=== PATIENT | female | born 1945 | race Caucasian/White ===

== ENCOUNTER 2019-03-17 11:29 | Inpatient (IN) | payer MEDICARE, OTHER ==
[2019-03-17] MEDS ORDERED: HYDROmorphone 1 MG/ML 1 ML SYRINGE IVP STA (11:57)
[2019-03-17] MEDS ORDERED: SODIUM CHLORIDE 0.9% 1,000 ML IV STA (11:57)
[2019-03-17] MEDS ORDERED: VANCOMYCIN IV PER PHARMACY 1 EACH MISC MISCELLANE PRN ×2 (11:58→16:10)
--- NOTE | 2019-03-17 12:25 | ED ---
Skin/Abscess/FB HPI - General Chief complaint: Skin/Abscess/Foreign Body Stated complaint: Bed sores Time Seen by Provider: 03/17/19 11:36 Source: patient, family, EMS, RN notes reviewed, old records reviewed Mode of arrival: EMS Limitations: no limitations - History of Present Illness Initial comments: This is a 73-year-old female presenting for the evaluation regarding multiple issues no doctor chronic medical issues patient is a smoker some shortness of breath but mostly debility. Patient is up and taking care of herself well has not had a shower in over 4 years does make it to and from the toilet occasionally was unable to make it to the toilet today and has not really moved in a few days. Patient does urinate herself which her changes once every 3 days. Patient is unable to here in the ER secondary to pain abdominal pain back pain but thoughts pain and thigh pain. Patient is draining rashes from all these areas and is afebrile. Again on no medical history as patient does not follow-up with family physician. MD complaint: rash, abscess/boil -: year(s) Location: buttocks, LLE, RLE Severity: severe Severity scale (1-10): 7 Quality: aching Consistency: constant Improves with: none Worsens with: immobilization Context: recent illness Associated symptoms: chills, malaise Treatments Prior to Arrival: none - Related Data Allergies Allergy/AdvReac Type Severity Reaction Status Date / Time Penicillins Allergy Rash/Hives Verified 03/17/19 11:39 Review of Systems ROS Statement: Those systems with pertinent positive or pertinent negative responses have been documented in the HPI. ROS Other: All systems not noted in ROS Statement are negative. Past Medical History Past Medical History: Cancer, Hyperlipidemia Additional Past Medical History / Comment(s): uterine ca History of Any Multi-Drug Resistant Organisms: None Reported Past Surgical History: Hysterectomy Additional Past Surgical History / Comment(s): cervical fusion Past Psychological History: No Psychological Hx Reported Smoking Status: Heavy tobacco smoker Past Alcohol Use History: None Reported Past Drug Use History: None Reported General Exam Limitations: no limitations General appearance: alert, in no apparent distress Head exam: Present: atraumatic, normocephalic, normal inspection Eye exam: Present: normal appearance, PERRL, EOMI. Absent: scleral icterus, conjunctival injection, periorbital swelling ENT exam: Present: normal exam, mucous membranes moist Neck exam: Present: normal inspection. Absent: tenderness, meningismus, lymphadenopathy Respiratory exam: Present: normal lung sounds bilaterally. Absent: respiratory distress, wheezes, rales, rhonchi, stridor Cardiovascular Exam: Present: normal rhythm, tachycardia, normal heart sounds. Absent: systolic murmur, diastolic murmur, rubs, gallop, clicks GI/Abdominal exam: Present: soft, normal bowel sounds. Absent: distended, tenderness, guarding, rebound, rigid Extremities exam: Present: normal inspection, full ROM, normal capillary refill. Absent: tenderness, pedal edema, joint swelling, calf tenderness Back exam: Present: normal inspection Neurological exam: Present: alert, oriented X3, CN II-XII intact Psychiatric exam: Present: normal affect, normal mood Skin exam: Present: warm, dry, intact, normal color. Absent: rash Course Vital Signs 03/17/19 03/17/19 11:39 14:09 Temperature 98.9 F Pulse Rate 108 H 64 Respiratory 18 18 Rate Blood Pressure 148/63 144/83 O2 Sat by Pulse 95 99 Oximetry Medical Decision Making - Medical Decision Making 73 female here for evaluation of debility patient has significantly decreased movement and activity for about 4 years significant lesions throughout her body with purulent drainage. Patient will be admitted for IV antibiotics and wound care - Lab Data Result diagrams: 03/17/19 12:12 03/17/19 12:12 Lab Results 03/17/19 03/17/19 03/17/19 Range/Units 12:12 12:12 12:12 WBC 10.8 H (3.8-10.6) k/uL RBC 5.01 (3.80-5.40) m/uL Hgb 15.8 (11.4-16.0) gm/dL Hct 48.4 H (34.0-46.0) % MCV 96.5 (80.0-100.0) fL MCH 31.5 (25.0-35.0) pg MCHC 32.7 (31.0-37.0) g/dL RDW 13.5 (11.5-15.5) % Plt Count 149 L (150-450) k/uL Neutrophils % 84 % Lymphocytes % 10 % Monocytes % 4 % Eosinophils % 2 % Basophils % 0 % Neutrophils # 9.0 H (1.3-7.7) k/uL Lymphocytes # 1.1 (1.0-4.8) k/uL Monocytes # 0.4 (0-1.0) k/uL Eosinophils # 0.2 (0-0.7) k/uL Basophils # 0.0 (0-0.2) k/uL PT (9.0-12.0) sec INR (<1.2) APTT (22.0-30.0) sec Sodium 142 (137-145) mmol/L Potassium 4.5 (3.5-5.1) mmol/L Chloride 112 H (98-107) mmol/L Carbon Dioxide 21 L (22-30) mmol/L Anion Gap 9 mmol/L BUN 57 H (7-17) mg/dL Creatinine 1.50 H (0.52-1.04) mg/dL Est GFR (CKD-EPI)AfAm 39 (>60 ml/min/1.73 sqM) Est GFR (CKD-EPI)NonAf 34 (>60 ml/min/1.73 sqM) Glucose 196 H (74-99) mg/dL Plasma Lactic Acid Landry 2.8 H* (0.7-2.0) mmol/L Calcium 10.2 (8.4-10.2) mg/dL Phosphorus 2.3 L (2.5-4.5) mg/dL Magnesium 2.4 H (1.6-2.3) mg/dL Total Bilirubin 0.8 (0.2-1.3) mg/dL AST 26 (14-36) U/L ALT 16 (4-34) U/L Alkaline Phosphatase 109 (38-126) U/L Creatine Kinase 38 (30-135) U/L Troponin I (0.000-0.034) ng/mL NT-Pro-B Natriuret Pep pg/mL Total Protein 6.4 (6.3-8.2) g/dL Albumin 3.6 (3.5-5.0) g/dL Urine Color Urine Appearance (Clear) Urine pH (5.0-8.0) Ur Specific [place] (1.001-1.035) Urine Protein (Negative) Urine Glucose (UA) (Negative) Urine Ketones (Negative) Urine Blood (Negative) Urine Nitrite (Negative) Urine Bilirubin (Negative) Urine Urobilinogen (<2.0) mg/dL Ur Leukocyte Esterase (Negative) Urine RBC (0-5) /hpf Urine WBC (0-5) /hpf Amorphous Sediment (None) /hpf Urine Bacteria (None) /hpf Hyaline Casts (0-2) /lpf Urine Mucus (None) /hpf 03/17/19 03/17/19 03/17/19 Range/Units 12:12 12:12 12:12 WBC (3.8-10.6) k/uL RBC (3.80-5.40) m/uL Hgb (11.4-16.0) gm/dL Hct (34.0-46.0) % MCV (80.0-100.0) fL MCH (25.0-35.0) pg MCHC (31.0-37.0) g/dL RDW (11.5-15.5) % Plt Count (150-450) k/uL Neutrophils % % Lymphocytes % % Monocytes % % Eosinophils % % Basophils % % Neutrophils # (1.3-7.7) k/uL Lymphocytes # (1.0-4.8) k/uL Monocytes # (0-1.0) k/uL Eosinophils # (0-0.7) k/uL Basophils # (0-0.2) k/uL PT 9.9 (9.0-12.0) sec INR 0.9 (<1.2) APTT 23.4 (22.0-30.0) sec Sodium (137-145) mmol/L Potassium (3.5-5.1) mmol/L Chloride (98-107) mmol/L Carbon Dioxide (22-30) mmol/L Anion Gap mmol/L BUN (7-17) mg/dL Creatinine (0.52-1.04) mg/dL Est GFR (CKD-EPI)AfAm (>60 ml/min/1.73 sqM) Est GFR (CKD-EPI)NonAf (>60 ml/min/1.73 sqM) Glucose (74-99) mg/dL Plasma Lactic Acid Landry (0.7-2.0) mmol/L Calcium (8.4-10.2) mg/dL Phosphorus (2.5-4.5) mg/dL Magnesium (1.6-2.3) mg/dL Total Bilirubin (0.2-1.3) mg/dL AST (14-36) U/L ALT (4-34) U/L Alkaline Phosphatase (38-126) U/L Creatine Kinase (30-135) U/L Troponin I 0.022 (0.000-0.034) ng/mL NT-Pro-B Natriuret Pep 556 pg/mL Total Protein (6.3-8.2) g/dL Albumin (3.5-5.0) g/dL Urine Color Urine Appearance (Clear) Urine pH (5.0-8.0) Ur Specific [place] (1.001-1.035) Urine Protein (Negative) Urine Glucose (UA) (Negative) Urine Ketones (Negative) Urine Blood (Negative) Urine Nitrite (Negative) Urine Bilirubin (Negative) Urine Urobilinogen (<2.0) mg/dL Ur Leukocyte Esterase (Negative) Urine RBC (0-5) /hpf Urine WBC (0-5) /hpf Amorphous Sediment (None) /hpf Urine Bacteria (None) /hpf Hyaline Casts (0-2) /lpf Urine Mucus (None) /hpf 03/17/19 Range/Units 13:00 WBC (3.8-10.6) k/uL RBC (3.80-5.40) m/uL Hgb (11.4-16.0) gm/dL Hct (34.0-46.0) % MCV (80.0-100.0) fL MCH (25.0-35.0) pg MCHC (31.0-37.0) g/dL RDW (11.5-15.5) % Plt Count (150-450) k/uL Neutrophils % % Lymphocytes % % Monocytes % % Eosinophils % % Basophils % % Neutrophils # (1.3-7.7) k/uL Lymphocytes # (1.0-4.8) k/uL Monocytes # (0-1.0) k/uL Eosinophils # (0-0.7) k/uL Basophils # (0-0.2) k/uL PT (9.0-12.0) sec INR (<1.2) APTT (22.0-30.0) sec Sodium (137-145) mmol/L Potassium (3.5-5.1) mmol/L Chloride (98-107) mmol/L Carbon Dioxide (22-30) mmol/L Anion Gap mmol/L BUN (7-17) mg/dL Creatinine (0.52-1.04) mg/dL Est GFR (CKD-EPI)AfAm (>60 ml/min/1.73 sqM) Est GFR (CKD-EPI)NonAf (>60 ml/min/1.73 sqM) Glucose (74-99) mg/dL Plasma Lactic Acid Landry (0.7-2.0) mmol/L Calcium (8.4-10.2) mg/dL Phosphorus (2.5-4.5) mg/dL Magnesium (1.6-2.3) mg/dL Total Bilirubin (0.2-1.3) mg/dL AST (14-36) U/L ALT (4-34) U/L Alkaline Phosphatase (38-126) U/L Creatine Kinase (30-135) U/L Troponin I (0.000-0.034) ng/mL NT-Pro-B Natriuret Pep pg/mL Total Protein (6.3-8.2) g/dL Albumin (3.5-5.0) g/dL Urine Color Yellow Urine Appearance Cloudy H (Clear) Urine pH 5.0 (5.0-8.0) Ur Specific [place] 1.026 (1.001-1.035) Urine Protein 1+ H (Negative) Urine Glucose (UA) Negative (Negative) Urine Ketones Trace H (Negative) Urine Blood Negative (Negative) Urine Nitrite Negative (Negative) Urine Bilirubin Negative (Negative) Urine Urobilinogen <2.0 (<2.0) mg/dL Ur Leukocyte Esterase Moderate H (Negative) Urine RBC 2 (0-5) /hpf Urine WBC 11 H (0-5) /hpf Amorphous Sediment Moderate H (None) /hpf Urine Bacteria Occasional H (None) /hpf Hyaline Casts 58 H (0-2) /lpf Urine Mucus Rare H (None) /hpf - EKG Data -: EKG Interpreted by Me (EKG shows sinus rhythm rate of 101, W[place] 150, QRS 60, QTC 417) - Radiology Data Radiology results: report reviewed (CT chest pelvis is negative for significant acute disease no no viable abscesses are air), image reviewed Disposition Clinical Impression: Cellulitis, Rash, Sepsis, Debility Disposition: ADMITTED IP TO THIS HOSP Condition: Fair Is patient prescribed a controlled substance at d/c from ED?: No Referrals: None,Stated [Primary Care Provider] - 1-2 days
[2019-03-17 12:30] LABS: Basophils % (A) 0 %; Eosinophils # (A) 0.2 k/uL (0-0.7); Eosinophils % (A) 2 %; HCT 48.4 % (34.0-46.0); HGB 15.8 gm/dL (11.4-16.0); Lymphocytes # (A) 1.1 k/uL (1.0-4.8); Lymphocytes % (A) 10 %; MCH 31.5 pg (25.0-35.0); MCHC 32.7 g/dL (31.0-37.0); MCV 96.5 fL (80.0-100.0); Mean Platelet Volume 10.1; Monocytes # (A) 0.4 k/uL (0-1.0); Monocytes % (A) 4 %; Neutrophils % (A) 84 %; Platelet Count 149 k/uL (150-450); RBC 5.01 m/uL (3.80-5.40); RDW 13.5 % (11.5-15.5); WBC 10.8 k/uL (3.8-10.6)
[2019-03-17] MEDS ORDERED: VANCOMYCIN 1,500 MG in SODIUM CHLORIDE 0.9% 250 ML IVPB ONE (12:30)
[2019-03-17 12:40] LABS: Albumin 3.6 g/dL (3.5-5.0); Calcium 10.2 mg/dL (8.4-10.2); Magnesium 2.4 mg/dL (1.6-2.3); Phosphorus 2.3 mg/dL (2.5-4.5); Potassium 4.5 mmol/L (3.5-5.1); Total Bilirubin 0.8 mg/dL (0.2-1.3); Total Protein 6.4 g/dL (6.3-8.2)
[2019-03-17 12:46] LABS: INR 0.9 (<1.2); Partial Thromboplastin Time 23.4 sec (22.0-30.0); Prothrombin Time 9.9 sec (9.0-12.0)
--- NOTE | 2019-03-17 12:53 | XR ---
EXAMINATION TYPE: XR chest 2V DATE OF EXAM: 03/17/2019 HISTORY: Weakness. REFERENCE: NONE. FINDINGS: There is a limited infiltrate in the medial aspect of the right middle lobe. The left lung is clear. Pleural spaces appear clear. Heart size upper limits of normal. IMPRESSION: RIGHT MIDDLE LOBE INFILTRATE.
[2019-03-17 13:19] LABS: Amorphous Sediment,Urine Moderate /hpf; Appearance,Urine Cloudy (Clear); Bacteria,Urine Occasional /hpf; Bilirubin,Urine Negative (Negative); Blood,Urine Negative (Negative); Color,Urine Yellow; Glucose,Urine (UA) Negative (Negative); Hyaline Casts,Urine 58 /lpf (0-2); Ketones,Urine Trace (Negative); Leukocyte Esterase,Urine Moderate (Negative); Mucus,Urine Rare /hpf; Nitrite,Urine Negative (Negative); Protein,Urine 1+ (Negative); RBC,Urine 2 /hpf (0-5); Specific Gravity,Urine 1.026 (1.001-1.035); Urobilinogen,Urine <2.0 mg/dL (<2.0); WBC,Urine 11 /hpf (0-5)
--- NOTE | 2019-03-17 14:02 | CT ---
EXAMINATION TYPE: CT ChestAbdPelvis wo con DATE OF EXAM: 03/17/2019 COMPARISON: NONE HISTORY: cough, bed sores CT DLP: 5591.4 mGycm Automated exposure control for dose reduction was used. TECHNIQUE: Helical acquisition through the abdomen and pelvis was obtained without oral or intravenou s contrast. The data was formatted in the axial, coronal and sagittal projections. FINDINGS: There is breathing motion artifact on this study. There is atelectasis present in the depen dent portions of the lungs. There is no significant axillary, internal mammary, mediastinal or hilar adenopathy. There is no pleural or pericardial fluid. The heart is enlarged. There is a small sliding hiatal hernia. Within the abdomen, is elevation right hemidiaphragm. The liver is normal in size. The gallbladder is normal. The spleen is unremarkable. Both adrenal glands appear normal. There is no evidence of nephrolithiasis or hydronephrosis. Limited views of the pancreas are unremarkable. There is moderate to severe atheromatous calcification of the visualized arterial tree. There is no significant retroperitoneal, iliac or inguinal adenopathy. The bladder is unremarkable. The uterus and ovaries are not visualized. There is a large amount of stool within the rectum. There is no significant diverticular change and t here is no radiographic evidence of diverticulitis. The appendix is not seen with certainty. Small bowel loops are within normal limits. There is no free fluid and no free air. There is facet arthropathy in the lower lumbar spine. No bony destructive lesion is seen. IMPRESSION: 1. CARDIOMEGALY. 2. SMALL, SLIDING HILUM HERNIA. 3. CONSTIPATION.
[2019-03-17] MEDS ORDERED: NALOXONE 0.4 MG/ML 1 ML VIAL IV PRN (16:08)
--- NOTE | 2019-03-17 16:11 | P.HPIM ---
History of Present Illness H&P Date: 03/17/19 Chief Complaint: Weakness 73-year-old female presenting for the evaluation regarding multiple wounds on her buttocks. Patient does not have a doctor and doesn't take medications on a chronic basis. She smokes daily. most of this history was taken from her family as patient is slightly confused. Family stated that patient spends most of her time sitting in the chair and it is even hard for her to ambulate with his bathroom. Family also stated that she even sleeps in the chair at night. Over the last few she has been significantly more weak. she has also been having nausea and vomiting as well. No fevers or chills. No diarrhea. No chest pain or shortness of breath. Family stated that she has not had a shower in over 4 years. Patient complained from dysuria. Patient does urinate on herself at times. Patient is complaining from left sided abdominal pain as well as lower back pain. Patient also has draining rashes from the lower back and the buttocks. Review of Systems complete review of system performed, pertinent positives per HPI, otherwise negative Past Medical History Past Medical History: Hyperlipidemia Additional Past Medical History / Comment(s): uterine ca History of Any Multi-Drug Resistant Organisms: None Reported Past Surgical History: Hysterectomy Additional Past Surgical History / Comment(s): cervical fusion Past Psychological History: No Psychological Hx Reported Smoking Status: Heavy tobacco smoker Past Alcohol Use History: None Reported Past Drug Use History: None Reported Medications and Allergies Home Medications Medication Instructions Recorded Confirmed Type Aspirin EC [Ecotrin Low Dose] 81 mg PO DAILY 03/17/19 03/17/19 History Naproxen Sodium [Aleve] 440 - 660 mg PO DAILY PRN 03/17/19 03/17/19 History Allergies Allergy/AdvReac Type Severity Reaction Status Date / Time Penicillins Allergy Rash/Hives Verified 03/17/19 15:16 Physical Exam Vitals: Vital Signs Temp Pulse Resp BP Pulse Ox 03/17/19 14:09 64 18 144/83 99 03/17/19 11:39 98.9 F 108 H 18 148/63 95 Intake and Output 03/17/19 03/17/19 03/17/19 06:59 14:59 22:59 Other: Weight 74.843 kg Constitutional: No acute distress Eyes:Anicteric sclerae, moist conjunctiva, no lid-lag, PERRLA, ENMT: Oropharynx clear, no erythema, exudates. dry mucous membranes. Neck: Supple, FROM, no masses, or JVD, No carotid bruits, No thyromegaly Lungs: bilateral rhonchi and wheezes, Normal respiratory effort, no accessory muscle use Cardiovascular: Heart regular in rate and rhythm, No murmurs, gallops, or rubs, No peripheral edema Abdominal: Soft, Nontender, no guarding, rebound or rigidity, Normoactive bowel sounds, No hepatomegaly, No splenomegaly, No palpable mass Skin: lower back and left injuinal areas with the extreme irritation/erythema, redness and spots of bleeding. Normal temperature, tone, texture, turgor, no induration, No subcutaneous nodules, No rash, lesions, No ulcers Extremities: No digital cyanosis, No clubbing, Pedal pulses intact and symmetrical, Radial pulses intact and symmetrical, No calf tenderness Psychiatric: Alert and oriented to person, place but not day of the week or the year, flat affect Neuro: general weakness, no focal sensory deficits Results CBC & Chem 7: 03/17/19 12:12 03/17/19 12:12 Labs: Abnormal Lab Results - Last 24 Hours (Table) 03/17/19 03/17/19 03/17/19 Range/Units 12:12 12:12 12:12 WBC 10.8 H (3.8-10.6) k/uL Hct 48.4 H (34.0-46.0) % Plt Count 149 L (150-450) k/uL Neutrophils # 9.0 H (1.3-7.7) k/uL Chloride 112 H (98-107) mmol/L Carbon Dioxide 21 L (22-30) mmol/L BUN 57 H (7-17) mg/dL Creatinine 1.50 H (0.52-1.04) mg/dL Glucose 196 H (74-99) mg/dL Plasma Lactic Acid Landry 2.8 H* (0.7-2.0) mmol/L Phosphorus 2.3 L (2.5-4.5) mg/dL Magnesium 2.4 H (1.6-2.3) mg/dL Urine Appearance (Clear) Urine Protein (Negative) Urine Ketones (Negative) Ur Leukocyte Esterase (Negative) Urine WBC (0-5) /hpf Amorphous Sediment (None) /hpf Urine Bacteria (None) /hpf Hyaline Casts (0-2) /lpf Urine Mucus (None) /hpf 03/17/19 Range/Units 13:00 WBC (3.8-10.6) k/uL Hct (34.0-46.0) % Plt Count (150-450) k/uL Neutrophils # (1.3-7.7) k/uL Chloride (98-107) mmol/L Carbon Dioxide (22-30) mmol/L BUN (7-17) mg/dL Creatinine (0.52-1.04) mg/dL Glucose (74-99) mg/dL Plasma Lactic Acid Landry (0.7-2.0) mmol/L Phosphorus (2.5-4.5) mg/dL Magnesium (1.6-2.3) mg/dL Urine Appearance Cloudy H (Clear) Urine Protein 1+ H (Negative) Urine Ketones Trace H (Negative) Ur Leukocyte Esterase Moderate H (Negative) Urine WBC 11 H (0-5) /hpf Amorphous Sediment Moderate H (None) /hpf Urine Bacteria Occasional H (None) /hpf Hyaline Casts 58 H (0-2) /lpf Urine Mucus Rare H (None) /hpf Assessment and Plan Plan: Acute sepsis IV fluids Cycle lactic acid Source of infection likely cellulitis Follow WBC count Obtain wound cultures and blood cultures Lower back cellulitis Likely secondary to pressure ulcer Broad-spectrum antibiotics with ceftriaxone and vancomycin. Acute urinary tract infection Urine cultures Ceftriaxone as above General weakness/dehydration, severe/adult failure to thrive IV fluids Encourage eating Patient admitted over 2 midnights Disposition: Family counseled regarding Place of care, she probably requires some sort of assisted living versus long term placement
[2019-03-17] MEDS: SODIUM CHLORIDE 0.9% 500 ML 500 ML IV SCH ×4 (18:26→21:17)
[2019-03-17] MEDS: traMADol 50 MG TAB PO PRN (18:32)
[2019-03-17] MEDS: ONDANSETRON 4 MG/2 ML VIAL IVP PRN (18:50)
[2019-03-17] MEDS: SODIUM CHLORIDE 0.9% 1,000 ML IV SCH ×2 (21:17→23:30)
[2019-03-18] MEDS: SODIUM CHLORIDE 0.9% 1,000 ML IV SCH ×3 (04:56→20:04)
[2019-03-18] MEDS: traMADol 50 MG TAB PO PRN ×3 (04:57→18:39)
[2019-03-18 07:27] LABS: Basophils % (A) 0 %; Eosinophils # (A) 0.6 k/uL (0-0.7); Eosinophils % (A) 8 %; HCT 35.2 % (34.0-46.0); Hypochromasia Slight; Lymphocytes % (A) 12 %; MCH 32.3 pg (25.0-35.0); MCHC 32.8 g/dL (31.0-37.0); MCV 98.4 fL (80.0-100.0); Mean Platelet Volume 10.8; Monocytes # (A) 0.4 k/uL (0-1.0); Monocytes % (A) 5 %; Neutrophils # (A) 5.8 k/uL (1.3-7.7); Neutrophils % (A) 73 %; Platelet Count 101 k/uL (150-450); RBC 3.58 m/uL (3.80-5.40); RDW 13.7 % (11.5-15.5); WBC 7.8 k/uL (3.8-10.6)
[2019-03-18 07:46] LABS: Albumin 2.1 g/dL (3.5-5.0); Calcium 8.1 mg/dL (8.4-10.2); Phosphorus 2.1 mg/dL (2.5-4.5); Potassium 4.4 mmol/L (3.5-5.1); Total Bilirubin 0.4 mg/dL (0.2-1.3); Total Protein 4.3 g/dL (6.3-8.2)
[2019-03-18 07:49] LABS: HGB 11.6 gm/dL (11.4-16.0)
[2019-03-18] MEDS: ACETAMINOPHEN TAB 325 MG TAB PO PRN ×2 (07:51→13:51)
[2019-03-18] MEDS: ENOXAPARIN 40 MG/0.4 ML SYRINGE SQ SCH (07:54)
[2019-03-18] MEDS ORDERED: NYSTATIN 100,000UNIT/GM CREAM 30 GM TUBE TOPICAL SCH (10:15)
[2019-03-18] MEDS ORDERED: VANCOMYCIN 1,250 MG in SODIUM CHLORIDE 0.9% 250 ML IVPB SCH (12:00)
--- NOTE | 2019-03-18 14:30 | P.PN ---
Subjective Progress Note Date: 03/18/19 patient seen and examined at bedside reporting she is a little bit better today, daughter Nieves is present. the patient apparently nonambulatory for the last 2 weeks and was at home largely bedridden and sedentary with varying frequent 3-5 days in between diaper changes. Afebrile overnight leukocytosis resolving. the patient has significant dose comfort from her open ulcers, no acute events overnight Objective - Vital Signs Vital signs: Vital Signs Temp 97.7 F 03/18/19 07:00 Pulse 55 L 03/18/19 07:00 Resp 17 03/18/19 07:00 BP 106/68 03/18/19 07:00 Pulse Ox 97 03/18/19 07:00 Intake & Output 03/17/19 03/18/19 03/18/19 18:59 06:59 18:59 Intake Total 2715 236 Balance 2715 236 Weight 74.843 kg Intake: Intake, IV Titration 2715 Amount Sodium Chloride 0.9% 1, 1040 000 ml @ 130 mls/hr IV . Q7H42M [facility] Rx#:[id number] Sodium Chloride 0.9% 500 1500 ml 500 ml @ 1000 mls/hr IV Q35M [facility] Rx#:[id number] Vancomycin 1,250 mg In 125 Sodium Chloride 0.9% 250 ml @ 125 mls/hr IVPB Q24H [facility] Rx#:[id number] cefTRIAXone 1 gm In 50 Sodium Chloride 0.9% 50 ml @ 100 mls/hr IVPB Q24HR [facility] Rx#:[id number] Oral 236 Other: Voiding Method Diaper Diaper # Voids 2 - Exam Constitutional: No acute distress, conversant, pleasant Eyes: Anicteric sclerae, moist conjunctiva, no lid-lag, PERRLA ENMT: NC/AT,Oropharynx clear, no erythema, exudates Neck:Supple, FROM, no masses, or JVD, No carotid bruits; No thyromegaly Lungs: Clear to auscultation, Clear to percussion, Normal respiratory effort, no accessory muscle use Cardiovascular: Heart regular in rate and rhythm, No murmurs, gallops, or rubs no peripheral edema Abdominal: Soft Nontender, nom distended, no guarding, no rebound or rigidity, Normoactive bowel sounds No hepatomegaly, No splenomegaly, No palpable mass No abdominal wall hernia noted Skin: severe diaper rash with areas of open ulceration in the inguinal area bilaterally and buttocks with some surrounding erythema Extremities:No digital cyanosis No clubbing, Pedal pulses intact and symmetrical Radial pulses intact and symmetrical Normal gait and station, No calf tenderness Psychiatric: Alert and oriented to person, place and time, Appropriate affect Intact judgement Neuro: Muscles Strength 5/5 in all 4 extremities, Sensation to light touch grossly present throughout, Cranial nerves II-XII grossly intact. No focal sensory deficits - Labs CBC & Chem 7: 03/18/19 06:27 03/18/19 06:27 Labs: Abnormal Lab Results - Last 24 Hours (Table) 03/17/19 03/17/19 03/17/19 Range/Units 12:12 12:12 12:12 WBC 10.8 H (3.8-10.6) k/uL RBC (3.80-5.40) m/uL Hct 48.4 H (34.0-46.0) % Plt Count 149 L (150-450) k/uL Neutrophils # 9.0 H (1.3-7.7) k/uL Chloride 112 H (98-107) mmol/L Carbon Dioxide 21 L (22-30) mmol/L BUN 57 H (7-17) mg/dL Creatinine 1.50 H (0.52-1.04) mg/dL Glucose 196 H (74-99) mg/dL Plasma Lactic Acid Landry 2.8 H* (0.7-2.0) mmol/L Calcium (8.4-10.2) mg/dL Phosphorus 2.3 L (2.5-4.5) mg/dL Magnesium 2.4 H (1.6-2.3) mg/dL Total Protein (6.3-8.2) g/dL Albumin (3.5-5.0) g/dL Urine Appearance (Clear) Urine Protein (Negative) Urine Ketones (Negative) Ur Leukocyte Esterase (Negative) Urine WBC (0-5) /hpf Amorphous Sediment (None) /hpf Urine Bacteria (None) /hpf Hyaline Casts (0-2) /lpf Urine Mucus (None) /hpf 03/17/19 03/18/19 03/18/19 Range/Units 13:00 06:27 06:27 WBC (3.8-10.6) k/uL RBC 3.58 L (3.80-5.40) m/uL Hct (34.0-46.0) % Plt Count 101 L (150-450) k/uL Neutrophils # (1.3-7.7) k/uL Chloride 120 H (98-107) mmol/L Carbon Dioxide 18 L (22-30) mmol/L BUN 30 H (7-17) mg/dL Creatinine (0.52-1.04) mg/dL Glucose 118 H (74-99) mg/dL Plasma Lactic Acid Landry (0.7-2.0) mmol/L Calcium 8.1 L (8.4-10.2) mg/dL Phosphorus 2.1 L (2.5-4.5) mg/dL Magnesium (1.6-2.3) mg/dL Total Protein 4.3 L (6.3-8.2) g/dL Albumin 2.1 L (3.5-5.0) g/dL Urine Appearance Cloudy H (Clear) Urine Protein 1+ H (Negative) Urine Ketones Trace H (Negative) Ur Leukocyte Esterase Moderate H (Negative) Urine WBC 11 H (0-5) /hpf Amorphous Sediment Moderate H (None) /hpf Urine Bacteria Occasional H (None) /hpf Hyaline Casts 58 H (0-2) /lpf Urine Mucus Rare H (None) /hpf Microbiology - Last 24 Hours (Table) 03/17/19 13:00 Urine Culture - Preliminary Urine,Catheterized Assessment and Plan Plan: Acute sepsis * continue IV fluids * Source of infection likely cellulitis * leukocytosis resolved * Obtain wound cultures and blood cultures * ID consult pending inguinal and gluteal cutaneous candidiasis * initiate patient on nystatin cream and powder QID * Frequent diaper changes gluteal and buttock cellulitis * Likely secondary to pressure ulcer * Broad-spectrum antibiotics with ceftriaxone and vancomycin. urinary tract infection * Urine cultures are pending * ceftriaxone as above General weakness/dehydration, severe/adult failure to thrive * IV fluids * Encourage eating * consult PT/OT Disposition * [facility]
[2019-03-18] MEDS: NYSTATIN 100,000 UNIT/GM POWD 15 GM TOPICAL SCH ×2 (16:06→20:04)
[2019-03-18 16:15] VITALS: BMI 30.2
--- NOTE | 2019-03-18 18:21 | P.GSHP ---
History of Present Illness H&P Date: 03/18/19 Chief Complaint: Onychomycosis bilateral feet 73-year-old female seen at bedside at review history and physical is admitted in the hospital for possible urinary tract infection sepsis with medial pressure ulcers. Patient is being seen by our service for treatment of painful mycotic nails. As a history of hygienic issues. She does not recall the last time she had her nails reduced. Or treatment Past Medical History Past Medical History: Hyperlipidemia Additional Past Medical History / Comment(s): uterine ca History of Any Multi-Drug Resistant Organisms: None Reported Past Surgical History: Hysterectomy Additional Past Surgical History / Comment(s): cervical fusion Past Anesthesia/Blood Transfusion Reactions: No Reported Reaction Additional Past Anesthesia/Blood Transfusion Reaction / Comment(s): No history of blood transfusion Past Psychological History: No Psychological Hx Reported Smoking Status: Heavy tobacco smoker Past Alcohol Use History: None Reported Past Drug Use History: None Reported - Past Family History Father Family Medical History: Diabetes Mellitus, Hypertension Sister(s) Family Medical History: Deep Vein Thrombosis (DVT), Hypertension Brother(s) Family Medical History: Deep Vein Thrombosis (DVT) Medications and Allergies Home Medications Medication Instructions Recorded Confirmed Type Aspirin EC [Ecotrin Low Dose] 81 mg PO DAILY 03/17/19 03/17/19 History Naproxen Sodium [Aleve] 440 - 660 mg PO DAILY PRN 03/17/19 03/17/19 History Allergies Allergy/AdvReac Type Severity Reaction Status Date / Time Penicillins Allergy Rash/Hives Verified 03/17/19 15:16 Surgical - Exam Vital Signs Temp Pulse Resp BP Pulse Ox 98.9 F 108 H 18 148/63 95 03/17/19 11:39 03/17/19 11:39 03/17/19 11:39 03/17/19 11:39 03/17/19 11:39 - Cardiovascular Pedal pulses diminished nonpalpable bilateral and temperature texture tumor decreased bilateral no digital hair subplexus venous filling time increased by 10 - Integumentary Painful elongated mycotic nails 10 causing mechanical pressure to the surrounding soft tissue. There is localized erythema edema and pain with palpation patient is unable to wear shoes due to this. - Neurologic All epicritic and pallesthetic sensations grossly intact symmetrical bilateral - Musculoskeletal Range of motion ankle joint subtalar joint and midtarsal joint and metatarsophalangeal joint grossly normal symmetrical bilateral all inverters everters plantar flexors dorsiflexors grossly normal symmetrical bilateral Results - Labs 03/18/19 06:27 03/18/19 06:27 Abnormal Lab Results - Last 24 Hours (Table) 03/18/19 03/18/19 Range/Units 06:27 06:27 RBC 3.58 L (3.80-5.40) m/uL Plt Count 101 L (150-450) k/uL Chloride 120 H (98-107) mmol/L Carbon Dioxide 18 L (22-30) mmol/L BUN 30 H (7-17) mg/dL Glucose 118 H (74-99) mg/dL Calcium 8.1 L (8.4-10.2) mg/dL Phosphorus 2.1 L (2.5-4.5) mg/dL Total Protein 4.3 L (6.3-8.2) g/dL Albumin 2.1 L (3.5-5.0) g/dL Microbiology - Last 24 Hours (Table) 03/17/19 13:00 Urine Culture - Final Urine,Catheterized Diabetes panel 03/18/19 Range/Units 06:27 Sodium 142 (137-145) mmol/L Potassium 4.4 (3.5-5.1) mmol/L Chloride 120 H (98-107) mmol/L Carbon Dioxide 18 L (22-30) mmol/L BUN 30 H (7-17) mg/dL Creatinine 0.85 (0.52-1.04) mg/dL Glucose 118 H (74-99) mg/dL Calcium 8.1 L (8.4-10.2) mg/dL AST 19 (14-36) U/L ALT 10 (4-34) U/L Alkaline Phosphatase 61 (38-126) U/L Total Protein 4.3 L (6.3-8.2) g/dL Albumin 2.1 L (3.5-5.0) g/dL Calcium panel 03/18/19 Range/Units 06:27 Calcium 8.1 L (8.4-10.2) mg/dL Phosphorus 2.1 L (2.5-4.5) mg/dL Albumin 2.1 L (3.5-5.0) g/dL Pituitary panel 03/18/19 Range/Units 06:27 Sodium 142 (137-145) mmol/L Potassium 4.4 (3.5-5.1) mmol/L Chloride 120 H (98-107) mmol/L Carbon Dioxide 18 L (22-30) mmol/L BUN 30 H (7-17) mg/dL Creatinine 0.85 (0.52-1.04) mg/dL Glucose 118 H (74-99) mg/dL Calcium 8.1 L (8.4-10.2) mg/dL Adrenal panel 03/18/19 Range/Units 06:27 Sodium 142 (137-145) mmol/L Potassium 4.4 (3.5-5.1) mmol/L Chloride 120 H (98-107) mmol/L Carbon Dioxide 18 L (22-30) mmol/L BUN 30 H (7-17) mg/dL Creatinine 0.85 (0.52-1.04) mg/dL Glucose 118 H (74-99) mg/dL Calcium 8.1 L (8.4-10.2) mg/dL Total Bilirubin 0.4 (0.2-1.3) mg/dL AST 19 (14-36) U/L ALT 10 (4-34) U/L Alkaline Phosphatase 61 (38-126) U/L Total Protein 4.3 L (6.3-8.2) g/dL Albumin 2.1 L (3.5-5.0) g/dL Assessment and Plan Assessment: Painful onychomycosis bilateral feet Plan: Exam today we debrided the nails mechanically of all mycotic debris bilateral 10. He would benefit from podiatric care as patient unable mentally to perform this and does have peripheral vascular concerns. Can be done as an outpatient. For this consult
--- NOTE | 2019-03-18 23:13 | CONS ---
CONSULTATION DATE OF SERVICE: 03/18/2019 REASON FOR CONSULTATION: 1. Sacral wound. 2. UTI. HISTORY OF PRESENT ILLNESS: The patient is a 73-year-old female who was brought into the ER with concern about the patient not being able to take care of herself. The patient did have a problem with incontinence of urine and had developed significant excoriation of her sacral area. The patient apparently was also noted to be slightly confused and she has been getting more weak. She also had some nausea and vomiting. No fever was recorded. With these symptoms the patient was evaluated by the ER physician. On arrival in the ER, the patient was afebrile. The patient's white count was normal at 10.8. She was slightly dehydrated. Urine was cloudy with moderate leukocyte esterase. The patient did have a CT of abdomen and pelvis and chest completed showing cardiomegaly and some sliding hernia and constipation, but no acute abdomen. The patient was started on Rocephin for the UTI and Mycostatin powder and cream for her sacral wound. Infectious Disease was consulted for further recommendations regarding local wound care and antibiotic therapy. The patient at the time of my evaluation was afebrile. She was complaining of discomfort to the sacral wound area; however, unable to quantify it any further. No further nausea or vomiting has been reported or any diarrhea. She continues to deny having any chest pain, shortness of breath or cough. REVIEW OF SYSTEMS: Positive points have been mentioned in the HPI. Rest of the systems are negative. PAST MEDICAL HISTORY: 1. Hyperlipidemia. 2. Uterine cancer. 3. Chronic back pain. PAST SURGICAL HISTORY: 1. Hysterectomy. 2. Cervical fusion. SOCIAL HISTORY: The patient is a heavy smoker and continues to smoke. No drinking or drug use. FAMILY HISTORY: No pertinent findings were noticed. ALLERGIES: PENICILLIN. However, she has tolerated Rocephin without any problem. CURRENT MEDICATIONS: 1. Tylenol. 2. Rocephin. 3. Lovenox. 4. Narcan. 5. Mycostatin powder and cream. 6. Zofran. 7. Ultram. PHYSICAL EXAMINATION: Blood pressure is 119/57 with a pulse of 59, temperature 98.4. She is 97% on room air. General description is an elderly female lying in bed in no distress. No tachypnea or accessory muscle of respiration use. HEENT examination shows slight pallor. No scleral icterus. Oral mucosa membrane is dry. No pharyngeal erythema or thrush. NECK: Trachea is central. No thyromegaly. LUNGS: Unlabored breathing. Decreased breath sounds in the base. No wheeze or crackle. HEART: S1, S2. Regular rate and rhythm. ABDOMEN: Soft. No tenderness. No guarding or rigidity. EXTREMITIES: No edema of the feet. Examination of sacral area did show excoriated skin with a stage II pressure ulcer, though no definite cellulitis. Neurologically patient is awake, alert, oriented. Mood and affect normal. LABS: Hemoglobin is 11.6, white count of 7.8. BUN of 30, creatinine 0.85. has been normal. Urine was positive. Cultures are currently pending. DIAGNOSTIC IMPRESSION AND PLAN: 1. Patient admitted to hospital with generalized weakness, some nausea, vomiting, wound to the sacral area, likely from incontinence of urine and inability to be changed, but no evidence of any secondary bacterial cellulitis. 2. Positive urinalysis with urinary symptoms, likely symptomatic urinary tract infection from gram-negative pathogen. 3. PENICILLIN ALLERGY, but no history of anaphylaxis. PLAN: 1. Rocephin 1 gram IV piggyback daily while waiting for the urine culture to finalize. 2. Nystatin powder to the sacral wound area applied twice a day. Keep the area dry and off pressure. 3. Will follow up on clinical condition to further adjust medication if needed. Thank you for this consultation. Will follow this patient along with you. MMODL / IJN: [id number] /
[2019-03-19] MEDS: SODIUM CHLORIDE 0.9% 1,000 ML IV SCH ×2 (05:49→13:31)
[2019-03-19] MEDS: ENOXAPARIN 40 MG/0.4 ML SYRINGE SQ SCH (09:00)
[2019-03-19] MEDS: NYSTATIN 100,000 UNIT/GM POWD 15 GM TOPICAL SCH ×3 (09:00→21:57)
[2019-03-19] MEDS: ACETAMINOPHEN TAB 325 MG TAB PO PRN (12:36)
[2019-03-19 13:11] LABS: African American GFR (CKD) >90 (>60 ml/min/1.73 sqM); Anion Gap 5 mmol/L; Blood Urea Nitrogen 18 mg/dL (7-17); Calcium 9.1 mg/dL (8.4-10.2); Carbon Dioxide 17 mmol/L (22-30); Chloride 118 mmol/L (98-107); Glucose 133 mg/dL (74-99); Non-African American GFR(CKD) 86 (>60 ml/min/1.73 sqM); Potassium 4.1 mmol/L (3.5-5.1); Sodium 140 mmol/L (137-145)
--- NOTE | 2019-03-19 13:13 | P.PN ---
Subjective Progress Note Date: 03/19/19 patient seen and examined at bedside reporting she is a little bit better today, daughter Nieves is present. [facility]. No acute events overnight Objective - Vital Signs Vital signs: Vital Signs Temp 98 F 03/19/19 07:00 Pulse 65 03/19/19 08:00 Resp 12 03/19/19 08:00 BP 154/71 03/19/19 07:00 Pulse Ox 97 03/19/19 12:03 Intake & Output 03/18/19 03/19/19 03/19/19 18:59 06:59 18:59 Intake Total 1196 560 Output Total 1 300 Balance 1196 559 -300 Weight 74.843 kg Intake: Intake, IV Titration 960 440 Amount Sodium Chloride 0.9% 1, 910 390 000 ml @ 130 mls/hr IV . [id number] [facility] Rx#:[id number] cefTRIAXone 1 gm In 50 50 Sodium Chloride 0.9% 50 ml @ 100 mls/hr IVPB Q24HR [facility] Rx#:[id number] Oral 236 120 Output: Urine 1 300 Other: Voiding Method Diaper Diaper Diaper # Voids 1 - Exam Constitutional: No acute distress, conversant, pleasant Eyes: Anicteric sclerae, moist conjunctiva, no lid-lag, PERRLA ENMT: NC/AT,Oropharynx clear, no erythema, exudates Neck:Supple, FROM, no masses, or JVD, No carotid bruits; No thyromegaly Lungs: Clear to auscultation, Clear to percussion, Normal respiratory effort, no accessory muscle use Cardiovascular: Heart regular in rate and rhythm, No murmurs, gallops, or rubs no peripheral edema Abdominal: Soft Nontender, nom distended, no guarding, no rebound or rigidity, Normoactive bowel sounds No hepatomegaly, No splenomegaly, No palpable mass No abdominal wall hernia noted Skin: severe diaper rash with areas of open ulceration in the inguinal area bi laterally and buttocks with some surrounding erythema Extremities:No digital cyanosis No clubbing, Pedal pulses intact and symmetrical Radial pulses intact and symmetrical Normal gait and station, No calf tenderness Psychiatric: Alert and oriented to person, place and time, Appropriate affect In tact judgement Neuro: Muscles Strength 5/5 in all 4 extremities, Sensation to light touch grossly present throughout, Cranial nerves II-XII grossly intact. No focal sensory deficits - Labs CBC & Chem 7: 03/18/19 06:27 03/19/19 11:24 Labs: Abnormal Lab Results - Last 24 Hours (Table) 03/19/19 Range/Units 11:24 Chloride 118 H (98-107) mmol/L Carbon Dioxide 17 L (22-30) mmol/L BUN 18 H (7-17) mg/dL Glucose 133 H (74-99) mg/dL Microbiology - Last 24 Hours (Table) 03/17/19 13:00 Urine Culture - Final Urine,Catheterized Assessment and Plan Plan: Acute sepsis * continue IV fluids * Source of infection likely cellulitis * leukocytosis resolved * Obtain wound cultures and blood cultures * appreciate ID recommendations inguinal and gluteal cutaneous candidiasis * initiate patient on nystatin cream and powder QID * Frequent diaper changes gluteal and buttock cellulitis * Likely secondary to severe diaper rash with secondary ulceration and cellulitis * Broad-spectrum antibiotics with ceftriaxone, vancomycin discontinued yesterday 03/18 urinary tract infection * Urine cultures indicating no growth * ceftriaxone as above General weakness/dehydration, severe/adult failure to thrive * IV fluids * Encourage eating * consult PT/OT Disposition * The patient will likely need placement at SNFfor ongoing physical therapy
--- NOTE | 2019-03-19 16:11 | PN ---
PROGRESS NOTE DATE OF SERVICE: 03/19/2019 REASON FOR FOLLOWUP: 1. Sacral wound with cutaneous candidiasis. 2. UTI. INTERVAL HISTORY: The patient is currently afebrile. The patient is breathing comfortably. The patient denies having any chest pain or shortness of breath or cough. No abdominal pain or any diarrhea reported. PHYSICAL EXAMINATION: Blood pressure 131/57, pulse of 88, temperature 98.2. She is 96% on room air. General description is an elderly female up in the chair in no distress. RESPIRATORY SYSTEM: Unlabored breathing. Clear to auscultation anteriorly. HEART: S1, S2. Regular rate and rhythm. ABDOMEN: Soft. No tenderness. LABS: Hemoglobin 11.6, white count 7.8. BUN of 18, creatinine 0.69. Urine culture so far pending. DIAGNOSTIC IMPRESSION AND PLAN: 1. Patient with sacral area excoriation, likely from moisture from incontinence of urine, with concern for a secondary fungal cellulitis. The patient is currently covered with nystatin powder; to continue. Keep the area dry and off pressure. 2. Positive urinalysis with concern for urinary tract infection. Continue Rocephin while awaiting further culture to finalize and continue with supportive care. MMODL / IJN: [id number] /
[2019-03-19] MEDS: traMADol 50 MG TAB PO PRN (17:01)
--- NOTE | 2019-03-19 20:32 | XR ---
EXAMINATION TYPE: XR chest 1V portable DATE OF EXAM: 03/19/2019 COMPARISON: 03/17/2019 HISTORY: Short of breath TECHNIQUE: Single view FINDINGS: There is mild blunting of the costophrenic angles. There is mild atelectasis at the lung ba ses. There is no obvious heart failure. Thoracic aorta is atheromatous. IMPRESSION: Small pleural effusions increased compared to recent exam. No obvious heart failure.
[2019-03-20] MEDS: ENOXAPARIN 40 MG/0.4 ML SYRINGE SQ SCH (08:25)
[2019-03-20] MEDS: NYSTATIN 100,000 UNIT/GM POWD 15 GM TOPICAL SCH ×3 (08:26→21:12)
--- NOTE | 2019-03-20 10:15 | P.PN ---
Subjective Progress Note Date: 03/20/19 Patient seen and examined at bedside, doing well without any significant issues. Nursing reporting diaper rash is improving significantly. No acute events overnight Objective - Vital Signs Vital signs: Vital Signs Temp 98.9 F 03/20/19 07:00 Pulse 71 03/20/19 07:00 Resp 15 03/20/19 07:00 BP 121/61 03/20/19 07:00 Pulse Ox 94 L 03/20/19 07:00 Intake & Output 03/19/19 03/20/19 03/20/19 18:59 06:59 18:59 Output Total 300 300 Balance -300 -300 Output: Urine 300 300 Other: Voiding Method Diaper Diaper Diaper - Exam Constitutional: No acute distress, conversant, pleasant Eyes: Anicteric sclerae, moist conjunctiva, no lid-lag, PERRLA ENMT: NC/AT,Oropharynx clear, no erythema, exudates Neck:Supple, FROM, no masses, or JVD, No carotid bruits; No thyromegaly Lungs: Clear to auscultation, Clear to percussion, Normal respiratory effort, no accessory muscle use Cardiovascular: Heart regular in rate and rhythm, No murmurs, gallops, or rubs no peripheral edema Abdominal: Soft Nontender, nom distended, no guarding, no rebound or rigidity, Normoactive bowel sounds No hepatomegaly, No splenomegaly, No palpable mass No abdominal wall hernia noted Skin: Initially severe diaper rash with areas of open ulceration in the inguinal area bilaterally and buttocks with some surrounding erythema now gradually improving Extremities:No digital cyanosis No clubbing, Pedal pulses intact and symmetrical Radial pulses intact and symmetrical Normal gait and station, No calf tenderness Psychiatric: Alert and oriented to person, place and time, Appropriate affect Intact judgement Neuro: Muscles Strength 5/5 in all 4 extremities, Sensation to light touch grossly present throughout, Cranial nerves II-XII grossly intact. No focal sensory deficits - Labs CBC & Chem 7: 03/18/19 06:27 03/19/19 11:24 Labs: Abnormal Lab Results - Last 24 Hours (Table) 03/19/19 Range/Units 11:24 Chloride 118 H (98-107) mmol/L Carbon Dioxide 17 L (22-30) mmol/L BUN 18 H (7-17) mg/dL Glucose 133 H (74-99) mg/dL Assessment and Plan Plan: Acute sepsis * continue IV fluids * Source of infection likely cellulitis * leukocytosis resolved * Obtain wound cultures and blood cultures * appreciate ID recommendations inguinal and gluteal cutaneous candidiasis * initiate patient on nystatin cream and powder QID * Frequent diaper changes gluteal and buttock cellulitis * Likely secondary to severe diaper rash with secondary ulceration and cellulitis * Broad-spectrum antibiotics with ceftriaxone, vancomycin discontinued yesterday 03/18 urinary tract infection * Urine cultures indicating no growth * ceftriaxone as above General weakness/dehydration, severe/adult failure to thrive * IV fluids * Encourage eating * consult PT/OT Onychomycosis * Status post mechanical debridement of all 10 toes bilaterally Disposition * The patient will likely need placement at SNFfor ongoing physical therapy
[2019-03-20] MEDS: ACETAMINOPHEN TAB 325 MG TAB PO PRN ×2 (13:39→19:18)
--- NOTE | 2019-03-20 15:21 | PN ---
PROGRESS NOTE DATE OF SERVICE: 03/20/2019 REASON FOR FOLLOWUP: 1. Urinary tract infection. 2. Sacral wound. INTERVAL HISTORY: The patient is currently afebrile. Patient has been breathing comfortably. Denies having any chest pain or any cough. No nausea, vomiting. No abdominal pain or any diarrhea. PHYSICAL EXAMINATION: Blood pressure 121/61 with a pulse of 71, temperature 98.9, 94% on room air. General description is an elderly female lying in bed in no distress. Respiratory system: Unlabored breathing, clear to auscultation anteriorly. Heart S1, S2. Regular rate and rhythm. Abdomen soft, no tenderness. LABS: BUN of 18, creatinine 0.69. Urine culture has been negative so far. DIAGNOSTIC IMPRESSION AND PLAN: 1. Patient with excoriation of the bilateral groin and sacral area, likely incontinence of urine. Continue with nystatin powder. 2. The patient has positive UA, concern for possible urinary tract infection. Currently covered with Rocephin. The urine cultures have been negative. Rocephin can be safely discontinued. Monitor clinical course closed. MMODL / IJN: [id number] /
[2019-03-20] MEDS: ONDANSETRON 4 MG/2 ML VIAL IVP PRN (17:13)
[2019-03-21] MEDS: ENOXAPARIN 40 MG/0.4 ML SYRINGE SQ SCH ×2 (08:07→08:08)
[2019-03-21] MEDS: NYSTATIN 100,000 UNIT/GM POWD 15 GM TOPICAL SCH ×3 (08:08→22:20)
[2019-03-21] MEDS: traMADol 50 MG TAB PO PRN ×2 (12:05→22:19)
--- NOTE | 2019-03-21 14:31 | PN ---
PROGRESS NOTE DATE OF SERVICE: 03/21/2019 REASON FOR FOLLOW UP: Sacral wound with excoriation with drainage and question of cellulitis. INTERVAL HISTORY: The patient is currently afebrile. Patient has been breathing comfortably. The patient denies having any chest pain. No cough. . No nausea, vomiting. No diarrhea. PHYSICAL EXAMINATION: Blood pressure 100/57 with a pulse of 83, temperature 99. She is 96% on room air. General description is an elderly female, lying in bed in no distress. RESPIRATORY SYSTEM: Unlabored breathing, clear to auscultation anteriorly. HEART: S1, S2. Regular rate and rhythm. Sacral area discoloration has improved. No significant redness, minimal drainage. LABS: White count of normal 7.8, creatinine 0.69. DIAGNOSTIC IMPRESSION AND PLAN: Patient with sacral area excoriation likely from the urine incontinence with concern for skin cellulitis. Local care to continue with dry . Keep the area dry and off the pressure. A short course of oral doxycycline discussed with the admitting service. Continue supportive care. Daughter was present at bedside. Questions were answered. MMODL / IJN: [id number] /
[2019-03-21] MEDS: ACETAMINOPHEN TAB 325 MG TAB PO PRN (17:03)
[2019-03-21 19:43] VITALS: RESP 16
[2019-03-22 02:40] VITALS: PULSE 72
[2019-03-22] MEDS: traMADol 50 MG TAB PO PRN ×2 (05:00→10:31)
[2019-03-22] MEDS: NYSTATIN 100,000 UNIT/GM POWD 15 GM TOPICAL SCH (07:24)
[2019-03-22] MEDS: ENOXAPARIN 40 MG/0.4 ML SYRINGE SQ SCH (07:24)
[2019-03-22 07:57] VITALS: BP 125/64; TEMP 97.6
[2019-03-22] MEDS: ACETAMINOPHEN TAB 325 MG TAB PO PRN (09:32)
--- NOTE | 2019-03-22 11:55 | P.DS ---
Providers Date of admission: 03/17/19 15:06 Expected date of discharge: 03/21/19 Attending physician: Homa Powers MD Consults: 03/17/19 17:47 Consult Physician Routine Consulting Provider: Nehemiah Mantilla Consult Reason/Comments: wounds on buttocks,thighs,and toe Do you want consulting provider notified?: Yes 03/18/19 10:13 Consult Physician Routine Consulting Provider: Dany Langley Consult Reason/Comments: severe onchomycosis Do you want consulting provider notified?: Yes Primary care physician: Stated None Hospital Course: Discharge diagnosis Sepsis Lower back/Gluteal cellulitis inguinal and gluteal cutaneous candidiasis Probable UTI Onychomycosis Generalized weakness Hospital course The patient is a 73-year-old female that presented to the ER is admitted with sepsis after presenting with a white count of 10.8, abnormal urinalysis and likely lower back gluteal cellulitis. Patient was started on empiric IV antibiotics with vancomycin and Rocephin. Apparently the patient had been increasingly weak and incontinent and was having very infrequent diaper changes 3-5 days. Examination revealed severe erythema, excoriation and ulceration Of the lower back gluteal and inguinal areas. This was attributed due to severe diaper rash with secondary cellulitis. Patient was initiated on nystatin cream and powder, vancomycin was discontinued. Urine culture actually showed normal yvette. Blood cultures are negative. podiatry was consulted and had debridement of her severe toe onychomycosis. [facility] with plans for ongoing physical therapy. This discharge process took approximately 35 minutes Physical exam Integumentary : Initially severe diaper rash with areas of open ulceration in the inguinal area bilaterally and buttocks with some surrounding erythema now gradually improving Patient Condition at Discharge: Fair Plan - Discharge Summary Discharge Rx Participant: Yes New Discharge Prescriptions: New Nystatin 100,000 Unit/gm Powd [Mycostatin Powder] 1 applic TOPICAL TID #30 applic Doxycycline Hyclate 100 mg PO BID 7 Days #14 tab Continue Naproxen Sodium [Aleve] 440 - 660 mg PO DAILY PRN PRN Reason: Pain Aspirin EC [Ecotrin Low Dose] 81 mg PO DAILY Discharge Medication List Aspirin EC [Ecotrin Low Dose] 81 mg PO DAILY 03/17/19 [History] Naproxen Sodium [Aleve] 440 - 660 mg PO DAILY PRN 03/17/19 [History] Doxycycline Hyclate 100 mg PO BID 7 Days #14 tab 03/21/19 [Rx] Nystatin 100,000 Unit/gm Powd [Mycostatin Powder] 1 applic TOPICAL TID #30 applic 03/21/19 [Rx] Follow up Appointment(s)/Referral(s): None,Stated [Primary Care Provider] - 1-2 days Discharge Disposition: TRANSFER TO SNF/ECF
--- NOTE | 2019-03-22 12:48 | XR ---
EXAMINATION TYPE: XR foot complete LT DATE OF EXAM: 03/22/2019 CLINICAL HISTORY: Pain worse in the heel TECHNIQUE: Frontal, lateral, and oblique images of the left foot are obtained. COMPARISON: None FINDINGS: Demineralization is present. There is no acute fracture/dislocation evident in the left fo ot. Nayak's toe is seen. Old healed fracture distal diaphysis fifth metatarsal. Small to moderate-si ze superior and inferior calcaneal spurs. Mild diffuse subcutaneous edema. IMPRESSION: As above.
--- NOTE | 2019-03-22 13:39 | PN ---
PROGRESS NOTE DATE OF SERVICE: 03/22/2019 REASON FOR FOLLOWUP: Sacral diaper rash/cellulitis. INTERVAL HISTORY: The patient is currently afebrile. The patient is breathing comfortably. Patient denies having any chest pain or any cough. No nausea or vomiting. Has been complaining of some discomfort in the sacral area, but no worsening. PHYSICAL EXAMINATION: Blood pressure is 125/64 with a pulse of 7, temperature 97.6. She is 94% on room air. General description is an elderly female up in the chair in no distress. RESPIRATORY SYSTEM: Unlabored breathing, clear to auscultation anteriorly. HEART: S1, S2. Regular rate and rhythm. ABDOMEN: Soft, no tenderness. EXTREMITIES: No edema of the feet. LABS: No new labs have been obtained today. DIAGNOSTIC IMPRESSION AND PLAN: Patient with sacral area excoriation, likely from incontinence of urine, possible cutaneous candidiasis with concern for possible cellulitis. The patient is currently covered with nystatin powder. Given a short course of oral . Keep the area dry and off the pressure. Family at the bedside. Their questions were answered. MMODL / IJN: [id number] /
== END 2019-03-22 14:03 | DRG 872 ==
LOC: EC 11:29 → 4SSUR 15:06
PROVIDERS: ADMIT Internal Medicine; ATTEND Internal Medicine
DX: A41.9 Sepsis, unspecified organism (principal); L03.312 Cellulitis of back [any part except buttock and flank]; L03.317 Cellulitis of buttock; N39.0 Urinary tract infection, site not specified; B35.1 Tinea unguium; B37.2 Candidiasis of skin and nail; E78.5 Hyperlipidemia, unspecified; E86.0 Dehydration; F17.210 Nicotine dependence, cigarettes, uncomplicated; K59.00 Constipation, unspecified; L02.92 Furuncle, unspecified; L22 Diaper dermatitis; L89.152 Pressure ulcer of sacral region, stage 2; R32 Unspecified urinary incontinence; R62.7 Adult failure to thrive; Z79.82 Long term (current) use of aspirin; Z82.49 Family history of ischemic heart disease and other diseases of the circulatory system; Z83.3 Family history of diabetes mellitus; Z83.2 Family history of diseases of the blood and blood-forming organs and certain disorders involving the immune mechanism; Z85.42 Personal history of malignant neoplasm of other parts of uterus; Z88.0 Allergy status to penicillin; Z90.710 Acquired absence of both cervix and uterus; Z98.1 Arthrodesis status; G89.29 Other chronic pain; Z79.899 Other long term (current) drug therapy
CPT/HCPCS: 36415; 71045; 71046; 71250; 74176; 80048; 80053; 81001; 82550; 83605; 83735; 83880; 84100; 84484; 85025; 85610; 85730; 87086; 93005; 94760; 96365; 96367; 96375; 99285

== ENCOUNTER 2019-03-29 15:18 | Inpatient (IN) | payer MEDICARE ==
[2019-03-29] MEDS ORDERED: ONDANSETRON 4 MG/2 ML VIAL IVP STA (15:56)
[2019-03-29] MEDS ORDERED: SODIUM CHLORIDE 0.9% 1,000 ML IV STA (15:56)
[2019-03-29] MEDS ORDERED: PANTOPRAZOLE 40 MG/10 ML VIAL IVP STA (15:56)
[2019-03-29] MEDS ORDERED: HYDROmorphone 0.5 MG/0.5 ML SYRINGE IVP STA ×2 (16:01→18:23)
[2019-03-29 16:14] LABS: Basophils % (A) 0 %; Eosinophils % (A) 0 %; HCT 38.2 % (34.0-46.0); HGB 12.2 gm/dL (11.4-16.0); Hypochromasia Slight; Lymphocytes # (A) 0.9 k/uL (1.0-4.8); Lymphocytes % (A) 7 %; MCH 30.4 pg (25.0-35.0); MCV 94.8 fL (80.0-100.0); Mean Platelet Volume 9.6; Monocytes # (A) 0.4 k/uL (0-1.0); Monocytes % (A) 3 %; Neutrophils # (A) 11.1 k/uL (1.3-7.7); Neutrophils % (A) 89 %; Platelet Count 273 k/uL (150-450); Poikilocytosis Slight; RBC 4.03 m/uL (3.80-5.40); RDW 14.7 % (11.5-15.5); WBC 12.5 k/uL (3.8-10.6)
[2019-03-29 16:25] LABS: Albumin 2.9 g/dL (3.5-5.0); Calcium 9.6 mg/dL (8.4-10.2); Potassium 3.6 mmol/L (3.5-5.1); Total Bilirubin 0.7 mg/dL (0.2-1.3); Total Protein 5.4 g/dL (6.3-8.2)
[2019-03-29] MEDS ORDERED: ASPIRIN 325 MG TAB PO STA (16:47)
[2019-03-29] MEDS ORDERED: HYDROmorphone 1 MG/ML 1 ML SYRINGE IVP STA (17:02)
[2019-03-29 17:30] LABS: INR 1.1 (<1.2); Prothrombin Time 11.4 sec (9.0-12.0)
[2019-03-29 17:35] LABS: Partial Thromboplastin Time 20.9 sec (22.0-30.0)
--- NOTE | 2019-03-29 17:35 | XR ---
EXAMINATION TYPE: XR KUB DATE OF EXAM: 03/29/2019 COMPARISON: None INDICATION: Abdomen pain TECHNIQUE: Single view abdomen frontal supine view FINDINGS: There is a normal bowel gas pattern. Psoas margins are normal. No organomegaly is present. Dense calcifications within the aorta and iliac vessels. IMPRESSION: 1. No acute process
--- NOTE | 2019-03-29 17:35 | XR ---
EXAMINATION TYPE: XR chest 2V DATE OF EXAM: 03/29/2019 COMPARISON: 19 March 2019 INDICATION: Chest pain TECHNIQUE: Frontal and lateral views of the chest are obtained. FINDINGS: The heart size is normal. The pulmonary vasculature is normal. There is a right lower lobe infiltrate. Small right pleural effusion is present. Mild left lower lobe infiltrate is present. Findings are worsening from the comparison.. IMPRESSION: 1. Right lower lobe consolidation with a possible small right pleural effusion. Correlate for pneumon ia. 2. Mild infiltrate at the left base. Correlate for atelectasis or pneumonia.
--- NOTE | 2019-03-29 19:06 | ED ---
General Adult HPI <Rg Rahman - Last Filed: 03/29/19 21:04> - General Source: patient, EMS Mode of arrival: EMS Limitations: no limitations <Marco Antonio Olea - Last Filed: 03/29/19 21:06> - General Chief complaint: Abdominal Pain Stated complaint: abd pain Time Seen by Provider: 03/29/19 15:40 - History of Present Illness Initial comments: Patient is 74-year-old female presenting to the emergency department with chief complaint of abdominal pain. Patient brought to the ED via EMS from a [facility]. Family member present in her room who states patient had nausea with multiple episodes of nonbilious, nonbloody vomiting for the past 2 days. Patient also developed a sudden onset of upper abdominal pain today. Patient denies fevers chills patient denies chest pain or shortness of breath this time. Patient denies any constipation or diarrhea. Patient reports the pain is not related to oral intake. Denies chest pain, shortness of breath or back pain. Patient was recently admitted to the ED for sepsis and cellulitis. Patient does not see a primary care physician. (Marco Antonio Olea) - Related Data Home Medications Medication Instructions Recorded Confirmed Aspirin EC [Ecotrin Low Dose] 81 mg PO DAILY 03/17/19 03/17/19 Naproxen Sodium [Aleve] 440 - 660 mg PO DAILY PRN 03/17/19 03/17/19 Previous Rx's Medication Instructions Recorded Doxycycline Hyclate 100 mg PO BID 7 Days #14 tab 03/21/19 Nystatin 100,000 Unit/gm Powd 1 applic TOPICAL TID #30 applic 03/21/19 [Mycostatin Powder] Allergies Allergy/AdvReac Type Severity Reaction Status Date / Time Penicillins Allergy Rash/Hives Verified 03/17/19 15:16 Review of Systems ROS Other: All systems not noted in ROS Statement are negative. <Rg Rahman - Last Filed: 03/29/19 21:04> ROS Other: All systems not noted in ROS Statement are negative. <Marco Antonio Olea - Last Filed: 03/29/19 21:06> ROS Statement: Those systems with pertinent positive or pertinent negative responses have been documented in the HPI. Past Medical History Past Medical History: Hyperlipidemia Additional Past Medical History / Comment(s): uterine ca History of Any Multi-Drug Resistant Organisms: None Reported Past Surgical History: Hysterectomy Additional Past Surgical History / Comment(s): cervical fusion Past Anesthesia/Blood Transfusion Reactions: No Reported Reaction Additional Past Anesthesia/Blood Transfusion Reaction / Comment(s): No history of blood transfusion Past Psychological History: No Psychological Hx Reported Smoking Status: Former smoker Past Alcohol Use History: None Reported Past Drug Use History: None Reported - Past Family History Father Family Medical History: Diabetes Mellitus, Hypertension Sister(s) Family Medical History: Deep Vein Thrombosis (DVT), Hypertension Brother(s) Family Medical History: Deep Vein Thrombosis (DVT) <Marco Antonio Olea - Last Filed: 03/29/19 21:06> General Exam Limitations: no limitations General appearance: alert, in distress Head exam: Present: atraumatic, normocephalic, normal inspection Eye exam: Present: normal appearance, PERRL, EOMI Pupils: Present: normal accommodation ENT exam: Present: normal exam, normal oropharynx, mucous membranes dry, TM's normal bilaterally, normal external ear exam Neck exam: Present: normal inspection, full ROM Respiratory exam: Present: normal lung sounds bilaterally Cardiovascular Exam: Present: regular rate, normal rhythm, normal heart sounds GI/Abdominal exam: Present: soft, guarding (Diffuse, mild) Extremities exam: Present: normal inspection, full ROM Back exam: Present: normal inspection, full ROM Neurological exam: Present: alert, oriented X3 Psychiatric exam: Present: normal affect, normal mood Skin exam: Present: warm, dry, intact, normal color <Marco Antonio Olea - Last Filed: 03/29/19 21:06> Course <Rg Rahman - Last Filed: 03/29/19 21:04> Vital Signs 03/29/19 03/29/19 03/29/19 15:23 18:15 19:49 Temperature 98.6 F Pulse Rate 80 65 72 Respiratory 18 16 18 Rate Blood Pressure 106/58 108/94 107/45 O2 Sat by Pulse 93 L 95 91 L Oximetry 03/29/19 20:42 Temperature Pulse Rate 69 Respiratory 16 Rate Blood Pressure 103/83 O2 Sat by Pulse 92 L Oximetry - Reevaluation(s) Reevaluation #1: 03/29/19 19:32 Patient reevaluated by myself, Dr. Rahman. Patient resting comfortably in bed stating she is feeling somewhat better. Abdomen does have mild guarding and moderate tenderness, more so the upper abdomen. Patient and family updated on results including CT results and elevated troponin and chest x-ray results. Case was discussed in detail with Dr. Han who will review CT scan and call back. 03/29/19 20:51 Dr. han did come evaluate patient and does not want to roger patient to the operating room. She does request ICU admission. Case was also discussed with Dr. San, who will consult. He is also discussed with Dr. Smith who will consult. He agrees no heparin at this time. Case was earlier discussed with Dr. Rodriguez, who will admit for some physician group was recently admitted this patient. 03/29/19 21:[address]. Smith both agreed not to heparinize patient secondary to concern about perforation. (Rg Rahman) Medical Decision Making - Lab Data Result diagrams: 03/29/19 15:33 03/29/19 15:33 <Rg Rahman - Last Filed: 03/29/19 21:04> - Lab Data Result diagrams: 03/29/19 15:33 03/29/19 15:33 <Marco Antonio Olea - Last Filed: 03/29/19 21:06> - Medical Decision Making Patient is 74-year-old female presenting to emergency Department with a chief complaint of abdominal pain. Patient brought to the ED via EMS. On examination patient does have upper abdominal tenderness with some guarding. Patient does have dry mucous members. Chest x-ray shows right lower lobe consolidation with small amounts of pleural effusion. Possible pneumonia. Mild infiltrate at the left lung base possibly atelectasis or pneumonia. KUB is unremarkable. Initial troponin a 5. EKG shows normal sinus rhythm with left anterior leg. T-wave inversions in V2 through V6. CT of abdomen and pelvis shows free air in the right upper quadrant suspected from the ascending colon or duodenum. I received report from . Dr. Traore was consulted and examined the patient. Repeat troponin is still about a 5. Patient will be admitted for further medical management. Dr. Rahman also examined the patient. Admitting physician is Dr. Elmore. Consulter Dr. Berger, Dr. Majano and Dr. Smith (Marco Antonio Olea) - Lab Data Lab Results 03/29/19 03/29/19 03/29/19 Range/Units 15:33 15:33 15:33 WBC 12.5 H (3.8-10.6) k/uL RBC 4.03 (3.80-5.40) m/uL Hgb 12.2 (11.4-16.0) gm/dL Hct 38.2 (34.0-46.0) % MCV 94.8 (80.0-100.0) fL MCH 30.4 (25.0-35.0) pg MCHC 32.0 (31.0-37.0) g/dL RDW 14.7 (11.5-15.5) % Plt Count 273 (150-450) k/uL Neutrophils % 89 % Lymphocytes % 7 % Monocytes % 3 % Eosinophils % 0 % Basophils % 0 % Neutrophils # 11.1 H (1.3-7.7) k/uL Lymphocytes # 0.9 L (1.0-4.8) k/uL Monocytes # 0.4 (0-1.0) k/uL Eosinophils # 0.0 (0-0.7) k/uL Basophils # 0.0 (0-0.2) k/uL Hypochromasia Slight Poikilocytosis Slight PT (9.0-12.0) sec INR (<1.2) APTT (22.0-30.0) sec Sodium 143 (137-145) mmol/L Potassium 3.6 (3.5-5.1) mmol/L Chloride 113 H (98-107) mmol/L Carbon Dioxide 18 L (22-30) mmol/L Anion Gap 12 mmol/L BUN 22 H (7-17) mg/dL Creatinine 0.85 (0.52-1.04) mg/dL Est GFR (CKD-EPI)AfAm 77 (>60 ml/min/1.73 sqM) Est GFR (CKD-EPI)NonAf 67 (>60 ml/min/1.73 sqM) Glucose 138 H (74-99) mg/dL Plasma Lactic Acid Landry (0.7-2.0) mmol/L Calcium 9.6 (8.4-10.2) mg/dL Magnesium (1.6-2.3) mg/dL Total Bilirubin 0.7 (0.2-1.3) mg/dL AST 53 H (14-36) U/L ALT 20 (4-34) U/L Alkaline Phosphatase 90 (38-126) U/L Troponin I 5.250 H* (0.000-0.034) ng/mL Total Protein 5.4 L (6.3-8.2) g/dL Albumin 2.9 L (3.5-5.0) g/dL Amylase 41 (30-110) U/L Lipase 55 (23-300) U/L 03/29/19 03/29/19 03/29/19 Range/Units 17:02 17:02 19:48 WBC (3.8-10.6) k/uL RBC (3.80-5.40) m/uL Hgb (11.4-16.0) gm/dL Hct (34.0-46.0) % MCV (80.0-100.0) fL MCH (25.0-35.0) pg MCHC (31.0-37.0) g/dL RDW (11.5-15.5) % Plt Count (150-450) k/uL Neutrophils % % Lymphocytes % % Monocytes % % Eosinophils % % Basophils % % Neutrophils # (1.3-7.7) k/uL Lymphocytes # (1.0-4.8) k/uL Monocytes # (0-1.0) k/uL Eosinophils # (0-0.7) k/uL Basophils # (0-0.2) k/uL Hypochromasia Poikilocytosis PT 11.4 (9.0-12.0) sec INR 1.1 (<1.2) APTT 20.9 L (22.0-30.0) sec Sodium (137-145) mmol/L Potassium (3.5-5.1) mmol/L Chloride (98-107) mmol/L Carbon Dioxide (22-30) mmol/L Anion Gap mmol/L BUN (7-17) mg/dL Creatinine (0.52-1.04) mg/dL Est GFR (CKD-EPI)AfAm (>60 ml/min/1.73 sqM) Est GFR (CKD-EPI)NonAf (>60 ml/min/1.73 sqM) Glucose (74-99) mg/dL Plasma Lactic Acid Landry 1.3 (0.7-2.0) mmol/L Calcium (8.4-10.2) mg/dL Magnesium 1.9 (1.6-2.3) mg/dL Total Bilirubin (0.2-1.3) mg/dL AST (14-36) U/L ALT (4-34) U/L Alkaline Phosphatase (38-126) U/L Troponin I (0.000-0.034) ng/mL Total Protein (6.3-8.2) g/dL Albumin (3.5-5.0) g/dL Amylase (30-110) U/L Lipase (23-300) U/L 03/29/19 Range/Units 19:48 WBC (3.8-10.6) k/uL RBC (3.80-5.40) m/uL Hgb (11.4-16.0) gm/dL Hct (34.0-46.0) % MCV (80.0-100.0) fL MCH (25.0-35.0) pg MCHC (31.0-37.0) g/dL RDW (11.5-15.5) % Plt Count (150-450) k/uL Neutrophils % % Lymphocytes % % Monocytes % % Eosinophils % % Basophils % % Neutrophils # (1.3-7.7) k/uL Lymphocytes # (1.0-4.8) k/uL Monocytes # (0-1.0) k/uL Eosinophils # (0-0.7) k/uL Basophils # (0-0.2) k/uL Hypochromasia Poikilocytosis PT (9.0-12.0) sec INR (<1.2) APTT (22.0-30.0) sec Sodium (137-145) mmol/L Potassium (3.5-5.1) mmol/L Chloride (98-107) mmol/L Carbon Dioxide (22-30) mmol/L Anion Gap mmol/L BUN (7-17) mg/dL Creatinine (0.52-1.04) mg/dL Est GFR (CKD-EPI)AfAm (>60 ml/min/1.73 sqM) Est GFR (CKD-EPI)NonAf (>60 ml/min/1.73 sqM) Glucose (74-99) mg/dL Plasma Lactic Acid Landry (0.7-2.0) mmol/L Calcium (8.4-10.2) mg/dL Magnesium (1.6-2.3) mg/dL Total Bilirubin (0.2-1.3) mg/dL AST (14-36) U/L ALT (4-34) U/L Alkaline Phosphatase (38-126) U/L Troponin I 5.120 H* (0.000-0.034) ng/mL Total Protein (6.3-8.2) g/dL Albumin (3.5-5.0) g/dL Amylase (30-110) U/L Lipase (23-300) U/L Disposition <Rg Rahman - Last Filed: 03/29/19 21:04> Is patient prescribed a controlled substance at d/c from ED?: No Time of Disposition: 21:05 <Marco Antonio Olea - Last Filed: 03/29/19 21:06> Clinical Impression: Acute abdomen, Pneumonia, Elevated troponin Disposition: ADMITTED IP TO THIS HOSP Condition: Fair Additional Instructions: Patient will be admitted Referrals: None,Stated [Primary Care Provider] - 1-2 days
--- NOTE | 2019-03-29 19:10 | CT ---
EXAMINATION TYPE: CT abdomen pelvis w con DATE OF EXAM: 03/29/2019 COMPARISON: 03/17/2019 INDICATION: Mid abdominal pain with nausea. DLP: 945.6 mGycm, Automated exposure control for dose reduction was used. CONTRAST: 100 mL of Isovue 300. Study performed without Oral Contrast TECHNIQUE: Axial images were obtained from above the diaphragm to the pubic rami in the axial plane a t 5 mm thick sections. Reconstructed images are reviewed on the computer in the coronal plane. FINDINGS: Free air is present adjacent to the liver under the right diaphragm. Few small collections of air may be near the distal stomach or duodenum. Some fluid is adjacent to the ascending colon with in the paracolic gutter. Limited CT sections are obtained the lung bases. There is a small right pleural effusion with some a djacent compressive atelectasis. Minimal compressive atelectasis is at the left lung base. Coronary a rtery calcification is noted.. CT ABDOMEN: Liver: May be small cysts within the right and left lobes of the liver. Spleen: Normal Pancreas: Normal Adrenal glands: The adrenal glands are normal. Gallbladder: No definite cholelithiasis is evident. Some pericholecystic fluid may be present. Kidneys: No masses are evident. No hydronephrosis is present. No cysts are present. Delayed images were obtained through the kidneys, which remain unremarkable. Aorta: Vascular calcification is within the aorta. Inferior vena cava: There is some flattening inferior vena cava which can be related to the patient's volume status. CT PELVIS: Some ascending colon wall thickening may be present. Study is performed without oral contrast limitin g bowel evaluation. Large fecal bolus is at the level the rectum. Free fluid is noted within the pelv is. Appendix: Not identified Urinary bladder: Nondistended limiting evaluation. Genitourinary structures: Uterus and ovaries are not identified. Osseous structures: No suspicious lytic or sclerotic lesions. IMPRESSIONS: 1. Pneumoperitoneum right upper quadrant. Source is not clearly evident but is suspected be within t he region of the ascending colon and hepatic flexure or possibly duodenum. Report was called to Dr. Tao knox by Dr. Kiran by telephone [id number] hours 03/29/2019 2. Fluid within the right paracolic gutter pelvis. Cholecystic regions as well as adjacent to the arvind er. Small pleural effusion is also present at the right lung base.
[2019-03-29] MEDS ORDERED: metroNIDAZOLE-NS PMX 500 MG in SALINE 1 100ML.BAG IVPB STA (19:22)
[2019-03-29] MEDS ORDERED: LEVOFLOXACIN 750MG-D5W PMX 750 MG in DEXTROSE/WATER 1 150ML.BAG IVPB STA (19:22)
--- NOTE | 2019-03-29 20:56 | P.GSCN ---
History of Present Illness Consult date: 03/29/19 History of present illness: CHIEF COMPLAINT: Abdominal pain HISTORY OF PRESENT ILLNESS: The patient is a 74-year-old female who presents with generalized abdominal pain. Family is at bedside including daughter who gives all history. Patient only moans and groans and minimally verbal. She presents with a complicated history of one week ago, March 17 2 March 22, having sepsis secondary to multiple sacral and leg wounds. Patient has not seen a provider or physician in over 5 years prior to that. She is brought in by her family including daughters and son-in-law. Patient is minimally verbal. All history obtained by the patient's daughter. Patient does give her own consents per daughter. Patient had been on antibiotics for cellulitis of doxyc ycline. Daughter reports patient had been sick for 2 days with epigastric abdominal pain. She had intermittent emesis clear without bile. She had low appetite. She then had acute abdominal pain this morning. At the time of my assessment, she did receive pain medication. She reports her pain is tolerable. Additional workup by emergency room provider including CT of the abdomen and pelvis demonstrated pneumoperitoneum resulting in Gen. surgery consultation. PAST MEDICAL HISTORY: See list. PAST SURGICAL HISTORY: See list. MEDICATIONS: See list. ALLERGIES: See list. SOCIAL HISTORY: See list. FAMILY HISTORY: See list. REVIEW OF ORGAN SYSTEMS: CONSTITUTIONAL: Recent sepsis, within 2 weeks. Past fevers. EYES: No reports trouble with vision. No glasses. HEENT: No difficulties with hearing. No nosebleeds. RESPIRATORY: Recent pneumonia. CARDIOVASCULAR: Presents with active myocardial infarction. EKG within the last 2 weeks demonstrates multiple cardiac abnormalities including past myocardial infarction GASTROINTESTINAL: No reports of blood in stools. Had emesis. GENITOURINARY: Recent urinary tract infection. Currently on antibiotic. Past history of uterine cancer with hysterectomy NEUROLOGICAL: No known numbness or tingling along the distal extremities. No s eizure disorders or headaches. MUSCULOSKELETAL: Has back pain, stiffness or joint arthritis. Past history of back surgery. SKIN: No current skin cancer. No rash. PSYCHIATRIC: No current depression or suicidal thoughts. ENDOCRINE: Denies current thyroid disorders. Denies any blood sugar glucose int olerance. HEME/LYMPHATIC: Denies any lumps and bumps around the neck. No recent deep venous thrombosis. ALLERGY/IMMUNOLOGY: No immunoglobulin therapy. No immune deficiencies. BREAST: Denies current breast lumps, pain or nipple discharge. PHYSICAL EXAM: VITALS: Reviewed CONSTITUTIONAL: Well developed and in no acute distress. EYES: Conjuctivae without sclera icterus. Pupils are equally round and reactive to light. Extraocular movements grossly intact. HEAD, EARS, NOSE, THROAT: Dry buccal mucosa. Head is atraumatic, normocephalic. Hears conversational speech. No nasal drainage. Edentulous NECK: Supple. No JV distention. No thyroidomegaly. RESPIRATORY: Non-labored respirations and equal bilateral excursions. No gross wheezes. CARDIOVASCULAR: Regular rate and rhythm. Palpable 2+ radial pulses. ABDOMEN: Soft. Tender along the epigastrium. Nontender lower abdomen. No rigidity. Has worsening abdominal pain with jarring of the bed LYMPH: No neck lymphadenopathy. No axillary lymphadenopathy. MUSCULOSKELETAL: No clubbing cyanosis. Delayed capillary refill SKIN Poor skin turgor and pale NEUROLOGIC: Cranial nerves I through XII grossly intact. Sensation upper and extremities intact. No focal or lateralizing signs. PSYCH: Flat affect. Alert and oriented to person. Confirms that yesterday was and her birthday with encouragement from her daughter. CLINCAL LABS: Reviewed. WBC 12,000. Troponin elevated over 5 IMAGING: Independently reviewed a chest x-ray without free air underneath the diaphragm. Bilateral lower lobe pneumonia identified with infiltrate. Abdominal x-ray independently reviewed without free air. Diffuse bowel gas pattern. Retained stool of the rectum. CT of the abdomen and pelvis reviewed with localized free air at the liver. Sm all free fluid within the pelvis. No bowel dilation. Diverticulosis identified of the sigmoid colon with moderate retained stool in the rectum. 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 RECORDS: previous old records reviewed. Records from recent hospitalization 2 weeks ago reviewed including CT of the abdomen and pelvis, labs, consultations reviewed. Patient presented last admission with acute cellulitis and wound infections with sepsis presentation. CT at that time unremarkable for free air. Patient had EKG demonstrating prior old infarct including multiple cardiac abnormalities. Troponin was negative. ASSESSMENT: 1. Abnormal computed tomography scan with pneumoperitoneum 2. Epigastric abdominal pain 3. Acute myocardial ischemia 4. Bilateral pneumonia PLAN: 1. She presents with elevated troponins over 5 which is new in the last 2 weeks. She also has moderate-sized pneumonia bilateral. With active pneumonia including active myocardial ischemia, patient presents with very high risk of cardiac arrest during surgery. 2. I did discuss with the family comorbidities including overlap of pneumonia and recent sepsis less than 2 weeks ago that puts her at guarded prognosis. 3. In the interim, I reviewed with the patient and family to discuss with her, her wishes for code status, intubation, surgical options, including nonsurgical options. 4. On exam, patient does have peritoneal irritation whereby surgery is advised although very risky. Patient and family given time to discuss her options. 5. I personally spoke with the emergency room provider of critical care management with her presentation of acute PR, acute abdomen, pneumonia. 6. Surgery team will follow-up with patient's wishes. 7. In the interim, cardiology consultation for acute PR advised. 8. Will likely need pulmonary/critical care consultation. 9. Patient being admitted to the hospitalist team. We'll closely follow. Thank you for this kind consultation. Critical care assessment including coordination of care over 37 minutes Past Medical History Past Medical History: Hyperlipidemia Additional Past Medical History / Comment(s): uterine ca History of Any Multi-Drug Resistant Organisms: None Reported Past Surgical History: Hysterectomy Additional Past Surgical History / Comment(s): cervical fusion Past Anesthesia/Blood Transfusion Reactions: No Reported Reaction Additional Past Anesthesia/Blood Transfusion Reaction / Comm: No history of blood transfusion Past Psychological History: No Psychological Hx Reported Smoking Status: Former smoker Past Alcohol Use History: None Reported Past Drug Use History: None Reported - Past Family History Father Family Medical History: Diabetes Mellitus, Hypertension Sister(s) Family Medical History: Deep Vein Thrombosis (DVT), Hypertension Brother(s) Family Medical History: Deep Vein Thrombosis (DVT) Medications and Allergies Home Medications Medication Instructions Recorded Confirmed Type Aspirin EC [Ecotrin Low Dose] 81 mg PO DAILY 03/17/19 03/29/19 History Naproxen Sodium [Aleve] 440 mg PO DAILY PRN 03/17/19 03/29/19 History Nystatin 100,000 Unit/gm Powd 1 applic TOPICAL TID 03/29/19 03/29/19 History [Mycostatin Powder] Periguard Ointment 1 applic TOPICAL TID@0800,1200,1800 03/29/19 03/29/19 History Allergies Allergy/AdvReac Type Severity Reaction Status Date / Time Penicillins Allergy Rash/Hives Verified 03/17/19 15:16 Surgical - Exam Vital Signs Temp Pulse Resp BP Pulse Ox 98.6 F 80 18 106/58 93 L 03/29/19 15:23 03/29/19 15:23 03/29/19 15:23 03/29/19 15:23 03/29/19 15:23 Results - Labs 03/30/19 03:11 03/30/19 03:11 Abnormal Lab Results - Last 24 Hours (Table) 03/29/19 03/29/19 03/29/19 Range/Units 15:33 15:33 15:33 WBC 12.5 H (3.8-10.6) k/uL Neutrophils # 11.1 H (1.3-7.7) k/uL Lymphocytes # 0.9 L (1.0-4.8) k/uL APTT (22.0-30.0) sec Chloride 113 H (98-107) mmol/L Carbon Dioxide 18 L (22-30) mmol/L BUN 22 H (7-17) mg/dL Glucose 138 H (74-99) mg/dL AST 53 H (14-36) U/L Troponin I 5.250 H* (0.000-0.034) ng/mL Total Protein 5.4 L (6.3-8.2) g/dL Albumin 2.9 L (3.5-5.0) g/dL 03/29/19 03/29/19 Range/Units 17:02 19:48 WBC (3.8-10.6) k/uL Neutrophils # (1.3-7.7) k/uL Lymphocytes # (1.0-4.8) k/uL APTT 20.9 L (22.0-30.0) sec Chloride (98-107) mmol/L Carbon Dioxide (22-30) mmol/L BUN (7-17) mg/dL Glucose (74-99) mg/dL AST (14-36) U/L Troponin I 5.120 H* (0.000-0.034) ng/mL Total Protein (6.3-8.2) g/dL Albumin (3.5-5.0) g/dL Diabetes panel 03/29/19 Range/Units 15:33 Sodium 143 (137-145) mmol/L Potassium 3.6 (3.5-5.1) mmol/L Chloride 113 H (98-107) mmol/L Carbon Dioxide 18 L (22-30) mmol/L BUN 22 H (7-17) mg/dL Creatinine 0.85 (0.52-1.04) mg/dL Glucose 138 H (74-99) mg/dL Calcium 9.6 (8.4-10.2) mg/dL AST 53 H (14-36) U/L ALT 20 (4-34) U/L Alkaline Phosphatase 90 (38-126) U/L Total Protein 5.4 L (6.3-8.2) g/dL Albumin 2.9 L (3.5-5.0) g/dL Calcium panel 03/29/19 Range/Units 15:33 Calcium 9.6 (8.4-10.2) mg/dL Albumin 2.9 L (3.5-5.0) g/dL Pituitary panel 03/29/19 Range/Units 15:33 Sodium 143 (137-145) mmol/L Potassium 3.6 (3.5-5.1) mmol/L Chloride 113 H (98-107) mmol/L Carbon Dioxide 18 L (22-30) mmol/L BUN 22 H (7-17) mg/dL Creatinine 0.85 (0.52-1.04) mg/dL Glucose 138 H (74-99) mg/dL Calcium 9.6 (8.4-10.2) mg/dL Adrenal panel 03/29/19 Range/Units 15:33 Sodium 143 (137-145) mmol/L Potassium 3.6 (3.5-5.1) mmol/L Chloride 113 H (98-107) mmol/L Carbon Dioxide 18 L (22-30) mmol/L BUN 22 H (7-17) mg/dL Creatinine 0.85 (0.52-1.04) mg/dL Glucose 138 H (74-99) mg/dL Calcium 9.6 (8.4-10.2) mg/dL Total Bilirubin 0.7 (0.2-1.3) mg/dL AST 53 H (14-36) U/L ALT 20 (4-34) U/L Alkaline Phosphatase 90 (38-126) U/L Total Protein 5.4 L (6.3-8.2) g/dL Albumin 2.9 L (3.5-5.0) g/dL
[2019-03-29] MEDS ORDERED: NALOXONE 0.4 MG/ML 1 ML VIAL IV PRN (21:01)
[2019-03-29 22:21] LABS: Glucose,Whole Blood 150 mg/dL (75-99)
[2019-03-29] MEDS: SODIUM CHLORIDE 0.9% 1,000 ML IV SCH (23:17)
[2019-03-29] MEDS: HYDROmorphone 0.5 MG/0.5 ML SYRINGE IVP PRN (23:34)
[2019-03-30] MEDS: AZTREONAM 2 GM in SODIUM CHLORIDE 0.9% 100 ML IVPB SCH ×3 (00:17→15:52)
[2019-03-30] MEDS ORDERED: SODIUM CHLORIDE 0.9% 1,000 ML IV ONE ×6 (00:23→06:00)
[2019-03-30] MEDS ORDERED: ONDANSETRON 4 MG/2 ML VIAL IVP PRN (00:32)
[2019-03-30 02:03] LABS: Appearance,Urine Clear (Clear); Bacteria,Urine Occasional /hpf; Bilirubin,Urine Negative (Negative); Blood,Urine Negative (Negative); Budding Yeast,Urine Occasional /hpf; Color,Urine Yellow; Glucose,Urine (UA) Negative (Negative); Ketones,Urine 2+ (Negative); Leukocyte Esterase,Urine Trace (Negative); Mucus,Urine Many /hpf; Nitrite,Urine Negative (Negative); Protein,Urine 1+ (Negative); RBC,Urine 52 /hpf (0-5); Squamous Epithelial Cell,Urine 3 /hpf (0-4); Urobilinogen,Urine <2.0 mg/dL (<2.0); WBC,Urine 12 /hpf (0-5)
[2019-03-30 02:09] LABS: Specific Gravity,Urine >1.050 (1.001-1.035)
--- NOTE | 2019-03-30 02:41 | P.HPIM ---
History of Present Illness H&P Date: 03/29/19 Chief Complaint: abd pain 74 year old female with history of hyperlipidemia, no OP follow up with PCP for over 5 years. patient recently discharged when she was treated for sepsis secondary to cellulititis of the lower back , and discharged to [facility]. she comes in today, due to 2 day history of abd pain, RUQ, with nausea and vomiting non bilious non bloody , patient unable to provide any detailed history , she is minimally verbal, and moans with pain. history obtained from her daughter at bed side. patient daughter denies any bloody bowel movement, denies any history of ulcers. she does report that the patient takes NSAIDS for pain on regular basis . no report of fever, no report of chest pain or trouble breathing, but does report coughing with phlegm and vomiting over the past two days. patient started having decrease urine output and PO intake, and due to worsening pain , she was sent to the ER for evaluation here she was found to have pneumoperitoneum , and suspected perforation for which surgery consulted, and discussed high risk surgery recommendations with the family, who decided to hold off any surgery and to discuss among themselves whether to pursue surgery or not. patient also found to have T wave inversions over lateral leads on the EKG, along with elevated troponins , suspicious for underlying cardiac process, case discussed with Dr. Urbano who agreed to not start heparin due to underlying possible perforated viscous. CXR showed bilateral possible infilterates and consolidation / pleural effusion on right lower lung , along with history of coughing suspicious for pneumonia patient admitted to the ICU for close monitoring Review of Systems ROS unobtainable: due to mental status Past Medical History Past Medical History: Hyperlipidemia Additional Past Medical History / Comment(s): uterine ca History of Any Multi-Drug Resistant Organisms: None Reported Past Surgical History: Hysterectomy Additional Past Surgical History / Comment(s): cervical fusion Past Anesthesia/Blood Transfusion Reactions: No Reported Reaction Additional Past Anesthesia/Blood Transfusion Reaction / Comment(s): No history of blood transfusion Past Psychological History: No Psychological Hx Reported Smoking Status: Former smoker Past Alcohol Use History: None Reported Past Drug Use History: None Reported - Past Family History Father Family Medical History: Diabetes Mellitus, Hypertension Sister(s) Family Medical History: Deep Vein Thrombosis (DVT), Hypertension Brother(s) Family Medical History: Deep Vein Thrombosis (DVT) Medications and Allergies Home Medications Medication Instructions Recorded Confirmed Type Aspirin EC [Ecotrin Low Dose] 81 mg PO DAILY 03/17/19 03/29/19 History Naproxen Sodium [Aleve] 440 mg PO DAILY PRN 03/17/19 03/29/19 History Nystatin 100,000 Unit/gm Powd 1 applic TOPICAL TID 03/29/19 03/29/19 History [Mycostatin Powder] Periguard Ointment 1 applic TOPICAL TID@0800,1200,1800 03/29/19 03/29/19 History Allergies Allergy/AdvReac Type Severity Reaction Status Date / Time Penicillins Allergy Rash/Hives Verified 03/17/19 15:16 Physical Exam Vitals: Vital Signs Temp Pulse Resp BP Pulse Ox 03/29/19 23:00 76 18 90/42 92 L 03/29/19 22:30 98.5 F 96 25 H 105/46 91 L 03/29/19 22:26 80 18 91 L 03/29/19 21:26 71 16 106/46 93 L 03/29/19 20:42 69 16 103/83 92 L 03/29/19 19:49 72 18 107/45 91 L 03/29/19 18:15 65 16 108/94 95 03/29/19 15:30 106/58 94 L 03/29/19 15:26 93 L 03/29/19 15:23 98.6 F 80 18 106/58 93 L Intake and Output 03/29/19 03/29/19 03/30/19 14:59 22:59 06:59 Output Total 0 70 Balance 0 -70 Output: Urine 0 70 Other: Weight 58.967 kg Constitutional: patient looks in pain, she is moaning when stimulated, but otherwise she would sleep. she is minimally verbal only responds to yes and no questions by grimacing and nodding Eyes: Anicteric sclerae, moist conjunctiva, Pupils equal round reactive to light ENMT: NC/AT Oropharynx clear, no erythema, or exudates Neck: Supple, FROM, no masses, or JVD No carotid bruits No thyromegaly Lungs: slightly decrease breath sounds at lung basis, no wheezing or rhonci Clear to percussion Normal respiratory effort, no accessory muscle use Cardiovascular: Heart regular in rate and rhythm, No murmurs, gallops, or rubs No peripheral edema Abdominal: positive guarding, tenderness diffused mainly on the right side. Abdomen not moving with respiration Negative bowel sounds No hepatomegaly, No splenomegaly No palpable mass No abdominal wall hernia noted Skin: Normal temperature, tone, texture, turgor multiple stage III pressure ulcers over lower back involving both buttocks, inner thighs. no induration or drainage Extremities: No digital cyanosis No clubbing Pedal pulses intact and symmetrical Radial pulses intact and symmetrical No calf tenderness Psychiatric: Alert , follows simple commands patient is in pain Neuro Muscles Strength 4/5 in all 4 extremities Sensation to light touch grossly present throughout Cranial nerves II-XII grossly intact No focal sensory deficits Lymphatics: no palpable cervical or supraclavicular , or inguinal lymph nodes trent cath in place, low urine output Results CBC & Chem 7: 03/29/19 15:33 03/29/19 15:33 Labs: Abnormal Lab Results - Last 24 Hours (Table) 03/29/19 03/29/19 03/29/19 Range/Units 15:33 15:33 15:33 WBC 12.5 H (3.8-10.6) k/uL Neutrophils # 11.1 H (1.3-7.7) k/uL Lymphocytes # 0.9 L (1.0-4.8) k/uL APTT (22.0-30.0) sec Chloride 113 H (98-107) mmol/L Carbon Dioxide 18 L (22-30) mmol/L BUN 22 H (7-17) mg/dL Glucose 138 H (74-99) mg/dL POC Glucose (mg/dL) (75-99) mg/dL AST 53 H (14-36) U/L Troponin I 5.250 H* (0.000-0.034) ng/mL Total Protein 5.4 L (6.3-8.2) g/dL Albumin 2.9 L (3.5-5.0) g/dL 03/29/19 03/29/19 03/29/19 Range/Units 17:02 19:48 22:19 WBC (3.8-10.6) k/uL Neutrophils # (1.3-7.7) k/uL Lymphocytes # (1.0-4.8) k/uL APTT 20.9 L (22.0-30.0) sec Chloride (98-107) mmol/L Carbon Dioxide (22-30) mmol/L BUN (7-17) mg/dL Glucose (74-99) mg/dL POC Glucose (mg/dL) 150 H (75-99) mg/dL AST (14-36) U/L Troponin I 5.120 H* (0.000-0.034) ng/mL Total Protein (6.3-8.2) g/dL Albumin (3.5-5.0) g/dL Assessment and Plan Assessment: 74 year old female with history of hyperlipidemia, and recent hospitalization for cellulitis over lower back. patient comes from [facility] due to abd pain of 2 days duration , found to have pneumoperitoneum and general surgery recommending surgery with high risk patient also suspected to have pneumonia. lisbet with oliguria elevated troponin with EKG showing t wave inversion lateral leads, concerning for lateral ischemia guarded prognosis Plan: acute metabolic encephalopathy pneumoperitoneum unknown underlying etiology health care associated pneumonia. lisbet with oliguria elevated troponin with EKG showing t wave inversion lateral leads, concerning for lateral ischemia metabolic acidosis prolonged QT interval decubitus ulcer over the buttocks, present upon admission admission to ICU general surgery following closely with recommendations for surgical exploration , family agreed on pursuing surgery understanding patient is a high risk candidate follow up cultures empiric broad spectrum ABx aggressive IVF hydration supportive care pain control currently not on IV pressors oliguria case discussed with cardiology , no heparin drip for now due to possible perforated viscous and possible surgical intervention cardiac monitoring trend troponins, PPI wound care follow up labs closely ICU care cardiology consultation Preformed a thorough record review from recent hospitalization for cellulitis of the lower back skin Surrogate decision-maker: patient daughter and son CODE STATUS:full code DVT prophylaxis: mechanical Discussed with: Patient, ER, RN Anticipated length of stay > than [address]: [facility] A total of 80 minutes was spent on the care of this complex patient more than 50% of the time was spent in counseling and care coordination.
[2019-03-30] MEDS: HYDROmorphone 0.5 MG/0.5 ML SYRINGE IVP PRN ×3 (02:46→20:30)
[2019-03-30] MEDS: metroNIDAZOLE-NS PMX 500 MG in SALINE 1 100ML.BAG IVPB SCH ×4 (02:49→20:32)
[2019-03-30 03:21] LABS: HCT 31.8 % (34.0-46.0); HGB 10.3 gm/dL (11.4-16.0); Hypochromasia Moderate; MCH 31.9 pg (25.0-35.0); MCHC 32.3 g/dL (31.0-37.0); MCV 98.7 fL (80.0-100.0); Macrocytosis Slight; Mean Platelet Volume 9.9; Platelet Count 176 k/uL (150-450); Poikilocytosis Slight; RBC 3.22 m/uL (3.80-5.40); RDW 14.9 % (11.5-15.5)
[2019-03-30 03:30] LABS: Albumin 1.9 g/dL (3.5-5.0); Potassium 3.5 mmol/L (3.5-5.1); Total Bilirubin 0.5 mg/dL (0.2-1.3); Total Protein 3.8 g/dL (6.3-8.2)
[2019-03-30 03:48] LABS: Band Neutrophils % 26 %; Lymphocytes # (M) 0.21 k/uL (1.0-4.8); Metamyelocytes # (M) 0.14 k/uL (0); Metamyelocytes % 2 %; Monocytes # (M) 0.63 k/uL (0-1.0); Neutrophils % (M) 60 %; Nucleated Red Blood Cells 0 /100 WBC (0-0); Total Cells Counted 100
--- NOTE | 2019-03-30 04:28 | P.PN ---
Subjective Progress Note Date: 03/30/19 CHIEF COMPLAINT: Abdominal pain HISTORY OF PRESENT ILLNESS: The patient is a 74-year-old female who presents with generalized abdominal pain with pneumoperitoneum. I was notified by ICU nurse that family and hospitalist agreed for surgery now. I came in. Patient currently being resuscitated with 3+ liters of fluid with minimal urine output. She continues to grow hormone regarding her abdominal pain. Nurse is giving Dilaudid as needed for pain. REVIEW ORGAN SYSTEMS: No fevers or chills. No productive sputum. Not currently on vasopressors. PHYSICAL EXAM: VITALS: Reviewed CONSTITUTIONAL: Well developed and in no acute distress. EYES: Conjuctivae without sclera icterus. Pupils are equally round and reactive to light. Extraocular movements grossly intact. HEAD, EARS, NOSE, THROAT: Dry buccal mucosa. Head is atraumatic, normocephalic. Hears conversational speech. No nasal drainage. Edentulous RESPIRATORY: Non-labored respirations and equal bilateral excursions. No gross wheezes. CARDIOVASCULAR: Regular rate and rhythm. Palpable 2+ radial pulses. ABDOMEN: Soft, diffusely tender. Well-healed right lower quadrant transverse incision. Well healed lower abdominal incision without hernias. MUSCULOSKELETAL: No clubbing cyanosis. SKIN: Pale, warm. NEUROLOGIC: Cranial nerves I through XII grossly intact. No focal or lateralizing signs. PSYCH: Flat affect. Minimally verbal. CLINCAL LABS: Reviewed. WBC 12,000 down to 7000. No left shift. Troponin still elevated over 5. Creatinine elevated from 0.8-1.0 ASSESSMENT: 1. Abnormal computed tomography scan with pneumoperitoneum 2. Epigastric abdominal pain 3. Acute myocardial ischemia 4. Bilateral pneumonia PLAN: 1. I contacted Dr. Levin to review care plan including CODE status. She is still FULL CODE. 2. I called and spoke to daughter, Nieves Cabrera regarding her understanding of care plan. Family agrees for surgery. 3. Consent for exploratory laparotomy and blood reviewed with patient. 4. Type and screen for blood. 5. Patient very high risk for perioperative morbidity with guarded prognosis Critical care assessment including coordination of care over 32 minutes Objective - Vital Signs Vital signs: Vital Signs Temp 98.4 F 03/30/19 00:00 Pulse 61 03/30/19 03:00 Resp 18 03/30/19 03:00 BP 100/43 03/30/19 03:00 Pulse Ox 90 L 03/30/19 03:00 Intake & Output 03/29/19 03/29/19 03/30/19 06:59 18:59 06:59 Intake Total 1499 Output Total 135 Balance 1364 Weight 58.967 kg 62.4 kg Intake: IV 1499 Aztreonam 2 gm In Sodium 100 Chloride 0.9% 100 ml @ 100 mls/hr IVPB Q8HR [facility] Rx#:[id number] Levofloxacin 750Mg-D5w 100 Pmx 750 mg In Dextrose/ Water 1 150ml.bag @ 100 mls/hr IVPB [facility] Rx#: [id number] Sodium Chloride 0.9% 1, 300 000 ml @ 120 mls/hr IV . Q8H20M [facility] Rx#:[id number] Sodium Chloride 0.9% 1, 999 000 ml @ 999 mls/hr IV . Q1H1M [facility] Rx#:[id number] Output: Urine 135 - Labs CBC & Chem 7: 03/30/19 03:11 03/30/19 03:11 Labs: Abnormal Lab Results - Last 24 Hours (Table) 03/29/19 03/29/19 03/29/19 Range/Units 15:33 15:33 15:33 WBC 12.5 H (3.8-10.6) k/uL RBC (3.80-5.40) m/uL Hgb (11.4-16.0) gm/dL Hct (34.0-46.0) % Neutrophils # 11.1 H (1.3-7.7) k/uL Lymphocytes # 0.9 L (1.0-4.8) k/uL Lymphocytes # (Manual) (1.0-4.8) k/uL Metamyelocytes # (Man) (0) k/uL APTT (22.0-30.0) sec Chloride 113 H (98-107) mmol/L Carbon Dioxide 18 L (22-30) mmol/L BUN 22 H (7-17) mg/dL Glucose 138 H (74-99) mg/dL POC Glucose (mg/dL) (75-99) mg/dL Calcium (8.4-10.2) mg/dL AST 53 H (14-36) U/L Troponin I 5.250 H* (0.000-0.034) ng/mL Total Protein 5.4 L (6.3-8.2) g/dL Albumin 2.9 L (3.5-5.0) g/dL Ur Specific [place] (1.001-1.035) Urine Protein (Negative) Urine Ketones (Negative) Ur Leukocyte Esterase (Negative) Urine RBC (0-5) /hpf Urine WBC (0-5) /hpf Urine Bacteria (None) /hpf Urine Mucus (None) /hpf Urine Yeast (Budding) (None) /hpf 03/29/19 03/29/19 03/29/19 Range/Units 15:57 17:02 19:48 WBC (3.8-10.6) k/uL RBC (3.80-5.40) m/uL Hgb (11.4-16.0) gm/dL Hct (34.0-46.0) % Neutrophils # (1.3-7.7) k/uL Lymphocytes # (1.0-4.8) k/uL Lymphocytes # (Manual) (1.0-4.8) k/uL Metamyelocytes # (Man) (0) k/uL APTT 20.9 L (22.0-30.0) sec Chloride (98-107) mmol/L Carbon Dioxide (22-30) mmol/L BUN (7-17) mg/dL Glucose (74-99) mg/dL POC Glucose (mg/dL) (75-99) mg/dL Calcium (8.4-10.2) mg/dL AST (14-36) U/L Troponin I 5.120 H* (0.000-0.034) ng/mL Total Protein (6.3-8.2) g/dL Albumin (3.5-5.0) g/dL Ur Specific [place] >1.050 H (1.001-1.035) Urine Protein 1+ H (Negative) Urine Ketones 2+ H (Negative) Ur Leukocyte Esterase Trace H (Negative) Urine RBC 52 H (0-5) /hpf Urine WBC 12 H (0-5) /hpf Urine Bacteria Occasional H (None) /hpf Urine Mucus Many H (None) /hpf Urine Yeast (Budding) Occasional H (None) /hpf 03/29/19 03/30/19 03/30/19 Range/Units 22:19 03:10 03:11 WBC (3.8-10.6) k/uL RBC 3.22 L (3.80-5.40) m/uL Hgb 10.3 L (11.4-16.0) gm/dL Hct 31.8 L (34.0-46.0) % Neutrophils # (1.3-7.7) k/uL Lymphocytes # (1.0-4.8) k/uL Lymphocytes # (Manual) 0.21 L (1.0-4.8) k/uL Metamyelocytes # (Man) 0.14 H (0) k/uL APTT (22.0-30.0) sec Chloride (98-107) mmol/L Carbon Dioxide (22-30) mmol/L BUN (7-17) mg/dL Glucose (74-99) mg/dL POC Glucose (mg/dL) 150 H (75-99) mg/dL Calcium (8.4-10.2) mg/dL AST (14-36) U/L Troponin I 3.650 H* (0.000-0.034) ng/mL Total Protein (6.3-8.2) g/dL Albumin (3.5-5.0) g/dL Ur Specific [place] (1.001-1.035) Urine Protein (Negative) Urine Ketones (Negative) Ur Leukocyte Esterase (Negative) Urine RBC (0-5) /hpf Urine WBC (0-5) /hpf Urine Bacteria (None) /hpf Urine Mucus (None) /hpf Urine Yeast (Budding) (None) /hpf 03/30/19 Range/Units 03:11 WBC (3.8-10.6) k/uL RBC (3.80-5.40) m/uL Hgb (11.4-16.0) gm/dL Hct (34.0-46.0) % Neutrophils # (1.3-7.7) k/uL Lymphocytes # (1.0-4.8) k/uL Lymphocytes # (Manual) (1.0-4.8) k/uL Metamyelocytes # (Man) (0) k/uL APTT (22.0-30.0) sec Chloride 119 H (98-107) mmol/L Carbon Dioxide 19 L (22-30) mmol/L BUN 25 H (7-17) mg/dL Glucose 123 H (74-99) mg/dL POC Glucose (mg/dL) (75-99) mg/dL Calcium 8.0 L (8.4-10.2) mg/dL AST (14-36) U/L Troponin I (0.000-0.034) ng/mL Total Protein 3.8 L (6.3-8.2) g/dL Albumin 1.9 L (3.5-5.0) g/dL Ur Specific [place] (1.001-1.035) Urine Protein (Negative) Urine Ketones (Negative) Ur Leukocyte Esterase (Negative) Urine RBC (0-5) /hpf Urine WBC (0-5) /hpf Urine Bacteria (None) /hpf Urine Mucus (None) /hpf Urine Yeast (Budding) (None) /hpf
[2019-03-30] MEDS ORDERED: ePHEDrine SULFATE/0.9% NACL/PF 50 MG/5 ML SYRINGE IV ONE (05:34)
[2019-03-30] MEDS ORDERED: PROPOFOL 10 MG/ML 20 ML VIAL IV ONE (05:34)
[2019-03-30] MEDS ORDERED: NEOSTIGMINE 1 MG/ML 10 ML VIAL ONE (05:34)
[2019-03-30] MEDS ORDERED: MIDAZOLAM 2 MG/2 ML VIAL ONE (05:34)
[2019-03-30] MEDS ORDERED: PHENYLEPHRINE-0.9% NACL SYG 1 MG/10 ML SYRINGE ONE (05:34)
[2019-03-30] MEDS ORDERED: ROCURONIUM BROMIDE 10 MG/ML 10 ML VIAL IV ONE (05:34)
[2019-03-30] MEDS ORDERED: GLYCOPYRROLATE 0.2 MG/ML 2 ML VIAL ONE (05:34)
[2019-03-30] MEDS ORDERED: fentaNYL (PF) 50 MCG/ML 2 ML AMP ONE (05:34)
[2019-03-30] MEDS ORDERED: LACTATED RINGERS 1,000 ML IV ONE ×4 (06:53)
--- NOTE | 2019-03-30 07:55 | P.OP ---
Date of Procedure: 03/30/19 Description of Procedure: SURGEON: BRENDA CUEVAS MD PREOPERATIVE DIAGNOSES: 1. Pneumoperitoneum 2. Peritonitis, epigastrium 3. Pre-existing bilateral pneumonia 4. Myocardial ischemia, acute 5. Previous history of sepsis 6. Previous history of uterine cancer status post hysterectomy 7. Diffuse osteoarthritis 8. Severe dehydration with orthostatic hypotension and oliguria 9. Hyperlipidemia 10. Pre-existing anemia POSTOPERATIVE DIAGNOSES: 1. Pneumoperitoneum due to perforated anterior duodenal ulcer 2. Peritonitis, epigastrium 3. Pre-existing bilateral pneumonia 4. Myocardial ischemia, acute 5. Previous history of sepsis 6. Previous history of uterine cancer status post hysterectomy 7. Diffuse osteoarthritis 8. Severe dehydration with orthostatic hypotension and oliguria 9. Hyperlipidemia 10. Pre-existing anemia OPERATION: 1. Exploratory laparotomy with oversew of duodenal ulcer and omental patch 2. Peritoneal lavage 3 L normal saline 3. Placement of two (2) SHAUNA drains #19, upper drain to stomach, lower drain to pelvis 4. Placement of PREVENA incisional wound VAC system, 20 cm Anesthesia: GETA, local Estimated Blood Loss (ml): 25 Pathology: Peritoneal cultures Condition: stable Disposition: ICU Operative Findings: 1. Perforated anterior second portion duodenal ulcer, 8 mm without bleeding 2. Localized peritonitis right upper quadrant 3. Oversew of duodenal ulcer with 3-0 silk and omental patch with 3-0 Vicryl 4. Upper drain anterior to duodenal patch repair 5. Lower drain to pelvis 6. Nasogastric tube positioned in distal stomach 7. No peritoneal studding with history of uterine cancer 8. Colon including small bowel otherwise unremarkable CARE PLAN: Family given photos of intraoperative findings and updated with level of care including need for nothing by mouth status 7 days with TPN, NG tube placement, upper GI in 48-72 hours, placement of drains, anticipated length of stay in the hospital 1 week, antifungal including antibiotic coverage, treatment of pneumonia including cardiac care INDICATIONS: The patient is a 74-year-old female who presented 2 days after acute onset abdominal pain. CT of the abdomen pelvis demonstrated perforated viscus. Emergent surgical intervention was advised with exploratory laparotomy. Benefits and risks of the procedures were discussed including high morbidity and mortality. Informed consent was obtained. DESCRIPTION: The patient was brought to the operating room after resuscitation. After general induction, the abdomen was prepped and draped in standard sterile fashion. Ioban draping was also placed. Prior to incision, a timeout protocol was confirmed with surgical team regarding patient's name including procedures to be performed. Preoperative medications were confirmed. A #10 blade was used to enter along the epigastrium and extended down to the pubis. Carefully the abdomen was entered using electro- Bovie cautery. Immediate right upper quadrant purulence was aspirated from the abdomen over 100 mL. Fibrinous exudate was found localized at the right upper abdomen. To further explore the abdomen, the abdomen was irrigated with 3 L of warm normal saline solution until the aspirant was clear. Aerobic and anaerobic cultures were obtained of the peritoneal fluid prior to irrigation and sent for cultures. The small bowel was unremarkable. The colon was unremarkable. The gallbladder was distended. Next, along the anterior surface of the 2nd portion of the duodenum, 8 mm defect was found with enteric content emanating from the perforation. No signs of peritoneal studding was identified or sign of malignancy. The ulcer was oversewn using 3-0 Silk with imbrication. A lesser omental patch was placed to reinforce the closure using 3-0 Polysorb. A #19 SHAUNA drain was placed anterior to the repair of the duodenum. The SHAUNA drain exited via the left upper quadrant and sewn in using 2-0 nylon. A separate drain was place into the pelvis and exited via the left lower quadrant and also tacked using 2-0 nylon. SHAUNA bulbs were attached to negative suction. Hemostasis was excellent throughout the case. The abdomen was closed using double stranded 0 PDS. The skin was cleansed using dilute hydrogen peroxide. A 20-cm PREVENA incisional wound VAC dressing was placed with intact seal. At the end of the procedure, needle, sponge, and instrument count had been verified correct by the neurosurgical nurse practitioner. The patient was sent to the postanesthesia care unit, extubated and in stable condition.
[2019-03-30] MEDS: HYDROmorphone 1 MG/ML 1 ML SYRINGE IVP ONE ×3 (08:00→08:26)
--- NOTE | 2019-03-30 08:10 | XR ---
EXAMINATION TYPE: XR chest 1V DATE OF EXAM: 03/30/2019 COMPARISON: 03/29/2019 HISTORY: 74-year-old female with pneumonia TECHNIQUE: Single frontal view of the chest is obtained. FINDINGS: Heart borderline enlarged. Interstitial densities and focal bibasilar opacities persist. IMPRESSION: 1. Patchy bibasilar infiltrates could represent aspiration or infectious pneumonitis. 2. Background interstitial densities are similar.
[2019-03-30] MEDS ORDERED: PANTOPRAZOLE 40 MG/10 ML VIAL IV SCH (09:00)
[2019-03-30] MEDS ORDERED: ENOXAPARIN 30 MG/0.3 ML SYRINGE SQ SCH (09:00)
[2019-03-30] MEDS: SODIUM CHLORIDE 0.9% 1,000 ML IV SCH ×2 (09:00→15:53)
[2019-03-30] MEDS: FLUCONAZOLE IN NACL,ISO-OSM 200 MG in SALINE 1 100ML.BAG IVPB SCH (09:00)
[2019-03-30] MEDS: PANTOPRAZOLE 40 MG/10 ML VIAL IV SCH ×2 (09:05→21:45)
[2019-03-30] MEDS: PERIGUARD TOPICAL SCH ×3 (09:05→17:24)
[2019-03-30] MEDS ORDERED: IPRATROPIUM-ALBUTEROL 3 ML NEB INHALATION PRN (10:45)
--- NOTE | 2019-03-30 10:47 | P.CONS ---
History of Present Illness - Reason for Consult Consult date: 03/30/19 Perforated duodenal ulcer antibiotic recommendation Requesting physician: Indy Sosa - Chief Complaint Abdominal pain 2 days - History of Present Illness Patient is a 74 year old female resident of a local detention the patient was brought into the ER last night by EMS with a chief complaints of abdominal pain apparently the patient did have nausea and multiple episodes of vomiting for the past 2 days now K history of any hematemesis there was no h istory of any fever or chills on arrival to the ER patient to [facility] x-ray was no acute process, CT of abdominal pelvis that shows pneumoperitoneum right upper quadrant patient was subsequently evaluated by the surgery she was taken to the OR early this morning patient is status post laparotomy noticed to have perforated anterior duodenal ulcer the patient is status post over COPD also with omental patch and peritoneal lavage patient subsequently has been admitted to the ICU infection disease has been consulted for management of antibiotic because of her ALLERGIES most information has been obtained from review of the chart and talking to nursing staff as the patient is currently mowing and did not answer any questions the patient is currently hematologic stable not requiring any pressor support per the RN, RN also mentioned patient having wound to the left thigh in the sacral area is not very clear for how long she has these wound and unfortunately patient did not provide any history regarding any pain or discomfort associated with these wound Review of Systems Positive points has been mentioned in HPI complete review could not be obtained because of his underlying mental status Past Medical History Past Medical History: Hyperlipidemia Additional Past Medical History / Comment(s): uterine ca History of Any Multi-Drug Resistant Organisms: None Reported Past Surgical History: Hysterectomy Additional Past Surgical History / Comment(s): cervical fusion Past Anesthesia/Blood Transfusion Reactions: No Reported Reaction Additional Past Anesthesia/Blood Transfusion Reaction / Comm: No history of blood transfusion Past Psychological History: No Psychological Hx Reported Smoking Status: Former smoker Past Alcohol Use History: None Reported Past Drug Use History: None Reported - Past Family History Father Family Medical History: Diabetes Mellitus, Hypertension Sister(s) Family Medical History: Deep Vein Thrombosis (DVT), Hypertension Brother(s) Family Medical History: Deep Vein Thrombosis (DVT) Medications and Allergies Home Medications Medication Instructions Recorded Confirmed Type Aspirin EC [Ecotrin Low Dose] 81 mg PO DAILY 03/17/19 03/29/19 History Naproxen Sodium [Aleve] 440 mg PO DAILY PRN 03/17/19 03/29/19 History Nystatin 100,000 Unit/gm Powd 1 applic TOPICAL TID 03/29/19 03/29/19 History [Mycostatin Powder] Periguard Ointment 1 applic TOPICAL TID@0800,1200,1800 03/29/19 03/29/19 History Allergies Allergy/AdvReac Type Severity Reaction Status Date / Time Penicillins Allergy Rash/Hives Verified 03/17/19 15:16 Physical Exam Vitals: Vital Signs Temp Pulse Pulse Resp BP BP Pulse Ox 03/30/19 08:25 63 18 111/47 92 L 03/30/19 08:10 60 18 102/46 92 L 03/30/19 07:55 67 18 99/44 89 L 03/30/19 07:41 96.8 F L 106 H 14 100/47 93 L 03/30/19 05:30 77 17 91/36 90 L 03/30/19 05:00 56 L 16 99/45 94 L 03/30/19 04:30 76 12 92/38 89 L 03/30/19 04:00 98.5 F 57 L 16 89/39 94 L 03/30/19 03:30 58 L 12 92/39 93 L 03/30/19 03:00 61 18 100/43 90 L 03/30/19 02:30 63 15 94/60 92 L 03/30/19 02:00 61 14 94/42 92 L 03/30/19 01:30 61 14 92/58 93 L 03/30/19 01:00 66 21 106/48 95 03/30/19 00:30 81 24 86/46 90 L 03/30/19 00:00 98.4 F 70 17 103/45 94 L 03/29/19 23:30 75 21 90/42 93 L 03/29/19 23:20 73 18 90/42 91 L 03/29/19 23:00 76 18 90/42 92 L 03/29/19 22:30 98.5 F 96 25 H 105/46 91 L 03/29/19 22:26 80 18 91 L 03/29/19 21:26 71 16 106/46 93 L 03/29/19 21:24 98.5 F 03/29/19 20:42 69 16 103/83 92 L 03/29/19 19:49 72 18 107/45 91 L 03/29/19 18:15 65 16 108/94 95 03/29/19 15:30 106/58 94 L 03/29/19 15:26 93 L 03/29/19 15:23 98.6 F 80 18 106/58 93 L Intake and Output 03/29/19 03/30/19 03/30/19 22:59 06:59 14:59 Intake Total 6209 350 Output Total 0 205 100 Balance 0 6004 250 Intake: IV 6209 350 Aztreonam 2 gm In Sodium 100 Chloride 0.9% 100 ml @ 100 mls/hr IVPB Q8HR [facility] Rx#:[id number] Levofloxacin 750Mg-D5w 200 Pmx 750 mg In Dextrose/ Water 1 150ml.bag @ 100 mls/hr IVPB [facility]CE [facility] Rx#: [id number] Sodium Chloride 0.9% 1, 660 000 ml @ 120 mls/hr IV . Q8H20M [facility] Rx#:[id number] Sodium Chloride 0.9% 1, 1999 000 ml @ 999 mls/hr IV . Q1H1M [facility] Rx#:[id number] Output: Urine 0 180 100 Estimated Blood Loss 25 Other: Voiding Method Indwelling Catheter Weight 62.4 kg 66.3 kg GENERAL DESCRIPTION: Elderly female lying in bed, no distress. No tachypnea or accessory muscle of respiration use. HEENT: Shows Pallor , no scleral icterus. Oral mucous membrane is dry. No pharyngeal erythema or thrush NECK: Trachea central, no thyromegaly. LUNGS: Unlabored breathing. Decreased breath sound at the base. No wheeze or crackle. HEART: S1, S2, regular rate and rhythm. No loud murmur ABDOMEN: Soft, mild upper quadrant tenderness , no guarding or rigidity, no organomegaly EXTREMITIES: No edema of feet. SKIN: No rash, no masses palpable. Left upper thigh in the back area did have some superficial ulceration no slough tissue or surrounding redness NEUROLOGICAL: The patient is lethargic and orientation could not be determined Results CBC & Chem 7: 03/30/19 03:11 03/30/19 03:11 Labs: Abnormal Lab Results - Last 24 Hours (Table) 03/29/19 03/29/19 03/29/19 Range/Units 15:33 15:33 15:33 WBC 12.5 H (3.8-10.6) k/uL RBC (3.80-5.40) m/uL Hgb (11.4-16.0) gm/dL Hct (34.0-46.0) % Neutrophils # 11.1 H (1.3-7.7) k/uL Lymphocytes # 0.9 L (1.0-4.8) k/uL Lymphocytes # (Manual) (1.0-4.8) k/uL Metamyelocytes # (Man) (0) k/uL APTT (22.0-30.0) sec Chloride 113 H (98-107) mmol/L Carbon Dioxide 18 L (22-30) mmol/L BUN 22 H (7-17) mg/dL Glucose 138 H (74-99) mg/dL POC Glucose (mg/dL) (75-99) mg/dL Calcium (8.4-10.2) mg/dL AST 53 H (14-36) U/L Troponin I 5.250 H* (0.000-0.034) ng/mL Total Protein 5.4 L (6.3-8.2) g/dL Albumin 2.9 L (3.5-5.0) g/dL Ur Specific Allen (1.001-1.035) Urine Protein (Negative) Urine Ketones (Negative) Ur Leukocyte Esterase (Negative) Urine RBC (0-5) /hpf Urine WBC (0-5) /hpf Urine Bacteria (None) /hpf Urine Mucus (None) /hpf Urine Yeast (Budding) (None) /hpf 03/29/19 03/29/19 03/29/19 Range/Units 15:57 17:02 19:48 WBC (3.8-10.6) k/uL RBC (3.80-5.40) m/uL Hgb (11.4-16.0) gm/dL Hct (34.0-46.0) % Neutrophils # (1.3-7.7) k/uL Lymphocytes # (1.0-4.8) k/uL Lymphocytes # (Manual) (1.0-4.8) k/uL Metamyelocytes # (Man) (0) k/uL APTT 20.9 L (22.0-30.0) sec Chloride (98-107) mmol/L Carbon Dioxide (22-30) mmol/L BUN (7-17) mg/dL Glucose (74-99) mg/dL POC Glucose (mg/dL) (75-99) mg/dL Calcium (8.4-10.2) mg/dL AST (14-36) U/L Troponin I 5.120 H* (0.000-0.034) ng/mL Total Protein (6.3-8.2) g/dL Albumin (3.5-5.0) g/dL Ur Specific Allen >1.050 H (1.001-1.035) Urine Protein 1+ H (Negative) Urine Ketones 2+ H (Negative) Ur Leukocyte Esterase Trace H (Negative) Urine RBC 52 H (0-5) /hpf Urine WBC 12 H (0-5) /hpf Urine Bacteria Occasional H (None) /hpf Urine Mucus Many H (None) /hpf Urine Yeast (Budding) Occasional H (None) /hpf 03/29/19 03/30/19 03/30/19 Range/Units 22:19 03:10 03:11 WBC (3.8-10.6) k/uL RBC 3.22 L (3.80-5.40) m/uL Hgb 10.3 L (11.4-16.0) gm/dL Hct 31.8 L (34.0-46.0) % Neutrophils # (1.3-7.7) k/uL Lymphocytes # (1.0-4.8) k/uL Lymphocytes # (Manual) 0.21 L (1.0-4.8) k/uL Metamyelocytes # (Man) 0.14 H (0) k/uL APTT (22.0-30.0) sec Chloride (98-107) mmol/L Carbon Dioxide (22-30) mmol/L BUN (7-17) mg/dL Glucose (74-99) mg/dL POC Glucose (mg/dL) 150 H (75-99) mg/dL Calcium (8.4-10.2) mg/dL AST (14-36) U/L Troponin I 3.650 H* (0.000-0.034) ng/mL Total Protein (6.3-8.2) g/dL Albumin (3.5-5.0) g/dL Ur Specific Allen (1.001-1.035) Urine Protein (Negative) Urine Ketones (Negative) Ur Leukocyte Esterase (Negative) Urine RBC (0-5) /hpf Urine WBC (0-5) /hpf Urine Bacteria (None) /hpf Urine Mucus (None) /hpf Urine Yeast (Budding) (None) /hpf 03/30/19 Range/Units 03:11 WBC (3.8-10.6) k/uL RBC (3.80-5.40) m/uL Hgb (11.4-16.0) gm/dL Hct (34.0-46.0) % Neutrophils # (1.3-7.7) k/uL Lymphocytes # (1.0-4.8) k/uL Lymphocytes # (Manual) (1.0-4.8) k/uL Metamyelocytes # (Man) (0) k/uL APTT (22.0-30.0) sec Chloride 119 H (98-107) mmol/L Carbon Dioxide 19 L (22-30) mmol/L BUN 25 H (7-17) mg/dL Glucose 123 H (74-99) mg/dL POC Glucose (mg/dL) (75-99) mg/dL Calcium 8.0 L (8.4-10.2) mg/dL AST (14-36) U/L Troponin I (0.000-0.034) ng/mL Total Protein 3.8 L (6.3-8.2) g/dL Albumin 1.9 L (3.5-5.0) g/dL Ur Specific Allen (1.001-1.035) Urine Protein (Negative) Urine Ketones (Negative) Ur Leukocyte Esterase (Negative) Urine RBC (0-5) /hpf Urine WBC (0-5) /hpf Urine Bacteria (None) /hpf Urine Mucus (None) /hpf Urine Yeast (Budding) (None) /hpf Microbiology - Last 24 Hours (Table) 03/30/19 06:21 Anaerobic Culture - Preliminary Peritoneal Fluid 03/29/19 15:57 Urine Culture - Preliminary Urine,Clean Catch 03/30/19 06:21 Wound Culture - Preliminary Other - Other Assessment and Plan Assessment: 1-patient admitted to the hospital with abdominal pain nausea and vomiting of 2 days' duration in this patient noticed to have a perforated duodenal ulcer status post laparotomy and operative repair of the same will need to cover for enteric gram-negative and yeast with a likely pathogen responsible for her bacterial peritonitis after peptic ulcer perforation 2-left upper thigh and sacral area superficial ulceration but no cellulitis 3-penicillin ALLERGY that will limit of antibiotic safe to use (1) Perforated duodenal ulcer Current Visit: Yes Status: Acute Code(s): K26.5 - CHRONIC OR UNSPECIFIED DUODENAL ULCER WITH PERFORATION SNOMED Code(s): 03807248 (2) Pneumoperitoneum Current Visit: Yes Status: Acute Code(s): K66.8 - OTHER SPECIFIED DISORDERS OF PERITONEUM SNOMED Code(s): 61566290 Plan: 1-patient will be covered with Azactam 2 g every 8 Flagyl 500 every 8 and left second 200 daily discontinue her Levaquin 2-calmoseptine lotion to the left thigh and sacral area and keep the area off the pressure We will follow on clinical condition and cultures to further adjust medication if needed Thank you for this consultation will follow this patient with you Time with Patient: Greater than 30
--- NOTE | 2019-03-30 11:16 | P.CRDCN ---
History of Present Illness Consult date: 03/30/19 Reason for Consult (text): Lateral ischemic change in EKG History of present illness: This is a 74-year-old female with history of hyperlipidemia. 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 Patient was apparently recently hospitalized for sepsis secondary to cellulitis of the lower back and discharged to rehab. Patient presented to the hospital due to abdominal pain in the right upper quadrant with nausea and vomiting. Apparently no bloody emesis or stools. No reported chest pain or difficulty breathing. Patient does have occasional cough with phlegm production. She has also had decreased oral intake. Patient was found to have pneumoperitoneum and suspected perforation. She is seen and followed by general surgery and infectious disease. Chest ray showed bilateral possible infiltrates consolidation, pleural effusion on the right lower lung. Patient's initial EKG had T-wave inversions over the lateral leads and elevated troponins suspicious for acute coronary syndrome. Heparin drip was not initiating due to concern for perforated ulcer. Patient has undergone exploratory laparotomy found to have perforated anterior duodenal ulcer and peritonitis. Antibiotics being managed by Dr. Mantilla. The patient is seen today in the intensive care unit. WBC initially 12.5-7.0, hemoglobin 10.3, CO2 19, BUN 35 and creatinine 1.00. Troponins 5.250, 5.120, 3.650. Chest x-ray this morning reveals infiltrate, aspiration or infectious pneumonitis. EKG reveals a sinus rhythm with anterior lateral ST changes suggestive of ischemia with no acute ST elevation. Review Of Systems: Unable to be obtained due to patient's mental status Gen: This is a 74-year-old female. Patient is resting in the ICU bed. Patient is moaning. Temperature 96.8, heart rate 63, blood pressure 111/47, pulse ox 90 2. percent o n 6 L nasal cannula HEENT: Head is atraumatic, normocephalic. Pupils equal, round. Sclerae is anicte jd. Oral mucous membranes are moist. NG tube in place. NECK: No JVD. No lymphadenopathy. LUNGS: Clear to auscultation. No wheezes or rhonchi. No intercostal retractions. HEART: Regular rate and rhythm. No murmur. ABDOMEN: Soft. Abdominal binder in place. Wound VAC is in place for vertical wound, 2 SHAUNA drains. Gordon catheter draining shari urine. EXTREMITIES: No pedal edema. Dorsalis pedis +1 bilaterally. NEUROLOGICAL: Patient is awake, moaning, patient unable to follow directions. No focal neural deficits. Assessment: Acute non-ST elevated myocardial infarction Pneumoperitoneum due to perforated anterior duodenal ulcer, peritonitis Bilateral pneumonia Previous history of sepsis Previous history of uterine cancer status post hysterectomy Diffuse osteoarthritis Severe dehydration with orthostatic hypotension and oliguria Hyperlipidemia Chronic anemia Plan: Obtain 2-D echocardiogram and Doppler study to assess cardiac structure and function Patient will be started on heparin drip per protocol if cleared by general surgery Start aspirin 81 mg daily, Lopressor 25 mg twice daily, Lipitor 40 mg daily once patient is able to take oral medications. Patient is currently strict nothing by mouth. Continue Azactam and Diflucan per Dr. Mantilla Continue current wound care Further recommendations to follow based upon clinical course Nurse practitioner note has been reviewed, I agree with documented findings and plan of care. Patient was seen and examined. Past Medical History Past Medical History: Hyperlipidemia Additional Past Medical History / Comment(s): uterine ca History of Any Multi-Drug Resistant Organisms: None Reported Past Surgical History: Hysterectomy Additional Past Surgical History / Comment(s): cervical fusion Past Anesthesia/Blood Transfusion Reactions: No Reported Reaction Additional Past Anesthesia/Blood Transfusion Reaction / Comment(s): No history of blood transfusion Past Psychological History: No Psychological Hx Reported Smoking Status: Former smoker Past Alcohol Use History: None Reported Past Drug Use History: None Reported - Past Family History Father Family Medical History: Diabetes Mellitus, Hypertension Sister(s) Family Medical History: Deep Vein Thrombosis (DVT), Hypertension Brother(s) Family Medical History: Deep Vein Thrombosis (DVT) Medications and Allergies Home Medications Medication Instructions Recorded Confirmed Type Aspirin EC [Ecotrin Low Dose] 81 mg PO DAILY 03/17/19 03/29/19 History Naproxen Sodium [Aleve] 440 mg PO DAILY PRN 03/17/19 03/29/19 History Nystatin 100,000 Unit/gm Powd 1 applic TOPICAL TID 03/29/19 03/29/19 History [Mycostatin Powder] Periguard Ointment 1 applic TOPICAL TID@0800,1200,1800 03/29/19 03/29/19 History Allergies Allergy/AdvReac Type Severity Reaction Status Date / Time Penicillins Allergy Rash/Hives Verified 03/17/19 15:16 Physical Exam Vitals: Vital Signs Temp Pulse Pulse Resp BP BP Pulse Ox 03/30/19 08:25 63 18 111/47 92 L 03/30/19 08:10 60 18 102/46 92 L 03/30/19 07:55 67 18 99/44 89 L 03/30/19 07:41 96.8 F L 106 H 14 100/47 93 L 03/30/19 05:30 77 17 91/36 90 L 03/30/19 05:00 56 L 16 99/45 94 L 03/30/19 04:30 76 12 92/38 89 L 03/30/19 04:00 98.5 F 57 L 16 89/39 94 L 03/30/19 03:30 58 L 12 92/39 93 L 03/30/19 03:00 61 18 100/43 90 L 03/30/19 02:30 63 15 94/60 92 L 03/30/19 02:00 61 14 94/42 92 L 03/30/19 01:30 61 14 92/58 93 L 03/30/19 01:00 66 21 106/48 95 03/30/19 00:30 81 24 86/46 90 L 03/30/19 00:00 98.4 F 70 17 103/45 94 L 03/29/19 23:30 75 21 90/42 93 L 03/29/19 23:20 73 18 90/42 91 L 03/29/19 23:00 76 18 90/42 92 L 03/29/19 22:30 98.5 F 96 25 H 105/46 91 L 03/29/19 22:26 80 18 91 L 03/29/19 21:26 71 16 106/46 93 L 03/29/19 21:24 98.5 F 03/29/19 20:42 69 16 103/83 92 L 03/29/19 19:49 72 18 107/45 91 L 03/29/19 18:15 65 16 108/94 95 03/29/19 15:30 106/58 94 L 03/29/19 15:26 93 L 03/29/19 15:23 98.6 F 80 18 106/58 93 L Intake and Output 03/29/19 03/30/19 03/30/19 22:59 06:59 14:59 Intake Total 6209 350 Output Total 0 205 100 Balance 0 6004 250 Intake: IV 6209 350 Aztreonam 2 gm In Sodium 100 Chloride 0.9% 100 ml @ 100 mls/hr IVPB Q8HR [facility] Rx#:[id number] Levofloxacin 750Mg-D5w 200 Pmx 750 mg In Dextrose/ Water 1 150ml.bag @ 100 mls/hr IVPB ONCE STA Rx#: [id number] Sodium Chloride 0.9% 1, 660 000 ml @ 120 mls/hr IV . Q8H20M [facility] Rx#:[id number] Sodium Chloride 0.9% 1, 1999 000 ml @ 999 mls/hr IV . Q1H1M [facility] Rx#:[id number] Output: Urine 0 180 100 Estimated Blood Loss 25 Other: Voiding Method Indwelling Catheter Weight 62.4 kg 66.3 kg Results 03/30/19 03:11 03/30/19 03:11 Cardiac Enzymes 03/29/19 03/29/19 03/29/19 Range/Units 15:33 15:33 19:48 AST 53 H (14-36) U/L Troponin I 5.250 H* 5.120 H* (0.000-0.034) ng/mL 03/30/19 03/30/19 Range/Units 03:10 03:11 AST 31 (14-36) U/L Troponin I 3.650 H* (0.000-0.034) ng/mL Coagulation 03/29/19 Range/Units 17:02 PT 11.4 (9.0-12.0) sec APTT 20.9 L (22.0-30.0) sec Lipids 03/30/19 Range/Units 03:11 Triglycerides 81 (<150) mg/dL Cholesterol 119 (<200) mg/dL HDL Cholesterol 42 (40-60) mg/dL CBC 03/29/19 03/30/19 Range/Units 15:33 03:11 WBC 12.5 H 7.0 (3.8-10.6) k/uL RBC 4.03 3.22 L (3.80-5.40) m/uL Hgb 12.2 10.3 L (11.4-16.0) gm/dL Hct 38.2 31.8 L (34.0-46.0) % Plt Count 273 176 (150-450) k/uL Comprehensive Metabolic Panel 03/29/19 03/30/19 Range/Units 15:33 03:11 Sodium 143 142 (137-145) mmol/L Potassium 3.6 3.5 (3.5-5.1) mmol/L Chloride 113 H 119 H (98-107) mmol/L Carbon Dioxide 18 L 19 L (22-30) mmol/L BUN 22 H 25 H (7-17) mg/dL Creatinine 0.85 1.00 (0.52-1.04) mg/dL Glucose 138 H 123 H (74-99) mg/dL Calcium 9.6 8.0 L (8.4-10.2) mg/dL AST 53 H 31 (14-36) U/L ALT 20 13 (4-34) U/L Alkaline Phosphatase 90 48 (38-126) U/L Total Protein 5.4 L 3.8 L (6.3-8.2) g/dL Albumin 2.9 L 1.9 L (3.5-5.0) g/dL Current Medications Generic Name Dose Route Start Last Admin Trade Name Freq PRN Reason Stop Dose Admin Albuterol/Ipratropium 3 ml 03/30/19 10:45 Duoneb 0.5 Mg-3 Mg/3 Ml Soln INHALATION RT-TID PRN Shortness Of Breath Or Wheezing Albuterol/Ipratropium 3 ml 03/30/19 13:00 Duoneb 0.5 Mg-3 Mg/3 Ml Soln INHALATION RT-TID [facility] Enoxaparin Sodium 30 mg 03/30/19 09:00 03/30/19 09:05 Lovenox SQ 30 mg DAILY [facility] Administration Hydromorphone HCl 0.5 mg 03/29/19 21:01 03/30/19 02:46 Dilaudid IVP 0.5 mg Q2HR PRN Administration Pain Scale 4 to 5 Hydromorphone HCl 1 mg 03/29/19 21:01 Dilaudid IVP Q2HR PRN Pain Scale 6 to 7 Metronidazole 500 mg/ IV 100 mls @ 100 mls/hr 03/30/19 02:00 03/30/19 09:05 Solution IVPB 100 mls/hr Q6H [facility] Administration Aztreonam 2 gm/ Sodium 100 mls @ 100 mls/hr 03/30/19 00:00 03/30/19 08:58 Chloride IVPB 100 mls/hr Q8HR [facility] Administration Protocol Sodium Chloride 1,000 mls @ 120 mls/hr 03/29/19 21:15 03/30/19 09:00 Saline 0.9% IV 120 mls/hr .Q8H20M [facility] Administration Fluconazole/Sodium Chloride 100 mls @ 100 mls/hr 03/30/19 09:00 03/30/19 09:00 200 mg/ IV Solution IVPB 100 mls/hr DAILY [facility] Administration Naloxone HCl 0.2 mg 03/29/19 21:01 Narcan IV Q2M PRN Opioid Reversal Periguard Ointment 1 applic 03/30/19 08:00 03/30/19 09:05 TOPICAL Not Given TID@0800,1200,1800 [facility] Nystatin 1 applic 03/30/19 09:00 Mycostatin Powder TOPICAL TID [facility] Ondansetron HCl 4 mg 03/30/19 00:32 03/30/19 00:45 Zofran IVP 4 mg Q6HR PRN Administration Nausea And Vomiting Pantoprazole Sodium 40 mg 03/30/19 09:00 03/30/19 09:05 Protonix IV 40 mg BID [facility] Administration Intake and Output 03/29/19 03/30/19 03/30/19 22:59 06:59 14:59 Intake Total 6209 350 Output Total 0 205 100 Balance 0 6004 250 Intake: IV 6209 350 Aztreonam 2 gm In Sodium 100 Chloride 0.9% 100 ml @ 100 mls/hr IVPB Q8HR [facility] Rx#:[id number] Levofloxacin 750Mg-D5w 200 Pmx 750 mg In Dextrose/ Water 1 150ml.bag @ 100 mls/hr IVPB [facility]CE [facility] Rx#: [id number] Sodium Chloride 0.9% 1, 660 000 ml @ 120 mls/hr IV . Q8H20M [facility] Rx#:[id number] Sodium Chloride 0.9% 1, 1999 000 ml @ 999 mls/hr IV . Q1H1M [facility] Rx#:[id number] Output: Urine 0 180 100 Estimated Blood Loss 25 Other: Voiding Method Indwelling Catheter Weight 62.4 kg 66.3 kg 03/30/19 03:11 03/30/19 03:11
[2019-03-30] MEDS: HYDROmorphone 1 MG/ML 1 ML SYRINGE IVP PRN (11:36)
[2019-03-30 11:41] LABS: Magnesium 1.8 mg/dL (1.6-2.3); Phosphorus 2.4 mg/dL (2.5-4.5)
[2019-03-30] MEDS ORDERED: HEPARIN SODIUM,PORCINE 5,000 UNIT/ML 1 ML VIAL IV PRN (12:44)
[2019-03-30] MEDS ORDERED: HEPARIN SODIUM,PORCINE 5,000 UNIT/ML 1 ML VIAL IV ONE (12:44)
[2019-03-30] MEDS ORDERED: HEPARIN SOD,PORK IN 0.45% NACL 25,000 UNIT in 0.45% NACL 1 250ML.BAG IV SCH (12:45)
[2019-03-30] MEDS ORDERED: ASPIRIN 81 MG PO SCH (12:45)
[2019-03-30] MEDS ORDERED: MVI, ADULT NO.4 WITH VIT K 10 ML, TRACE (CONC-1ML/DOSE) 1 ML in AMINO ACID 4.25%-D10W+L... IV SCH ×3 (13:00)
[2019-03-30] MEDS: NYSTATIN 100,000 UNIT/GM POWD 15 GM TOPICAL SCH ×3 (13:02→21:45)
[2019-03-30] MEDS: METOPROLOL TARTRATE 25 MG TAB PO SCH ×2 (13:14→21:41)
[2019-03-30] MEDS ORDERED: FUROSEMIDE 10 MG/ML 2 ML VIAL IV ONE ×2 (13:16→23:09)
[2019-03-30] MEDS: FAT EMULSION 20% 250 ML IV SCH (13:22)
[2019-03-30] MEDS ORDERED: MENTHOL-ZINC OXIDE OINT 113 GM TUBE TOPICAL PRN (13:38)
[2019-03-30 13:44] LABS: Glucose,Whole Blood 141 mg/dL (75-99)
--- NOTE | 2019-03-30 14:00 | ECHOF ---
Referral Reason:LVF MEASUREMENTS -------- HEIGHT: 162.6 cm WEIGHT: 70.8 kg BP: IVSd: 1.1 cm (0.6 - 1.1) LVIDd: 3.3 cm (3.9 - 5.3) LVPWd: 1.1 cm (0.6 - 1.1) IVSs: 1.4 cm LVIDs: 2.2 cm LVPWs: 1.2 cm Ao Diam: 2.3 cm (2.0 - 3.7) AV Cusp: 1.6 cm (1.5 - 2.6) LA Diam: 3.1 cm (2.7 - 3.8) MV EXCURSION: 13.838 mm (> 18.000) MV EF SLOPE: 58 mm/s (70 - 150) EPSS: 0.6 cm MV E Felipe: 0.96 m/s MV DecT: 249 ms MV A Felipe: 0.78 m/s MV E/A Ratio: 1.24 RAP: 5.00 mmHg RVSP: 38.47 mmHg FINDINGS -------- Sinus rhythm. This was a technically adequate study. The left ventricular size is normal. Left ventricular wall thickness is normal. Overall left vent ricular systolic function is moderately impaired with, an EF between 35 - 40 %. Apical anterior LV wall motion is hypokinetic. Apical lateral LV wall motion is hypokinetic. Apical inferior LV wa ll motion is hypokinetic. The right ventricle is normal in size. The left atrial size is normal. The right atrial size is normal. The aortic valve is trileaflet and appears structurally normal. The mitral valve is normal. The mitral valve leaflets are mildly thickened. Mild mitral regurgita tion is present. The tricuspid valve appears structurally normal. Mild tricuspid regurgitation present. Right vent ricular systolic pressure is normal at < 35 mmHg. There is no pulmonic regurgitation present. The aortic root size is normal. IVC Not well visulized. There is a trivial pericardial effusion present. CONCLUSIONS -------- 1. Sinus rhythm. 2. This was a technically adequate study. 3. The left ventricular size is normal. 4. Left ventricular wall thickness is normal. 5. Overall left ventricular systolic function is moderately impaired with, an EF between 35 - 40 %. 6. Apical anterior LV wall motion is hypokinetic. 7. Apical lateral LV wall motion is hypokinetic. 8. Apical inferior LV wall motion is hypokinetic. 9. The right ventricle is normal in size. 10. The left atrial size is normal. 11. The right atrial size is normal. 12. The aortic valve is trileaflet and appears structurally normal. 13. The mitral valve is normal. 14. The mitral valve leaflets are mildly thickened. 15. Mild mitral regurgitation is present. 16. The tricuspid valve appears structurally normal. 17. Mild tricuspid regurgitation present. 18. Right ventricular systolic pressure is normal at < 35 mmHg. 19. There is no pulmonic regurgitation present. 20. The aortic root size is normal. 21. IVC Not well visulized. 22. There is a trivial pericardial effusion present. CIRCLE SAW OPERATOR: Lisa Baum RDCS
[2019-03-30 14:16] LABS: INR 1.3 (<1.2); Partial Thromboplastin Time 28.7 sec (22.0-30.0); Prothrombin Time 13.4 sec (9.0-12.0)
[2019-03-30 14:23] LABS: Calcium 7.7 mg/dL (8.4-10.2); Magnesium 1.5 mg/dL (1.6-2.3); Phosphorus 3.5 mg/dL (2.5-4.5); Potassium 3.8 mmol/L (3.5-5.1); Total Bilirubin 0.7 mg/dL (0.2-1.3); Total Protein 4.1 g/dL (6.3-8.2)
[2019-03-30] MEDS: IPRATROPIUM-ALBUTEROL 3 ML NEB INHALATION SCH ×2 (15:00→19:26)
--- NOTE | 2019-03-30 15:30 | CONS ---
CONSULTATION PULMONARY/CRITICAL CARE CONSULTATION: DATE OF SERVICE: 03/30/2019 This is a patient who was seen in the emergency department on March 29. She was brought in by EMS with abdominal pain. Her chief complaint was that of abdominal pain. She apparently came from [facility]. She apparently also had episodes of nausea with multiple episodes of vomiting. This has been going on for a couple of days. The belly pain apparently got much worse on the day of admission. There was no fever or chills. There was no chest pain or shortness of breath. There was no constipation or diarrhea. Anyway, in the process of working her up, it was thought that she might have pneumonia. In addition, her troponins were elevated and she was noted to have a pneumoperitoneum. Initially, surgery was not interested in taking her to the operating room right away because she was too ill, and then this morning she went to the operating room, had exploratory laparotomy, was found to have duodenal perforation, had a duodenal patch placed. Dr. Sosa, I believe, did the surgery. She currently has an NG tube in place and is on nasal O2 at 6 L. Her IV is saline at 120 mL an hour. Her chest x-ray shows some bibasilar right greater than left airspace disease. She currently is doing a bit better. As I mentioned, IV is in place an NG tube is in place and she is on nasal O2. According to the ER dayna, her home medications included PeriGuard ointment, nystatin powder, naproxen, and aspirin low dose. ALLERGIES: PENICILLIN. CURRENT MEDICATIONS: Include aztreonam, Lovenox, fluconazole, Dilaudid, Levaquin, Flagyl, Narcan, nystatin powder, Zofran Protonix. PAST MEDICAL HISTORY: Apparently only positive for uterine cancer and hyperlipidemia. SURGICAL HISTORY: Includes hysterectomy and cervical fusion. SOCIAL HISTORY: Positive for previous tobacco use. No alcohol use or illicit drug use. FAMILY HISTORY: Positive for a father with diabetes and hypertension, a sister with DVT and hypertension and a brother with DVT. REVIEW OF SYSTEMS: CONSTITUTIONAL: Negative. NEUROLOGIC: Negative. HEENT: Negative. CARDIOVASCULAR: Negative. PULMONARY: Negative. GI: Abdominal pain, nausea, vomiting which is what brought her into the hospital to begin with. : Negative. RHEUMATOLOGIC: Negative. IMMUNOLOGIC: Negative. ENDOCRINOLOGIC: Negative. DERMATOLOGIC: Negative. PHYSICAL EXAMINATION: Current vital signs are reviewed. Temperature is 96.8, heart rate 63, respiratory rate 18, blood pressure 111/47, 3 L saturations 92%. Appears in no acute distress. HEENT examination is grossly unremarkable. NG tube is noted as well as nasal O2. Mucous membranes are dry. NECK: Supple. Full range of motion. No adenopathy. Neck veins are flat. CARDIOVASCULAR examination reveals regular rhythm and rate. S1, S2 normal. Heart rate 70. LUNGS: Reveal mostly clear breath sounds. A few scattered rhonchi. No wheezes or crackles. ABDOMEN is mildly distended. No bowel sounds. Tender on palpation. EXTREMITIES are intact. No edema. SKIN: Without rash. NEUROLOGIC: Examination is difficult to assess but she does move all 4 extremities and she is appropriate when speaking to her. LABS: Reviewed. White count of 7, hemoglobin 10.3, hematocrit 31.8, platelet count 176,000. PT/INR normal. PTT 20.9. Sodium 142, potassium 3.5, chloride 119, CO2 19, anion gap is 4. BUN and creatinine were 25 and 1.0. Troponins were 5.120 and 3.650. Albumin 1.9, total protein 3.8. Lipase and amylase were both normal. Urine was yellow and clear. Specific gravity is greater than 1.050. There is 2+ ketones. There is trace leukocyte esterase, 52 RBCs, 12 WBCs and occasional bacteria. EKG showed normal sinus rhythm without ST-segment elevations. There are nonspecific ST- T wave changes. Medications are reviewed as mentioned above. ASSESSMENT: 1. Day #0 status post exploratory laparotomy, repair of a duodenal perforation with duodenal patch. 2. Pneumoperitoneum secondary to duodenal perforation. 3. History of hyperlipidemia. 4. History of uterine cancer, status post hysterectomy. 5. Prior history of tobacco use. 6. Rule out non ST-segment elevation myocardial infarction. 7. Possible right basilar airspace disease/pneumonia. 8. Mild anemia. 9. Acute hyperchloremia secondary to saline administration. PLAN: The patient's medications are reviewed. We will continue to follow. She is on good antibiotics. We are going to recommend incentive spirometry q.1 hour while awake. We also recommend deep breathing, coughing, clearing of secretions. Additional recommendations and suggestions are forthcoming. I will add some updrafts q.i.d. p.r.n. We will continue to follow. Prognosis is guarded. MMODL / IJN: [id number] /
[2019-03-30] MEDS: ASPIRIN 300 MG SUPP RECTAL SCH (16:49)
[2019-03-30] MEDS ORDERED: Magnesium Replacement Protocol 1 EACH MISC MISCELLANE PRN (17:20)
[2019-03-30] MEDS: MAGNESIUM SULFATE-D5W PMX 1 GM in DEXTROSE/WATER 1 100ML.BAG IVPB SCH ×2 (17:49→19:22)
[2019-03-30 17:53] LABS: Glucose,Whole Blood 188 mg/dL (75-99)
[2019-03-30] MEDS ORDERED: LEVOFLOXACIN 750MG-D5W PMX 750 MG in DEXTROSE/WATER 1 150ML.BAG IVPB SCH (19:30)
[2019-03-30] MEDS: ATORVASTATIN 40 MG TAB PO SCH (21:41)
[2019-03-30 23:14] LABS: Glucose,Whole Blood 172 mg/dL (75-99)
[2019-03-30] MEDS: INSULIN ASPART (NovoLOG) 100 UNIT/ML VIAL SQ SCH (23:20)
[2019-03-31] MEDS: HYDROmorphone 0.5 MG/0.5 ML SYRINGE IVP PRN (01:59)
[2019-03-31] MEDS: metroNIDAZOLE-NS PMX 500 MG in SALINE 1 100ML.BAG IVPB SCH ×4 (02:00→20:13)
[2019-03-31] MEDS: SODIUM CHLORIDE 0.9% 1,000 ML IV SCH ×3 (03:56→15:13)
[2019-03-31 05:35] LABS: Ionized Calcium 5.5 mg/dL (4.5-5.3)
[2019-03-31 05:36] LABS: Basophils % (A) 0 %; Eosinophils # (A) 0.1 k/uL (0-0.7); Eosinophils % (A) 1 %; HCT 31.5 % (34.0-46.0); HGB 9.8 gm/dL (11.4-16.0); Hypochromasia Moderate; Lymphocytes # (A) 0.7 k/uL (1.0-4.8); Lymphocytes % (A) 8 %; MCH 30.9 pg (25.0-35.0); MCHC 31.2 g/dL (31.0-37.0); MCV 98.9 fL (80.0-100.0); Macrocytosis Slight; Mean Platelet Volume 10.1; Monocytes # (A) 0.4 k/uL (0-1.0); Monocytes % (A) 4 %; Neutrophils # (A) 8.5 k/uL (1.3-7.7); Neutrophils % (A) 87 %; Platelet Count 167 k/uL (150-450); Poikilocytosis Slight; RBC 3.19 m/uL (3.80-5.40); RDW 15.1 % (11.5-15.5); WBC 9.8 k/uL (3.8-10.6)
[2019-03-31 05:41] LABS: Magnesium 2.2 mg/dL (1.6-2.3); Phosphorus 3.2 mg/dL (2.5-4.5); Potassium 3.3 mmol/L (3.5-5.1)
[2019-03-31] MEDS ORDERED: Potassium Replacement Protocol 1 EACH MISC MISCELLANE PRN (06:14)
[2019-03-31 06:19] LABS: Glucose,Whole Blood 172 mg/dL (75-99)
[2019-03-31] MEDS: INSULIN ASPART (NovoLOG) 100 UNIT/ML VIAL SQ SCH ×4 (06:24→23:36)
[2019-03-31] MEDS: POTASSIUM CHLORIDE 10 MEQ in WATER FOR INJECTION 1 100ML.BAG IVPB SCH ×6 (06:25→18:24)
--- NOTE | 2019-03-31 08:08 | P.PN ---
Subjective Progress Note Date: 03/30/19 Chart was reviewed. pt seen and examined pt presented with acute abdomen due to perforated duodenal ulcer and underwent urgent perforation repair with surgery earlier today. She is in ICU currnetly, not intubated, not on pressors. She is quite lethargic, no history can be obtained. Raissa is on broad spectrum antibiotics. She aslo had very elevated troponin wit hEKG changes of T vwaw inversions, felt t obe NSTEMi but obviously not a candidate for aggressive treatment currenlty. Echo showed mildly reduced EF with apical hypokinetic changes. Objective - Vital Signs Vital signs: Vital Signs Temp 98.4 F 03/31/19 04:00 Pulse 64 03/31/19 07:00 Resp 15 03/31/19 07:00 BP 112/46 03/31/19 07:00 Pulse Ox 95 03/31/19 07:00 Intake & Output 03/30/19 03/31/19 03/31/19 18:59 06:59 18:59 Intake Total 2235.04 2640.44 190.8 Output Total 975 1117 25 Balance 1260.04 1523.44 165.8 Weight 66.3 kg 72.8 kg Intake: IV 2235.04 2640.44 190.8 Aztreonam 2 gm In Sodium 200 Chloride 0.9% 100 ml @ 100 mls/hr IVPB Q8HR [facility] Rx#:[id number] Fat Emulsion 20% 250 ml @ 125.04 270.44 20.8 20.833 mls/hr IV Q24H [facility] Rx#:[id number] Fluconazole in NaCl,Iso- 100 Osm 200 mg In Saline 1 100ml.bag @ 100 mls/hr IVPB DAILY [facility] Rx#: [id number] Magnesium Sulfate-D5w Pmx 100 320 1 gm In Dextrose/Water 1 100ml.bag @ 100 mls/hr IVPB Q1H [facility] Rx#: [id number] Mvi, Adult No.4 with Vit 300 650 50 K 10 ml Trace (Conc-1Ml/ Dose) 1 ml In Amino Acid 4.25%-D10w+Lytes*E* 1,000 ml @ 50 mls/hr IV . [id number] [facility] Rx#:[id number] Sodium Chloride 0.9% 1, 960 1200 120 000 ml @ 120 mls/hr IV . Q8H20M [facility] Rx#:[id number] metroNIDAZOLE-NS PMX 500 100 200 mg In Saline 1 100ml.bag @ 100 mls/hr IVPB Q6H [facility] Rx#:[id number] Output: Drainage 350 345 Left Lower Abdomen 175 180 Left Upper Abdomen 175 165 Urine 625 772 25 Other: Voiding Method Indwelling Catheter Indwelling Catheter - Exam Vital Signs: I have reviewed the vital signs. GENERAL: Lethargic, not in any apparent distress Eyes: Pupils are equal round and reactive to light, clear conjunctiva Head: : Atraumatic external nose and ears, oropharyngeal mucosa is moist without lesions or exudates Neck: Symmetric, trachea midline, No thyromegaly, no masses or neck vain pulsation, no neck rigidity CVS: +S1/S2, No murmurs or gallops. Peripheral pulses 2+ and equal in all extremities. RESP: Unlabored respiratory effort. Clear to auscultation bilaterally. Abdomen: Abdominal binder, bowel sounds are decreased Musculoskeletal: Extremities w/o deformity, No cyanosis or clubbing, no joint swelling Skin: Warm, Dry. No rashes or lesions - Labs CBC & Chem 7: 03/31/19 05:10 03/31/19 05:10 Labs: Abnormal Lab Results - Last 24 Hours (Table) 03/30/19 03/30/19 03/30/19 Range/Units 03:11 13:41 13:43 RBC (3.80-5.40) m/uL Hgb (11.4-16.0) gm/dL Hct (34.0-46.0) % Neutrophils # (1.3-7.7) k/uL Lymphocytes # (1.0-4.8) k/uL PT 13.4 H (9.0-12.0) sec INR 1.3 H (<1.2) Potassium (3.5-5.1) mmol/L Chloride (98-107) mmol/L Carbon Dioxide (22-30) mmol/L BUN (7-17) mg/dL Glucose (74-99) mg/dL POC Glucose (mg/dL) 141 H (75-99) mg/dL Calcium (8.4-10.2) mg/dL Ionized Calcium Angela (4.5-5.3) mg/dL Phosphorus 2.4 L (2.5-4.5) mg/dL Magnesium (1.6-2.3) mg/dL Total Protein (6.3-8.2) g/dL Albumin (3.5-5.0) g/dL 03/30/19 03/30/19 03/30/19 Range/Units 13:43 17:51 23:12 RBC (3.80-5.40) m/uL Hgb (11.4-16.0) gm/dL Hct (34.0-46.0) % Neutrophils # (1.3-7.7) k/uL Lymphocytes # (1.0-4.8) k/uL PT (9.0-12.0) sec INR (<1.2) Potassium (3.5-5.1) mmol/L Chloride 122 H (98-107) mmol/L Carbon Dioxide 16 L (22-30) mmol/L BUN 24 H (7-17) mg/dL Glucose 133 H (74-99) mg/dL POC Glucose (mg/dL) 188 H 172 H (75-99) mg/dL Calcium 7.7 L (8.4-10.2) mg/dL Ionized Calcium Angela (4.5-5.3) mg/dL Phosphorus (2.5-4.5) mg/dL Magnesium 1.5 L (1.6-2.3) mg/dL Total Protein 4.1 L (6.3-8.2) g/dL Albumin 2.0 L (3.5-5.0) g/dL 03/31/19 03/31/19 03/31/19 Range/Units 05:10 05:10 06:18 RBC 3.19 L (3.80-5.40) m/uL Hgb 9.8 L (11.4-16.0) gm/dL Hct 31.5 L (34.0-46.0) % Neutrophils # 8.5 H (1.3-7.7) k/uL Lymphocytes # 0.7 L (1.0-4.8) k/uL PT (9.0-12.0) sec INR (<1.2) Potassium 3.3 L (3.5-5.1) mmol/L Chloride 122 H (98-107) mmol/L Carbon Dioxide 17 L (22-30) mmol/L BUN 27 H (7-17) mg/dL Glucose 147 H (74-99) mg/dL POC Glucose (mg/dL) 172 H (75-99) mg/dL Calcium 8.0 L (8.4-10.2) mg/dL Ionized Calcium Angela 5.5 H (4.5-5.3) mg/dL Phosphorus (2.5-4.5) mg/dL Magnesium (1.6-2.3) mg/dL Total Protein (6.3-8.2) g/dL Albumin (3.5-5.0) g/dL Microbiology - Last 24 Hours (Table) 03/30/19 06:21 Gram Stain - Preliminary Other - Other Wound Culture - Preliminary 03/29/19 19:48 Blood Culture - Preliminary Blood No Growth after 24 hours 03/30/19 06:21 Anaerobic Culture - Preliminary Peritoneal Fluid 03/29/19 15:57 Urine Culture - Preliminary Urine,Clean Catch Assessment and Plan Assessment: 1. Perforated duodenal ulcer Status post repair Continue care per general surgery Antibiotics per infectious disease PPI Supportive care 2. Non-STEMI Management per cardiology
[2019-03-31] MEDS: IPRATROPIUM-ALBUTEROL 3 ML NEB INHALATION SCH ×3 (08:10→20:14)
[2019-03-31] MEDS ORDERED: ENOXAPARIN 30 MG/0.3 ML SYRINGE SQ SCH (09:00)
--- NOTE | 2019-03-31 09:04 | P.PN ---
Subjective Progress Note Date: 03/31/19 Principal diagnosis: Duodenal perforation with exploratory laparotomy and duodenal patch postoperative day #1 The patient is seen today 03/31/2019 in follow-up in the intensive care unit. This is postoperative day #1 of an exploratory laparotomy with repair of duodenal perforation with duodenal patch. There was pneumoperitoneum secondary to the duodenal perforation. She is currently awake and alert in no acute distress. Resting comfortably in bed. Maintaining O2 saturations in the 90s on 4 L/m per nasal cannula. She has appointment 9 normal saline at 120 ML's per hour. TPN at 80 mL per hour. Lipids. Urine and blood cultures are revealing no growth. Wound culture with April. Peritoneal fluid analysis pending. White count 9.8. Hemoglobin 9.8. Sodium 142. Potassium 3.3. Bicarb 17. Creatinine 1.02. NG tube remains in place. She is on DuoNeb inhalations. Antibiotics in the form of aztreonam along with Flagyl. She is at 8 L positive balance. Borderline urine output. Initiated Lasix 40 mg IV every 8 hours. Objective - Vital Signs Vital signs: Vital Signs Temp 98.4 F 03/31/19 04:00 Pulse 66 03/31/19 08:17 Resp 15 03/31/19 07:00 BP 112/46 03/31/19 07:00 Pulse Ox 95 03/31/19 07:00 Intake & Output 03/30/19 03/31/19 03/31/19 18:59 06:59 18:59 Intake Total 2235.04 2640.44 190.8 Output Total 975 1117 25 Balance 1260.04 1523.44 165.8 Weight 66.3 kg 72.8 kg Intake: IV 2235.04 2640.44 190.8 Aztreonam 2 gm In Sodium 200 Chloride 0.9% 100 ml @ 100 mls/hr IVPB Q8HR [facility] Rx#:[id number] Fat Emulsion 20% 250 ml @ 125.04 270.44 20.8 20.833 mls/hr IV Q24H [facility] Rx#:[id number] Fluconazole in NaCl,Iso- 100 Osm 200 mg In Saline 1 100ml.bag @ 100 mls/hr IVPB DAILY [facility] Rx#: [id number] Magnesium Sulfate-D5w Pmx 100 320 1 gm In Dextrose/Water 1 100ml.bag @ 100 mls/hr IVPB Q1H [facility] Rx#: [id number] Mvi, Adult No.4 with Vit 300 650 50 K 10 ml Trace (Conc-1Ml/ Dose) 1 ml In Amino Acid 4.25%-D10w+Lytes*E* 1,000 ml @ 50 mls/hr IV . [id number] [facility] Rx#:[id number] Sodium Chloride 0.9% 1, 960 1200 120 000 ml @ 120 mls/hr IV . Q8H20M [facility] Rx#:[id number] metroNIDAZOLE-NS PMX 500 100 200 mg In Saline 1 100ml.bag @ 100 mls/hr IVPB Q6H [facility] Rx#:[id number] Output: Drainage 350 345 Left Lower Abdomen 175 180 Left Upper Abdomen 175 165 Urine 625 772 25 Other: Voiding Method Indwelling Catheter Indwelling Catheter - Exam GENERAL EXAM: Alert, pleasant 74-year-old female patient, on 4 L nasal cannula with O2 saturation 95%,, comfortable in no apparent distress. HEAD: Normocephalic. EYES: Normal reaction of pupils, equal size. NOSE: NG tube in place. Clear with pink turbinates. THROAT: No erythema or exudates. NECK: No masses, no JVD. CHEST: No chest wall deformity. LUNGS: Equal air entry with few scattered rhonchi bilaterally.. CVS: S1 and S2 normal with no audible murmur, regular rhythm. ABDOMEN: Abdominal dressing in place. No hepatosplenomegaly, normal bowel sounds, no guarding or rigidity. SPINE: No scoliosis or deformity SKIN: No rashes CENTRAL NERVOUS SYSTEM: No focal deficits, tone is normal in all 4 extremities. EXTREMITIES: There is no peripheral edema. No clubbing, no cyanosis. Peripheral pulses are intact. - Labs CBC & Chem 7: 03/31/19 05:10 03/31/19 05:10 Labs: Abnormal Lab Results - Last 24 Hours (Table) 03/30/19 03/30/19 03/30/19 Range/Units 03:11 13:41 13:43 RBC (3.80-5.40) m/uL Hgb (11.4-16.0) gm/dL Hct (34.0-46.0) % Neutrophils # (1.3-7.7) k/uL Lymphocytes # (1.0-4.8) k/uL PT 13.4 H (9.0-12.0) sec INR 1.3 H (<1.2) Potassium (3.5-5.1) mmol/L Chloride (98-107) mmol/L Carbon Dioxide (22-30) mmol/L BUN (7-17) mg/dL Glucose (74-99) mg/dL POC Glucose (mg/dL) 141 H (75-99) mg/dL Calcium (8.4-10.2) mg/dL Ionized Calcium Angela (4.5-5.3) mg/dL Phosphorus 2.4 L (2.5-4.5) mg/dL Magnesium (1.6-2.3) mg/dL Total Protein (6.3-8.2) g/dL Albumin (3.5-5.0) g/dL 03/30/19 03/30/19 03/30/19 Range/Units 13:43 17:51 23:12 RBC (3.80-5.40) m/uL Hgb (11.4-16.0) gm/dL Hct (34.0-46.0) % Neutrophils # (1.3-7.7) k/uL Lymphocytes # (1.0-4.8) k/uL PT (9.0-12.0) sec INR (<1.2) Potassium (3.5-5.1) mmol/L Chloride 122 H (98-107) mmol/L Carbon Dioxide 16 L (22-30) mmol/L BUN 24 H (7-17) mg/dL Glucose 133 H (74-99) mg/dL POC Glucose (mg/dL) 188 H 172 H (75-99) mg/dL Calcium 7.7 L (8.4-10.2) mg/dL Ionized Calcium Angela (4.5-5.3) mg/dL Phosphorus (2.5-4.5) mg/dL Magnesium 1.5 L (1.6-2.3) mg/dL Total Protein 4.1 L (6.3-8.2) g/dL Albumin 2.0 L (3.5-5.0) g/dL 03/31/19 03/31/19 03/31/19 Range/Units 05:10 05:10 06:18 RBC 3.19 L (3.80-5.40) m/uL Hgb 9.8 L (11.4-16.0) gm/dL Hct 31.5 L (34.0-46.0) % Neutrophils # 8.5 H (1.3-7.7) k/uL Lymphocytes # 0.7 L (1.0-4.8) k/uL PT (9.0-12.0) sec INR (<1.2) Potassium 3.3 L (3.5-5.1) mmol/L Chloride 122 H (98-107) mmol/L Carbon Dioxide 17 L (22-30) mmol/L BUN 27 H (7-17) mg/dL Glucose 147 H (74-99) mg/dL POC Glucose (mg/dL) 172 H (75-99) mg/dL Calcium 8.0 L (8.4-10.2) mg/dL Ionized Calcium Angela 5.5 H (4.5-5.3) mg/dL Phosphorus (2.5-4.5) mg/dL Magnesium (1.6-2.3) mg/dL Total Protein (6.3-8.2) g/dL Albumin (3.5-5.0) g/dL Microbiology - Last 24 Hours (Table) 03/30/19 06:21 Gram Stain - Preliminary Other - Other Wound Culture - Preliminary April albicans 03/29/19 19:48 Blood Culture - Preliminary Blood No Growth after 24 hours 03/30/19 06:21 Anaerobic Culture - Preliminary Peritoneal Fluid 03/29/19 15:57 Urine Culture - Preliminary Urine,Clean Catch Assessment and Plan Assessment: 1 Pneumoperitoneum status post exploratory laparotomy with duodenal patch. Postoperative day #1 2 Patchy bibasilar infiltrate suspect aspiration versus pneumonitis 3 Acute hypoxic respiratory failure secondary to above 4 Acute exacerbation of systolic congestive heart failure with impaired left ventricular systolic function with ejection fraction 35-40% 5 Hyperlipidemia. 6 History of uterine cancer status post hysterectomy 7 Previous history of chronic tobacco dependence Plan: The patient was seen and evaluated by Dr. Majano. We did initiate Lasix 40 mg IV every 8 hours. Continue the other treatment plans. Encourage increased use of the incentive spirometer and cough and deep breathing exercises. Asked x-ray in a.m. We will continue to follow and make further recommendations based on her clinical status. I, the cosigning physician, performed a history & physical examination of the patient. Lungs sounds bilateral scattered rhonchi. Maintaining good O2 saturations in the 90s on 4 L/m per nasal cannula. I discussed the assessment and plan of care with my nurse practitioner, Loreta Jauregui. I attest to the above note as dictated by her.
[2019-03-31] MEDS: AZTREONAM 2 GM in SODIUM CHLORIDE 0.9% 100 ML IVPB SCH ×5 (09:07→23:27)
[2019-03-31] MEDS: FLUCONAZOLE IN NACL,ISO-OSM 200 MG in SALINE 1 100ML.BAG IVPB SCH (09:07)
[2019-03-31] MEDS: PERIGUARD TOPICAL SCH ×3 (09:08→17:06)
[2019-03-31] MEDS: FUROSEMIDE 10 MG/ML 4 ML VIAL IV SCH ×3 (09:08→23:22)
[2019-03-31] MEDS: ASPIRIN 300 MG SUPP RECTAL SCH (09:08)
[2019-03-31] MEDS: PANTOPRAZOLE 40 MG/10 ML VIAL IV SCH ×2 (09:08→20:07)
[2019-03-31] MEDS: HYDROmorphone 1 MG/ML 1 ML SYRINGE IVP PRN ×4 (09:36→23:25)
--- NOTE | 2019-03-31 09:37 | P.PN ---
Subjective Summary: pt presented with acute abdomen due to perforated duodenal ulcer and underwent urgent perforation repair with surgery earlier today. She is in ICU currnetly, not intubated, not on pressors. Her home medication included naproxen and aspirin. She had been started on broad-spectrum antibiotics by infectious disease. She aslo had very elevated troponin with EKG changes of T wave inversions, felt to be NSTEMi but obviously not a candidate for aggressive treatment currently. Echo showed mildly reduced EF with apical hypokinetic changes. Interval history: Patient is much more awake and alert this morning. Her blood pressure stable. She does not have any particular focal complaints no abdominal pain no chest pain. She denies any chest pain or shortness of breath at home. Objective - Vital Signs Vital signs: Vital Signs Temp 98.4 F 03/31/19 04:00 Pulse 66 03/31/19 08:17 Resp 15 03/31/19 07:00 BP 112/46 03/31/19 07:00 Pulse Ox 95 03/31/19 07:00 Intake & Output 03/30/19 03/31/19 03/31/19 18:59 06:59 18:59 Intake Total 2235.04 2640.44 190.8 Output Total 975 1117 25 Balance 1260.04 1523.44 165.8 Weight 66.3 kg 72.8 kg Intake: IV 2235.04 2640.44 190.8 Aztreonam 2 gm In Sodium 200 Chloride 0.9% 100 ml @ 100 mls/hr IVPB Q8HR [facility] Rx#:[id number] Fat Emulsion 20% 250 ml @ 125.04 270.44 20.8 20.833 mls/hr IV Q24H [facility] Rx#:[id number] Fluconazole in NaCl,Iso- 100 Osm 200 mg In Saline 1 100ml.bag @ 100 mls/hr IVPB DAILY [facility] Rx#: [id number] Magnesium Sulfate-D5w Pmx 100 320 1 gm In Dextrose/Water 1 100ml.bag @ 100 mls/hr IVPB Q1H [facility] Rx#: [id number] Mvi, Adult No.4 with Vit 300 650 50 K 10 ml Trace (Conc-1Ml/ Dose) 1 ml In Amino Acid 4.25%-D10w+Lytes*E* 1,000 ml @ 50 mls/hr IV . [id number] [facility] Rx#:[id number] Sodium Chloride 0.9% 1, 960 1200 120 000 ml @ 120 mls/hr IV . Q8H20M [facility] Rx#:[id number] metroNIDAZOLE-NS PMX 500 100 200 mg In Saline 1 100ml.bag @ 100 mls/hr IVPB Q6H [facility] Rx#:[id number] Output: Drainage 350 345 Left Lower Abdomen 175 180 Left Upper Abdomen 175 165 Urine 625 772 25 Other: Voiding Method Indwelling Catheter Indwelling Catheter - Exam Vital Signs: I have reviewed the vital signs. GENERAL: Lethargic, not in any apparent distress Eyes: Pupils are equal round and reactive to light, clear conjunctiva Head: : Atraumatic external nose and ears, oropharyngeal mucosa is moist without lesions or exudates Neck: Symmetric, trachea midline, No thyromegaly, no masses or neck vain pulsation, no neck rigidity CVS: +S1/S2, No murmurs or gallops. Peripheral pulses 2+ and equal in all extremities. RESP: Unlabored respiratory effort. Clear to auscultation bilaterally. Abdomen: Abdominal binder, bowel sounds are decreased Musculoskeletal: Extremities w/o deformity, No cyanosis or clubbing, no joint swelling Skin: Warm, Dry. No rashes or lesions - Labs CBC & Chem 7: 03/31/19 05:10 03/31/19 05:10 Labs: Abnormal Lab Results - Last 24 Hours (Table) 03/30/19 03/30/19 03/30/19 Range/Units 03:11 13:41 13:43 RBC (3.80-5.40) m/uL Hgb (11.4-16.0) gm/dL Hct (34.0-46.0) % Neutrophils # (1.3-7.7) k/uL Lymphocytes # (1.0-4.8) k/uL PT 13.4 H (9.0-12.0) sec INR 1.3 H (<1.2) Potassium (3.5-5.1) mmol/L Chloride (98-107) mmol/L Carbon Dioxide (22-30) mmol/L BUN (7-17) mg/dL Glucose (74-99) mg/dL POC Glucose (mg/dL) 141 H (75-99) mg/dL Calcium (8.4-10.2) mg/dL Ionized Calcium Angela (4.5-5.3) mg/dL Phosphorus 2.4 L (2.5-4.5) mg/dL Magnesium (1.6-2.3) mg/dL Total Protein (6.3-8.2) g/dL Albumin (3.5-5.0) g/dL 03/30/19 03/30/19 03/30/19 Range/Units 13:43 17:51 23:12 RBC (3.80-5.40) m/uL Hgb (11.4-16.0) gm/dL Hct (34.0-46.0) % Neutrophils # (1.3-7.7) k/uL Lymphocytes # (1.0-4.8) k/uL PT (9.0-12.0) sec INR (<1.2) Potassium (3.5-5.1) mmol/L Chloride 122 H (98-107) mmol/L Carbon Dioxide 16 L (22-30) mmol/L BUN 24 H (7-17) mg/dL Glucose 133 H (74-99) mg/dL POC Glucose (mg/dL) 188 H 172 H (75-99) mg/dL Calcium 7.7 L (8.4-10.2) mg/dL Ionized Calcium Angela (4.5-5.3) mg/dL Phosphorus (2.5-4.5) mg/dL Magnesium 1.5 L (1.6-2.3) mg/dL Total Protein 4.1 L (6.3-8.2) g/dL Albumin 2.0 L (3.5-5.0) g/dL 03/31/19 03/31/19 03/31/19 Range/Units 05:10 05:10 06:18 RBC 3.19 L (3.80-5.40) m/uL Hgb 9.8 L (11.4-16.0) gm/dL Hct 31.5 L (34.0-46.0) % Neutrophils # 8.5 H (1.3-7.7) k/uL Lymphocytes # 0.7 L (1.0-4.8) k/uL PT (9.0-12.0) sec INR (<1.2) Potassium 3.3 L (3.5-5.1) mmol/L Chloride 122 H (98-107) mmol/L Carbon Dioxide 17 L (22-30) mmol/L BUN 27 H (7-17) mg/dL Glucose 147 H (74-99) mg/dL POC Glucose (mg/dL) 172 H (75-99) mg/dL Calcium 8.0 L (8.4-10.2) mg/dL Ionized Calcium Angela 5.5 H (4.5-5.3) mg/dL Phosphorus (2.5-4.5) mg/dL Magnesium (1.6-2.3) mg/dL Total Protein (6.3-8.2) g/dL Albumin (3.5-5.0) g/dL Microbiology - Last 24 Hours (Table) 03/30/19 06:21 Gram Stain - Preliminary Other - Other Wound Culture - Preliminary April albicans 03/29/19 19:48 Blood Culture - Preliminary Blood No Growth after 24 hours 03/30/19 06:21 Anaerobic Culture - Preliminary Peritoneal Fluid 03/29/19 15:57 Urine Culture - Preliminary Urine,Clean Catch Assessment and Plan Assessment: 1. Perforated duodenal ulcer Status post repair Continue care per general surgery Antibiotics per infectious disease PPI Supportive care PPN Increase activity as tolerated Avoidance of NSAIDs discussed with the patient 2. Non-STEMI Management per cardiology 3. Hypokalemia Replaced per protocol
[2019-03-31] MEDS: 1: AMINO ACID 4.25%-D10W+LYTES*E* 1,000 ML 2: MVI, ADULT NO.4 WITH VIT K 10 ML, TRACE ( IV SCH ×6 (09:55→21:34)
--- NOTE | 2019-03-31 09:56 | P.PN ---
Subjective Progress Note Date: 03/31/19 This is a 74-year-old female with history of hyperlipidemia. She has not followed with a retail director. Patient was apparently recently hospitalized for sepsis secondary to cellulitis of the lower back and discharged to rehab. Patient presented to the hospital due to abdominal pain in the right upper quadrant with nausea and vomiting. Apparently no bloody emesis or stools. No reported chest pain or difficulty breathing. Patient does have occasional cough with phlegm production. She has also had decreased oral intake. Patient was found to have pneumoperitoneum and suspected perforation. She is seen and followed by general surgery and infectious disease. Chest ray showed bilateral possible infiltrates consolidation, pleural effusion on the right lower lung. Patient's initial EKG had T-wave inversions over the lateral leads and elevated troponins suspicious for acute coronary syndrome. Heparin drip was not initiating due to concern for perforated ulcer. Patient has undergone exploratory laparotomy found to have perforated anterior duodenal ulcer and peritonitis. Antibiotics being managed by Dr. Mantilla. The patient is seen today in the intensive care unit. WBC initially 12.5-7.0, hemoglobin 10.3, CO2 19, BUN 35 and creatinine 1.00. Troponins 5.250, 5.120, 3.650. Chest x-ray this morning reveals infiltrate, aspiration or infectious pneumonitis. EKG reveals a sinus rhythm with anterior lateral ST changes suggestive of ischemia with no acute ST elevation. 03/31: Today, patient remains in the intensive care unit. She is moaning in pain but is more alert from yesterday. She is complaining of abdominal pain. Patient is unable to follow commands or answer questions. NG tube remains in place. General surgery did not clear yesterday for starting heparin drip yesterday but today will be started. Patient remains strict nothing by mouth and surgeon does not want any oral medications given at this time. Plan to start aspirin, Lopressor, atorvastatin once patient is cleared by general surgeon. Echocardiogram reveals EF of 35-40%, mild mitral regurgitation, mild tricuspid regurgitation. Physical exam: Gen: This is a 74-year-old female. Patient is resting in the ICU bed. Patient is moaning. Afebrile, heart rate 66, blood pressure 112/46, pulse ox 95 percent on 4 L nasal cannula HEENT: Head is atraumatic, normocephalic. Pupils equal, round. Sclerae is anicteric. Oral mucous membranes are moist. NG tube in place. NECK: No JVD. No lymphadenopathy. LUNGS: Clear to auscultation. No wheezes or rhonchi. No intercostal retractions. HEART: Regular rate and rhythm. No murmur. ABDOMEN: Soft. Abdominal binder in place. Wound VAC is in place for vertical wound, 2 SHAUNA drains. Gordon catheter draining shari urine. EXTREMITIES: No pedal edema. Dorsalis pedis +1 bilaterally. NEUROLOGICAL: Patient is awake, alert, moaning, patient unable to follow directions. No focal neural deficits. Assessment: Acute non-ST elevated myocardial infarction Pneumoperitoneum due to perforated anterior duodenal ulcer, peritonitis Bilateral pneumonia Previous history of sepsis Previous history of uterine cancer status post hysterectomy Diffuse osteoarthritis Severe dehydration with orthostatic hypotension and oliguria Hyperlipidemia Chronic anemia Plan: Patient will be started on heparin drip today Start aspirin 81 mg daily, Lopressor 25 mg twice daily, Lipitor 40 mg daily once patient is able to take oral medications. Patient is currently strict nothing by mouth. Patient may require heart catheterization at a later time to assess for coronary artery disease Continue Azactam and Diflucan per Dr. Mantilla Continue current wound care Further recommendations to follow based upon clinical course Nurse practitioner note has been reviewed, I agree with documented findings and plan of care. Patient was seen and examined. Objective - Vital Signs Vital signs: Vital Signs Temp 98.4 F 03/31/19 04:00 Pulse 66 03/31/19 08:17 Resp 15 03/31/19 07:00 BP 112/46 03/31/19 07:00 Pulse Ox 95 03/31/19 07:00 Intake & Output 03/30/19 03/31/19 03/31/19 18:59 06:59 18:59 Intake Total 2235.04 2640.44 190.8 Output Total 975 1117 25 Balance 1260.04 1523.44 165.8 Weight 66.3 kg 72.8 kg Intake: IV 2235.04 2640.44 190.8 Aztreonam 2 gm In Sodium 200 Chloride 0.9% 100 ml @ 100 mls/hr IVPB Q8HR [facility] Rx#:[id number] Fat Emulsion 20% 250 ml @ 125.04 270.44 20.8 20.833 mls/hr IV Q24H [facility] Rx#:[id number] Fluconazole in NaCl,Iso- 100 Osm 200 mg In Saline 1 100ml.bag @ 100 mls/hr IVPB DAILY [facility] Rx#: [id number] Magnesium Sulfate-D5w Pmx 100 320 1 gm In Dextrose/Water 1 100ml.bag @ 100 mls/hr IVPB Q1H [facility] Rx#: [id number] Mvi, Adult No.4 with Vit 300 650 50 K 10 ml Trace (Conc-1Ml/ Dose) 1 ml In Amino Acid 4.25%-D10w+Lytes*E* 1,000 ml @ 50 mls/hr IV . [id number] [facility] Rx#:[id number] Sodium Chloride 0.9% 1, 960 1200 120 000 ml @ 120 mls/hr IV . Q8H20M [facility] Rx#:[id number] metroNIDAZOLE-NS PMX 500 100 200 mg In Saline 1 100ml.bag @ 100 mls/hr IVPB Q6H [facility] Rx#:[id number] Output: Drainage 350 345 Left Lower Abdomen 175 180 Left Upper Abdomen 175 165 Urine 625 772 25 Other: Voiding Method Indwelling Catheter Indwelling Catheter - Labs CBC & Chem 7: 03/31/19 11:46 03/31/19 05:10 Labs: Abnormal Lab Results - Last 24 Hours (Table) 03/30/19 03/30/19 03/30/19 Range/Units 03:11 13:41 13:43 RBC (3.80-5.40) m/uL Hgb (11.4-16.0) gm/dL Hct (34.0-46.0) % Neutrophils # (1.3-7.7) k/uL Lymphocytes # (1.0-4.8) k/uL PT 13.4 H (9.0-12.0) sec INR 1.3 H (<1.2) Potassium (3.5-5.1) mmol/L Chloride (98-107) mmol/L Carbon Dioxide (22-30) mmol/L BUN (7-17) mg/dL Glucose (74-99) mg/dL POC Glucose (mg/dL) 141 H (75-99) mg/dL Calcium (8.4-10.2) mg/dL Ionized Calcium Angela (4.5-5.3) mg/dL Phosphorus 2.4 L (2.5-4.5) mg/dL Magnesium (1.6-2.3) mg/dL Total Protein (6.3-8.2) g/dL Albumin (3.5-5.0) g/dL 03/30/19 03/30/19 03/30/19 Range/Units 13:43 17:51 23:12 RBC (3.80-5.40) m/uL Hgb (11.4-16.0) gm/dL Hct (34.0-46.0) % Neutrophils # (1.3-7.7) k/uL Lymphocytes # (1.0-4.8) k/uL PT (9.0-12.0) sec INR (<1.2) Potassium (3.5-5.1) mmol/L Chloride 122 H (98-107) mmol/L Carbon Dioxide 16 L (22-30) mmol/L BUN 24 H (7-17) mg/dL Glucose 133 H (74-99) mg/dL POC Glucose (mg/dL) 188 H 172 H (75-99) mg/dL Calcium 7.7 L (8.4-10.2) mg/dL Ionized Calcium Angela (4.5-5.3) mg/dL Phosphorus (2.5-4.5) mg/dL Magnesium 1.5 L (1.6-2.3) mg/dL Total Protein 4.1 L (6.3-8.2) g/dL Albumin 2.0 L (3.5-5.0) g/dL 03/31/19 03/31/19 03/31/19 Range/Units 05:10 05:10 06:18 RBC 3.19 L (3.80-5.40) m/uL Hgb 9.8 L (11.4-16.0) gm/dL Hct 31.5 L (34.0-46.0) % Neutrophils # 8.5 H (1.3-7.7) k/uL Lymphocytes # 0.7 L (1.0-4.8) k/uL PT (9.0-12.0) sec INR (<1.2) Potassium 3.3 L (3.5-5.1) mmol/L Chloride 122 H (98-107) mmol/L Carbon Dioxide 17 L (22-30) mmol/L BUN 27 H (7-17) mg/dL Glucose 147 H (74-99) mg/dL POC Glucose (mg/dL) 172 H (75-99) mg/dL Calcium 8.0 L (8.4-10.2) mg/dL Ionized Calcium Angela 5.5 H (4.5-5.3) mg/dL Phosphorus (2.5-4.5) mg/dL Magnesium (1.6-2.3) mg/dL Total Protein (6.3-8.2) g/dL Albumin (3.5-5.0) g/dL Microbiology - Last 24 Hours (Table) 03/30/19 06:21 Gram Stain - Preliminary Other - Other Wound Culture - Preliminary April albicans 03/29/19 19:48 Blood Culture - Preliminary Blood No Growth after 24 hours 03/30/19 06:21 Anaerobic Culture - Preliminary Peritoneal Fluid 03/29/19 15:57 Urine Culture - Preliminary Urine,Clean Catch
[2019-03-31] MEDS: METOPROLOL TARTRATE 25 MG TAB PO SCH ×2 (10:44→19:49)
[2019-03-31] MEDS: NYSTATIN 100,000 UNIT/GM POWD 15 GM TOPICAL SCH ×3 (10:45→21:35)
[2019-03-31] MEDS ORDERED: HEPARIN SODIUM,PORCINE 5,000 UNIT/ML 1 ML VIAL IV PRN (11:20)
[2019-03-31] MEDS ORDERED: HEPARIN SODIUM,PORCINE 5,000 UNIT/ML 1 ML VIAL IV ONE (11:20)
--- NOTE | 2019-03-31 11:25 | P.PN ---
Progress Note - Text Progress Note Date: 03/31/19 The patient's postoperative day 1 from exploratory laparotomy and repair of duodenal ulcer. The nursing staff reports that she is less confused. On exam patient's vital signs are stable. Incision site is clean dry and intact. SHAUNA drain is mainly serosanguineous fluid. White count is 9.8. Hemoglobin is 9.8. Status post exposure laparotomy for perforated tic ulcer disease. Patient will continue nothing by mouth. She is scheduled for esophagram upper GI tomorrow.
[2019-03-31 11:39] LABS: Glucose,Whole Blood 186 mg/dL (75-99)
[2019-03-31 11:57] LABS: Basophils % (A) 0 %; Eosinophils # (A) 0.1 k/uL (0-0.7); Eosinophils % (A) 1 %; HCT 32.1 % (34.0-46.0); HGB 10.2 gm/dL (11.4-16.0); Hypochromasia Marked; Lymphocytes # (A) 0.6 k/uL (1.0-4.8); Lymphocytes % (A) 6 %; MCH 31.6 pg (25.0-35.0); MCHC 31.8 g/dL (31.0-37.0); MCV 99.5 fL (80.0-100.0); Macrocytosis Slight; Monocytes # (A) 0.3 k/uL (0-1.0); Monocytes % (A) 2 %; Neutrophils # (A) 9.4 k/uL (1.3-7.7); Neutrophils % (A) 90 %; Platelet Count 163 k/uL (150-450); Poikilocytosis Slight; RBC 3.22 m/uL (3.80-5.40); RDW 15.2 % (11.5-15.5); WBC 10.5 k/uL (3.8-10.6)
[2019-03-31 12:18] LABS: INR 1.1 (<1.2); Partial Thromboplastin Time 28.2 sec (22.0-30.0); Prothrombin Time 11.8 sec (9.0-12.0)
[2019-03-31] MEDS: FAT EMULSION 20% 250 ML IV SCH (12:26)
[2019-03-31] MEDS: HEPARIN SOD,PORK IN 0.45% NACL 25,000 UNIT in 0.45% NACL 1 250ML.BAG IV SCH (12:27)
--- NOTE | 2019-03-31 16:59 | PN ---
PROGRESS NOTE DATE OF SERVICE: 03/31/2019 REASON FOR FOLLOWUP: Secondary peritonitis from perforated duodenal ulcer. INTERVAL HISTORY: The patient is currently afebrile. The patient is hemodynamically stable, not requiring any pressor support. The patient's FiO2 is currently stable as well. The patient unable to provide any history. No vomiting or any diarrhea reported by the nursing staff. PHYSICAL EXAMINATION: Blood pressure is 101/75 with a pulse of 77, temperature 98, she is 95% on BiPAP. General description is an elderly female lying in bed in no distress. Respiratory system, unlabored breathing, decreased breath sounds in the base, with no wheeze. Heart S1, S2. Regular rate and rhythm. Abdomen soft, no tenderness. SHAUNA drainage is mostly serosanguineous secretion. Extremities: No edema of the feet. LABS: Hemoglobin 10.2 with white count 10.5. Abdominal culture with April albicans. Urine is showing April albicans. DIAGNOSTIC IMPRESSION AND PLAN: Secondary peritonitis from perforated peptic ulcer disease, status post operative repair. Patient is currently covered with Azactam and Diflucan. Plan is to continue. Will monitor clinical course closely. Continue supportive care. MMODL / IJN: [id number] /
[2019-03-31 17:02] LABS: Glucose,Whole Blood 176 mg/dL (75-99)
[2019-03-31] MEDS: ATORVASTATIN 40 MG TAB PO SCH (19:49)
[2019-03-31 21:24] LABS: ABG Base Excess -9.3 mmol/L; ABG HCO3 19 mmol/L (21-25); ABG Oxygen Saturation 99.4 % (94-97); ABG PCO2 48 mmHg (35-45); ABG PO2 181 mmHg (83-108); ABG TCO2 20 mmol/L (19-24); Allen Test Performed? Yes
[2019-03-31 23:01] LABS: ABG Base Excess -8.9 mmol/L; ABG HCO3 19 mmol/L (21-25); ABG Oxygen Saturation 93.7 % (94-97); ABG PCO2 48 mmHg (35-45); ABG PH 7.21 (7.35-7.45); ABG PO2 71 mmHg (83-108); ABG TCO2 21 mmol/L (19-24); Allen Test Performed? Yes
[2019-03-31 23:36] LABS: Glucose,Whole Blood 193 mg/dL (75-99)
[2019-04-01] MEDS: metroNIDAZOLE-NS PMX 500 MG in SALINE 1 100ML.BAG IVPB SCH ×4 (01:20→21:01)
[2019-04-01 05:09] LABS: Basophils % (A) 0 %; Eosinophils # (A) 0.1 k/uL (0-0.7); Eosinophils % (A) 1 %; HCT 31.1 % (34.0-46.0); HGB 9.6 gm/dL (11.4-16.0); Hypochromasia Marked; Lymphocytes # (A) 0.8 k/uL (1.0-4.8); Lymphocytes % (A) 7 %; MCHC 30.9 g/dL (31.0-37.0); MCV 100.6 fL (80.0-100.0); Macrocytosis Slight; Mean Platelet Volume 11.1; Monocytes # (A) 0.4 k/uL (0-1.0); Monocytes % (A) 3 %; Neutrophils % (A) 88 %; Platelet Count 169 k/uL (150-450); Poikilocytosis Slight; RBC 3.09 m/uL (3.80-5.40); RDW 15.1 % (11.5-15.5); WBC 11.4 k/uL (3.8-10.6)
[2019-04-01 05:14] LABS: Calcium 8.4 mg/dL (8.4-10.2); Magnesium 2.1 mg/dL (1.6-2.3); Phosphorus 3.2 mg/dL (2.5-4.5); Potassium 3.9 mmol/L (3.5-5.1); Total Bilirubin 0.4 mg/dL (0.2-1.3); Total Protein 4.1 g/dL (6.3-8.2)
[2019-04-01 05:44] LABS: Glucose,Whole Blood 188 mg/dL (75-99)
[2019-04-01] MEDS: INSULIN ASPART (NovoLOG) 100 UNIT/ML VIAL SQ SCH ×3 (05:57→18:12)
--- NOTE | 2019-04-01 07:18 | XR ---
EXAMINATION TYPE: XR chest 1V portable DATE OF EXAM: 04/01/2019 COMPARISON: 03/30/2019 HISTORY: Shortness of breath TECHNIQUE: Single frontal view of the chest is obtained. FINDINGS: Small bilateral pleural effusions and bibasilar airspace disease has slightly increased in the interim with increasing silhouetting of the hemidiaphragms. Cardiomediastinal silhouette is enla rged. And enteric tube has been satisfactorily placed in the interim. Generalized osseous demineraliz ation. Obscuration of the lung apices by the patient's chin. IMPRESSION: Increasing pleural effusions and bibasilar airspace disease (although pleural effusions remain small). Interval insertion of an appropriately placed enteric tube.
[2019-04-01] MEDS: HYDROmorphone 0.5 MG/0.5 ML SYRINGE IVP PRN ×3 (07:54→18:14)
[2019-04-01 08:04] LABS: ABG Base Excess -7.2 mmol/L; ABG HCO3 20 mmol/L (21-25); ABG Oxygen Saturation 88.8 % (94-97); ABG PCO2 48 mmHg (35-45); ABG PH 7.23 (7.35-7.45); ABG TCO2 22 mmol/L (19-24); Allen Test Performed? Yes
[2019-04-01 08:09] LABS: ABG PO2 54 mmHg (83-108)
[2019-04-01] MEDS: IPRATROPIUM-ALBUTEROL 3 ML NEB INHALATION SCH ×3 (08:13→19:16)
[2019-04-01 08:58] LABS: ABG Base Excess -6.9 mmol/L; ABG HCO3 21 mmol/L (21-25); ABG Oxygen Saturation 91.3 % (94-97); ABG PCO2 50 mmHg (35-45); ABG PH 7.23 (7.35-7.45); ABG PO2 61 mmHg (83-108); ABG TCO2 22 mmol/L (19-24)
[2019-04-01 09:00] LABS: Allen Test Performed? no
--- NOTE | 2019-04-01 09:02 | PCN ---
PROCEDURE NOTE PROCEDURE: Right radial arterial line placement. PREOPERATIVE DIAGNOSIS: Cardiogenic shock. POSTOPERATIVE DIAGNOSIS: Cardiogenic shock. ARTERIAL LINE PLACEMENT: Indications: Hemodynamic monitoring. A time-out was completed verifying correct patient, procedure, site, positioning, and implant(s) or special equipment if applicable. Wero's test was performed to ensure adequate perfusion. The patient's right wrist was prepped and draped in sterile fashion. 1% Lidocaine was used to anesthetize the area. An 18G Arrow arterial line was introduced into the right radial artery. The catheter was threaded over the guide wire and the needle was removed with appropriate pulsatile blood return. Blood loss was minimal. The catheter was then sutured in place to the skin and a sterile dressing applied. Perfusion to the extremity distal to the point of catheter insertion was checked and found to be adequate. The patient tolerated the procedure well and there were no complications. Procedure was tolerated very well. No immediate complications. The line was flushed. A good waveform was noted. Sterile dressing was applied by the nursing staff. MMODL / IJN: [id number] /
[2019-04-01] MEDS: AZTREONAM 2 GM in SODIUM CHLORIDE 0.9% 100 ML IVPB SCH ×2 (09:10→16:24)
[2019-04-01] MEDS: FUROSEMIDE 100 MG in SODIUM CHLORIDE 0.9% 90 ML IV SCH ×2 (09:10→17:18)
[2019-04-01] MEDS: FLUCONAZOLE IN NACL,ISO-OSM 200 MG in SALINE 1 100ML.BAG IVPB SCH (09:10)
[2019-04-01] MEDS: METOPROLOL TARTRATE 25 MG TAB PO SCH ×2 (09:11→21:20)
[2019-04-01] MEDS: PANTOPRAZOLE 40 MG/10 ML VIAL IV SCH ×2 (09:11→21:18)
[2019-04-01] MEDS: PERIGUARD TOPICAL SCH ×3 (09:22→18:13)
--- NOTE | 2019-04-01 09:54 | PN ---
PROGRESS NOTE Brooke Nielsen had a perforated duodenal ulcer, had a laparotomy. She also appears to have a combination of congestive heart failure and also respiratory acidosis with hypoxia. She has a non-ST elevation IA, congestive heart failure as well. Hemodynamically, she is fairly stable. Appears to be in some distress. Respiratory vanessa has been placed on BiPAP all night and she is being considered for possible intubation. Vitals are stable. Respiratory rate is elevated. JVD is evident, S1-S2 heard normally. Short systolic murmur is noted. Lungs reveal bilateral diminished air entry. Abdomen is soft. Lower extremities reveal diminished pulses. I am recommending that we place her on Lasix drip at 10 mg daily and discontinue IV push Lasix for her. She may also need further respiratory management that Dr. Gavin will be involved in. MMODL / IJN: [id number] /
--- NOTE | 2019-04-01 10:11 | P.PN ---
Subjective Progress Note Date: 04/01/19 oon 04/01/2019 on seeing the patient for a follow-up. I reviewed the events that led this patient to the operating room as the patient was found to have pneumoperitoneum and the patient was taken to the operating room and she was found to have a perforated duodenal ulcer and she underwent oversewing of the duodenal ulcer. Apparently she did well postop and she was extubated in the operating room and she was brought into the intensive care unit for further monitoring. Currently she is postop day #2 post expiratory laparotomy and repair of a duodenal perforation with a duodenal patch. Note that the patient overnight she became progressively more lethargic and obtunded and hypoxic. This morning she is on a BiPAP at a pressure of 14/6 cm of water with an FiO2 of 100%. The blood gases showed a pH of 7.22 with a pCO2 of 49 and pO2 of 60. The chest x-ray is consistent with acute pulmonary edema and this goes along with the aggressive fluid resuscitation and the patient had since admission as the patient is in a positive fluid balance of at least 8 L. She has cardiomyopathy with an ejection fraction of 30-35% on her most recent echocardiogram. Possibility of a pneumonia cannot be completely excluded. The current hemodynamics show that the patient is in normal sinus rhythm. Urine output is diminished and the patient was started to produce approximately 75 mL an hour on Lasix drip at the rate of 10 mg an hour. She is afebrile. The antibiotic coverage includes IV Diflucan 200 mg every 24 hours, IV aztreonam 2 g every 8 hours and metronidazole 500 mg every 6 hours. She was also started on PPN for nutritional support. This morning, she is unresponsive. She withdraws only to painful stimulation. She does not respond to any verbal stimulation. Seems to be slightly more comfortable on a BiPAP since Lasix drip was started. Family is to arrive at the bedside. We will need to discuss with them CODE STATUS to decide if she will need to be reintubated or not. On examination however, she has severe kyphoscoliosis of the thoracic spine and severe kyphosis of the neck and the cervical spine causing considerable amount of flexion of her neck. Objective - Vital Signs Vital signs: Vital Signs Temp 97.5 F L 04/01/19 08:00 Pulse 78 04/01/19 09:00 Resp 14 01/06/20 09:00 BP 138/58 04/01/19 08:00 Pulse Ox 89 L 04/01/19 09:00 Intake & Output 03/31/19 04/01/19 04/01/19 18:59 06:59 18:59 Intake Total 3123.68 1590.420 296 Output Total 1275 1040 300 Balance 1848.68 550.420 -4 Weight 75.7 kg Intake: IV 3123.68 1520.969 296 Amino Acid 4.25%-D10w+ 747 166 166 Lytes*E* 1,000 ml @ 83 mls/hr IV .BY DURATION [facility] Rx#:[id number] Aztreonam 2 gm In Sodium 200 100 Chloride 0.9% 100 ml @ 100 mls/hr IVPB Q8HR [facility] Rx#:[id number] Fat Emulsion 20% 250 ml @ 166.68 124.969 20.833 mls/hr IV Q24H [facility] Rx#:[id number] Fluconazole in NaCl,Iso- 100 100 100 Osm 200 mg In Saline 1 100ml.bag @ 100 mls/hr IVPB DAILY [facility] Rx#: [id number] Mvi, Adult No.4 with Vit 150 830 K 10 ml Trace (Conc-1Ml/ Dose) 1 ml In Amino Acid 4.25%-D10w+Lytes*E* 1,000 ml @ 50 mls/hr IV . [id number] [facility] Rx#:[id number] Potassium Chloride 10 meq 600 In Water For Injection 1 100ml.bag @ 100 mls/hr IVPB Q1HR [facility] Rx#: [id number] Sodium Chloride 0.9% 1, 960 100 30 000 ml @ 120 mls/hr IV . Q8H20M [facility] Rx#:[id number] metroNIDAZOLE-NS PMX 500 200 100 mg In Saline 1 100ml.bag @ 100 mls/hr IVPB Q6H [facility] Rx#:[id number] Intake, IV Titration 69.451 Amount Heparin Sod,Pork in 0.45% 69.451 NaCl 25,000 unit In 0.45 % NaCl 1 250ml.bag @ 12 UNITS/KG/HR 8.736 mls/hr IV .Q24H [facility] Rx#: [id number] Output: Drainage 150 80 Left Lower Abdomen 75 30 Left Upper Abdomen 75 50 Urine 1125 960 300 Other: Voiding Method Indwelling Catheter Indwelling Catheter ABP, PAP, CO, CI - Last Documented Arterial Blood Pressure 125/40 - Exam GENERAL EXAM: Alert, pleasant 74-year-old female patient, quite lethargic and struggling while given on a BiPAP at a pressure of 14/6 cm of water. She is also not responding to any verbal stimulation or commands. She is responding only to painful stimulation. EYES: Normal reaction of pupils, equal size. NOSE: NG tube in place. Clear with pink turbinates. THROAT: No erythema or exudates. NECK: No masses, no JVD. CHEST: significant chest wall deformity with severe kyphoscoliosis of the spine and severe cervical kyphosis which potentially may effect our ability to intubate the patient. Currently her neck is quite flexed LUNGS: breath sounds along with crackles in the mid and lower lung silva bilaterally CVS: S1 and S2 normal with no audible murmur, regular rhythm. ABDOMEN: Abdominal dressing in place. No hepatosplenomegaly, no bowel sounds, no guarding or rigidity. SPINE: extensive thoracic scoliosis/ deformity SKIN: No rashes ,Examination of the skin revealed no evidence of significant rashes, suspicious appearing nevi or other concerning lesions. CENTRAL NERVOUS SYSTEM: No focal deficits, plan the patient is unresponsive at this point in time and she withdraws only to painful stimulation. EXTREMITIES: There is peripheral edema. No clubbing, no cyanosis. Peripheral pulses are intact. - Labs CBC & Chem 7: 04/01/19 04:18 04/01/19 04:23 Labs: Abnormal Lab Results - Last 24 Hours (Table) 03/31/19 03/31/19 03/31/19 Range/Units 11:38 11:46 17:00 WBC (3.8-10.6) k/uL RBC 3.22 L (3.80-5.40) m/uL Hgb 10.2 L (11.4-16.0) gm/dL Hct 32.1 L (34.0-46.0) % MCV (80.0-100.0) fL MCHC (31.0-37.0) g/dL Neutrophils # 9.4 H (1.3-7.7) k/uL Lymphocytes # 0.6 L (1.0-4.8) k/uL APTT (22.0-30.0) sec ABG pH (7.35-7.45) ABG pCO2 (35-45) mmHg ABG pO2 (83-108) mmHg ABG HCO3 (21-25) mmol/L ABG O2 Saturation (94-97) % Chloride (98-107) mmol/L Carbon Dioxide (22-30) mmol/L BUN (7-17) mg/dL Creatinine (0.52-1.04) mg/dL Glucose (74-99) mg/dL POC Glucose (mg/dL) 186 H 176 H (75-99) mg/dL AST (14-36) U/L Total Protein (6.3-8.2) g/dL Albumin (3.5-5.0) g/dL 03/31/19 03/31/19 03/31/19 Range/Units 18:21 21:20 22:59 WBC (3.8-10.6) k/uL RBC (3.80-5.40) m/uL Hgb (11.4-16.0) gm/dL Hct (34.0-46.0) % MCV (80.0-100.0) fL MCHC (31.0-37.0) g/dL Neutrophils # (1.3-7.7) k/uL Lymphocytes # (1.0-4.8) k/uL APTT 80.4 H (22.0-30.0) sec ABG pH 7.20 L 7.21 L (7.35-7.45) ABG pCO2 48 H 48 H (35-45) mmHg ABG pO2 181 H 71 L (83-108) mmHg ABG HCO3 19 L 19 L (21-25) mmol/L ABG O2 Saturation 99.4 H 93.7 L (94-97) % Chloride (98-107) mmol/L Carbon Dioxide (22-30) mmol/L BUN (7-17) mg/dL Creatinine (0.52-1.04) mg/dL Glucose (74-99) mg/dL POC Glucose (mg/dL) (75-99) mg/dL AST (14-36) U/L Total Protein (6.3-8.2) g/dL Albumin (3.5-5.0) g/dL 03/31/19 04/01/19 04/01/19 Range/Units 23:34 04:18 04:18 WBC 11.4 H (3.8-10.6) k/uL RBC 3.09 L (3.80-5.40) m/uL Hgb 9.6 L (11.4-16.0) gm/dL Hct 31.1 L (34.0-46.0) % MCV 100.6 H (80.0-100.0) fL MCHC 30.9 L (31.0-37.0) g/dL Neutrophils # 10.0 H (1.3-7.7) k/uL Lymphocytes # 0.8 L (1.0-4.8) k/uL APTT 57.4 H (22.0-30.0) sec ABG pH (7.35-7.45) ABG pCO2 (35-45) mmHg ABG pO2 (83-108) mmHg ABG HCO3 (21-25) mmol/L ABG O2 Saturation (94-97) % Chloride (98-107) mmol/L Carbon Dioxide (22-30) mmol/L BUN (7-17) mg/dL Creatinine (0.52-1.04) mg/dL Glucose (74-99) mg/dL POC Glucose (mg/dL) 193 H (75-99) mg/dL AST (14-36) U/L Total Protein (6.3-8.2) g/dL Albumin (3.5-5.0) g/dL 04/01/19 04/01/19 04/01/19 Range/Units 04:23 05:43 08:00 WBC (3.8-10.6) k/uL RBC (3.80-5.40) m/uL Hgb (11.4-16.0) gm/dL Hct (34.0-46.0) % MCV (80.0-100.0) fL MCHC (31.0-37.0) g/dL Neutrophils # (1.3-7.7) k/uL Lymphocytes # (1.0-4.8) k/uL APTT (22.0-30.0) sec ABG pH 7.23 L (7.35-7.45) ABG pCO2 48 H (35-45) mmHg ABG pO2 54 L* (83-108) mmHg ABG HCO3 20 L (21-25) mmol/L ABG O2 Saturation 88.8 L (94-97) % Chloride 118 H (98-107) mmol/L Carbon Dioxide 19 L (22-30) mmol/L BUN 31 H (7-17) mg/dL Creatinine 1.21 H (0.52-1.04) mg/dL Glucose 177 H (74-99) mg/dL POC Glucose (mg/dL) 188 H (75-99) mg/dL AST 50 H (14-36) U/L Total Protein 4.1 L (6.3-8.2) g/dL Albumin 2.0 L (3.5-5.0) g/dL 04/01/19 Range/Units 08:55 WBC (3.8-10.6) k/uL RBC (3.80-5.40) m/uL Hgb (11.4-16.0) gm/dL Hct (34.0-46.0) % MCV (80.0-100.0) fL MCHC (31.0-37.0) g/dL Neutrophils # (1.3-7.7) k/uL Lymphocytes # (1.0-4.8) k/uL APTT (22.0-30.0) sec ABG pH 7.23 L (7.35-7.45) ABG pCO2 50 H (35-45) mmHg ABG pO2 61 L (83-108) mmHg ABG HCO3 (21-25) mmol/L ABG O2 Saturation 91.3 L (94-97) % Chloride (98-107) mmol/L Carbon Dioxide (22-30) mmol/L BUN (7-17) mg/dL Creatinine (0.52-1.04) mg/dL Glucose (74-99) mg/dL POC Glucose (mg/dL) (75-99) mg/dL AST (14-36) U/L Total Protein (6.3-8.2) g/dL Albumin (3.5-5.0) g/dL Microbiology - Last 24 Hours (Table) 03/29/19 19:48 Blood Culture - Preliminary Blood No Growth after 48 hours 03/29/19 15:57 Urine Culture - Final Urine,Clean Catch April albicans 03/30/19 06:21 Gram Stain - Preliminary Other - Other Wound Culture - Preliminary April albicans Assessment and Plan Plan: 1 Pneumoperitoneum status post exploratory laparotomy with duodenal patch. Postoperative day #2 2 acute hypoxic respiratory failure/hypercapnic respiratory failure with Patchy bibasilar infiltrate suspect aspiration /pneumonia versus fluid overload as the patient has been in significant positive fluid balance of 8 L over the past several days. 3 Acute BiPAP dependent respiratory failure. Despite being on a BiPAP at a pressure of 14/6 cm of water with an FiO2 of 100%, the patient continues to be hypoxic with a pO2 of 54 4 Acute exacerbation of systolic congestive heart failure with impaired left ventricular systolic function with ejection fraction 35-40% and the chest x-ray still consistent with fluid overload 5 Hyperlipidemia. 6 History of uterine cancer status post hysterectomy 7 Previous history of chronic tobacco dependence 8 extensive thoracic spine kyphoscoliosis with cervical kyphosis 9 non-STEMI currently on IV heparin 10 anemia, multifactorial without evidence of any blood loss. There is an acute anemia probably related to intraoperative blood loss and dilutional. plan 1 We'll discuss this patient's case with the daughter was arriving to the ICU. Ideally she would benefit from intubation/mechanical ventilation unless her baseline performance and functional status is poor and the family decided not to. She is going to be challenging in terms of intubation as the patient has severe thora cervical kyphoscoliosis with severe cervical kyphosis 2 Lasix drip at 10 mg an hour 3 BiPAP at a pressure of 14over 6 cm and the patient generating adequate tidal volume and the repeat blood gases will be needed 4 Artline insertion 5 keep NG tube in place and monitor the output 6 Keep the wound VAC in place 7 continue same antibiotic coverage with a combination of Diflucan aztreonam and Flagyl 8 condition is critical and high likelihood that the patient may require intubation mechanical ventilation and failed BiPAP treatment for now. 9 continue PPN keep the IV fluids at KVO 10 critically care evaluation more than 30 minutes Time with Patient: Greater than 30
[2019-04-01] MEDS: 1: MVI, ADULT NO.4 WITH VIT K 10 ML, TRACE (CONC-1ML/DOSE) 1 ML, SODIUM ACETATE 30 MEQ, IV SCH ×7 (11:21)
[2019-04-01 12:02] LABS: ABG Base Excess -6.7 mmol/L; ABG HCO3 20 mmol/L (21-25); ABG Oxygen Saturation 98.8 % (94-97); ABG PCO2 42 mmHg (35-45); ABG PH 7.29 (7.35-7.45); ABG PO2 127 mmHg (83-108); ABG TCO2 21 mmol/L (19-24)
[2019-04-01] MEDS: HEPARIN SOD,PORK IN 0.45% NACL 25,000 UNIT in 0.45% NACL 1 250ML.BAG IV SCH ×2 (12:08→21:01)
[2019-04-01] MEDS: NYSTATIN 100,000 UNIT/GM POWD 15 GM TOPICAL SCH ×3 (12:08→21:20)
[2019-04-01] MEDS: ASPIRIN 300 MG SUPP RECTAL SCH (12:09)
[2019-04-01 12:13] LABS: Glucose,Whole Blood 143 mg/dL (75-99)
[2019-04-01 12:19] LABS: Allen Test Performed? no
[2019-04-01] MEDS ORDERED: SPIRONOLACTONE 25 MG TAB PO SCH (14:15)
[2019-04-01] MEDS ORDERED: LISINOPRIL 5 MG TAB PO SCH (14:15)
[2019-04-01] MEDS: FAT EMULSION 20% 250 ML IV SCH (14:54)
[2019-04-01] MEDS: HYDROmorphone 1 MG/ML 1 ML SYRINGE IVP PRN (15:21)
--- NOTE | 2019-04-01 17:43 | P.PN ---
Subjective Progress Note Date: 04/01/19 Briefly, the patient is 74-year-old female with a PMH of hyperlipidemia and no known additional past medical history presented to the ED with complaints of abdominal pain, nausea, and vomiting. The patient was found to have pneumoperitoneum, community acquired pneumonia, ROCKY, along with metabolic encephalopathy upon admission. The patient was taken for surgery and was found to have a perforated duodenal ulcer. The patient was placed on IV antibiotics and infectious disease was consulted cardiology was also consulted due to EKG changes along with troponin elevations. The patient was extubated following surgery and continues to be in the ICU. The patient was seen and examined at the bedside @ 10 am. Delayed charting due to rounds. Overnight, the patient's respiratory status worsened and her oxygen requirements significantly increased. She was placed on BiPAP which he continues to require. FiO2 was tapered down from 100-80% recently. She groans and moves her extremities to verbal stimuli but is not following any commands. Objective - Vital Signs Vital signs: Vital Signs Temp 98.4 F 04/01/19 16:00 Pulse 87 04/01/19 17:00 Resp 10 L 04/01/19 17:00 BP 138/58 04/01/19 08:00 Pulse Ox 93 L 04/01/19 17:00 Intake & Output 03/31/19 04/01/19 04/01/19 18:59 06:59 18:59 Intake Total 3123.68 6090.669 4006.539 Output Total 1275 1040 2200 Balance 1848.68 550.420 -754.461 Weight 75.7 kg Intake: IV 3123.68 2349.362 0629 Amino Acid 4.25%-D10w+ 747 166 747 Lytes*E* 1,000 ml @ 83 mls/hr IV .[facility] Rx#:[id number] Aztreonam 2 gm In Sodium 200 100 100 Chloride 0.9% 100 ml @ 100 mls/hr IVPB Q8HR [facility] Rx#:[id number] Fat Emulsion 20% 250 ml @ 166.68 124.969 84 20.833 mls/hr IV Q24H [facility] Rx#:[id number] Fluconazole in NaCl,Iso- 100 100 100 Osm 200 mg In Saline 1 100ml.bag @ 100 mls/hr IVPB DAILY [facility] Rx#: [id number] Mvi, Adult No.4 with Vit 150 830 K 10 ml Trace (Conc-1Ml/ Dose) 1 ml In Amino Acid 4.25%-D10w+Lytes*E* 1,000 ml @ 50 mls/hr IV . [id number] [facility] Rx#:[id number] Potassium Chloride 10 meq 600 In Water For Injection 1 100ml.bag @ 100 mls/hr IVPB Q1HR [facility] Rx#: [id number] Sodium Chloride 0.9% 1, 960 100 100 000 ml @ 120 mls/hr IV . Q8H20M [facility] Rx#:[id number] metroNIDAZOLE-NS PMX 500 200 100 200 mg In Saline 1 100ml.bag @ 100 mls/hr IVPB Q6H [facility] Rx#:[id number] Intake, IV Titration 69.451 114.539 Amount Heparin Sod,Pork in 0.45% 69.451 114.539 NaCl 25,000 unit In 0.45 % NaCl 1 250ml.bag @ 12 UNITS/KG/HR 8.736 mls/hr IV .Q24H [facility] Rx#: [id number] Output: Drainage 150 80 Left Lower Abdomen 75 30 Left Upper Abdomen 75 50 Urine 6880 329 9579 Other: Voiding Method Indwelling Catheter Indwelling Catheter Indwelling Catheter ABP, PAP, CO, CI - Last Documented Arterial Blood Pressure 139/38 - Exam General: Elderly F, on BiPAP, appears stated age, normal weight HEENT: NC/AT, anicteric sclerae,no lid-lag, PERRL Cardiovascular: S1/S2 wnl, no murmurs, rubs, or gallops Lungs: Bilateral rales, no ronchi appreciated. On BiPAP Abdominal: Abdominal binder in place Skin: Warm, dry Extremities: No edema or contractures Psychiatric: Alert and oriented to person, place and time, appropriate affect Neuro: Only groaning to verbal stimuli, not following any commands or opening e yes - Labs CBC & Chem 7: 04/01/19 04:18 04/01/19 04:23 Labs: Abnormal Lab Results - Last 24 Hours (Table) 03/31/19 03/31/19 03/31/19 Range/Units 18:21 21:20 22:59 WBC (3.8-10.6) k/uL RBC (3.80-5.40) m/uL Hgb (11.4-16.0) gm/dL Hct (34.0-46.0) % MCV (80.0-100.0) fL MCHC (31.0-37.0) g/dL Neutrophils # (1.3-7.7) k/uL Lymphocytes # (1.0-4.8) k/uL APTT 80.4 H (22.0-30.0) sec ABG pH 7.20 L 7.21 L (7.35-7.45) ABG pCO2 48 H 48 H (35-45) mmHg ABG pO2 181 H 71 L (83-108) mmHg ABG HCO3 19 L 19 L (21-25) mmol/L ABG O2 Saturation 99.4 H 93.7 L (94-97) % Chloride (98-107) mmol/L Carbon Dioxide (22-30) mmol/L BUN (7-17) mg/dL Creatinine (0.52-1.04) mg/dL Glucose (74-99) mg/dL POC Glucose (mg/dL) (75-99) mg/dL AST (14-36) U/L Total Protein (6.3-8.2) g/dL Albumin (3.5-5.0) g/dL 03/31/19 04/01/19 04/01/19 Range/Units 23:34 04:18 04:18 WBC 11.4 H (3.8-10.6) k/uL RBC 3.09 L (3.80-5.40) m/uL Hgb 9.6 L (11.4-16.0) gm/dL Hct 31.1 L (34.0-46.0) % MCV 100.6 H (80.0-100.0) fL MCHC 30.9 L (31.0-37.0) g/dL Neutrophils # 10.0 H (1.3-7.7) k/uL Lymphocytes # 0.8 L (1.0-4.8) k/uL APTT 57.4 H (22.0-30.0) sec ABG pH (7.35-7.45) ABG pCO2 (35-45) mmHg ABG pO2 (83-108) mmHg ABG HCO3 (21-25) mmol/L ABG O2 Saturation (94-97) % Chloride (98-107) mmol/L Carbon Dioxide (22-30) mmol/L BUN (7-17) mg/dL Creatinine (0.52-1.04) mg/dL Glucose (74-99) mg/dL POC Glucose (mg/dL) 193 H (75-99) mg/dL AST (14-36) U/L Total Protein (6.3-8.2) g/dL Albumin (3.5-5.0) g/dL 04/01/19 04/01/19 04/01/19 Range/Units 04:23 05:43 08:00 WBC (3.8-10.6) k/uL RBC (3.80-5.40) m/uL Hgb (11.4-16.0) gm/dL Hct (34.0-46.0) % MCV (80.0-100.0) fL MCHC (31.0-37.0) g/dL Neutrophils # (1.3-7.7) k/uL Lymphocytes # (1.0-4.8) k/uL APTT (22.0-30.0) sec ABG pH 7.23 L (7.35-7.45) ABG pCO2 48 H (35-45) mmHg ABG pO2 54 L* (83-108) mmHg ABG HCO3 20 L (21-25) mmol/L ABG O2 Saturation 88.8 L (94-97) % Chloride 118 H (98-107) mmol/L Carbon Dioxide 19 L (22-30) mmol/L BUN 31 H (7-17) mg/dL Creatinine 1.21 H (0.52-1.04) mg/dL Glucose 177 H (74-99) mg/dL POC Glucose (mg/dL) 188 H (75-99) mg/dL AST 50 H (14-36) U/L Total Protein 4.1 L (6.3-8.2) g/dL Albumin 2.0 L (3.5-5.0) g/dL 04/01/19 04/01/19 04/01/19 Range/Units 08:55 11:58 12:11 WBC (3.8-10.6) k/uL RBC (3.80-5.40) m/uL Hgb (11.4-16.0) gm/dL Hct (34.0-46.0) % MCV (80.0-100.0) fL MCHC (31.0-37.0) g/dL Neutrophils # (1.3-7.7) k/uL Lymphocytes # (1.0-4.8) k/uL APTT (22.0-30.0) sec ABG pH 7.23 L 7.29 L (7.35-7.45) ABG pCO2 50 H (35-45) mmHg ABG pO2 61 L 127 H (83-108) mmHg ABG HCO3 20 L (21-25) mmol/L ABG O2 Saturation 91.3 L 98.8 H (94-97) % Chloride (98-107) mmol/L Carbon Dioxide (22-30) mmol/L BUN (7-17) mg/dL Creatinine (0.52-1.04) mg/dL Glucose (74-99) mg/dL POC Glucose (mg/dL) 143 H (75-99) mg/dL AST (14-36) U/L Total Protein (6.3-8.2) g/dL Albumin (3.5-5.0) g/dL Microbiology - Last 24 Hours (Table) 03/30/19 06:21 Anaerobic Culture - Preliminary Peritoneal Fluid 03/30/19 06:21 Gram Stain - Final Other - Other Wound Culture - Final April albicans 03/29/19 19:48 Blood Culture - Preliminary Blood No Growth after 48 hours 03/29/19 15:57 Urine Culture - Final Urine,Clean Catch April albicans Assessment and Plan Plan: Acute hypoxic respiratory failure -Likely secondary to fluid overload -On Lasix infusion -Cardiology service following Perforated duodenal ulcer, status post surgical repair -As per general surgery recommendations -Continue with antibiotics as per infectious disease -NG tube in place -Continue with PPIs Community acquired pneumonia -Infectious disease following -Continue with antibiotics NSTEMI -As per the cardiology service Severe protein calorie malnutrition -Dietitian consult Leukocytosis -Likely secondary to acute distress -Monitor for now Normocytic anemia -Likely due to perforated ulcer Hypokalemia -Resolved ROCKY -Monitor BMP
[2019-04-01 17:58] LABS: Glucose,Whole Blood 129 mg/dL (75-99)
--- NOTE | 2019-04-01 20:05 | PN ---
PROGRESS NOTE DATE OF SERVICE: 04/01/2019. REASON FOR FOLLOWUP VISIT: Secondary peritonitis from perforated gastric ulcer. INTERVAL HISTORY: The patient is currently afebrile. The patient did have respiratory distress requiring A-BiPAP. She is hemodynamically stable not requiring a pressor support. No vomiting or diarrhea reported by the nursing staff. The patient herself was unable to provide any history. PHYSICAL EXAMINATION: Blood pressure 139/38 with a pulse of 87, temperature 98.4. She is 93% on BiPAP. General description is an elderly female lying in bed in no distress. Respiratory system: Unlabored breathing. Decreased intensity breath sounds. No wheeze. Heart S1, S2. Regular rate and rhythm. Abdomen soft. No tenderness. LABS: Hemoglobin 9.6, white count 11.4, BUN of 31, creatinine 1.21. Abdominal cultures with April albicans. DIAGNOSTIC IMPRESSION AND PLAN: Patient with a perforated duodenal ulcer status post laparotomy and operative repair of the same. The patient's abdominal culture has been mostly April. Patient is covered with Azactam, Flagyl and Diflucan. We will monitor clinical course closely. Family at the bedside. Questions and concerns were answered. MMODL / IJN: [id number] /
[2019-04-01 21:09] LABS: ABG HCO3 23 mmol/L (21-25); ABG Oxygen Saturation 99.4 % (94-97); ABG PCO2 47 mmHg (35-45); ABG PH 7.29 (7.35-7.45); ABG PO2 141 mmHg (83-108); ABG TCO2 24 mmol/L (19-24); Allen Test Performed? Yes
[2019-04-01] MEDS: ATORVASTATIN 40 MG TAB PO SCH (21:20)
[2019-04-02 00:04] LABS: Glucose,Whole Blood 219 mg/dL (75-99)
[2019-04-02] MEDS: HYDROmorphone 0.5 MG/0.5 ML SYRINGE IVP PRN (00:08)
[2019-04-02] MEDS: INSULIN ASPART (NovoLOG) 100 UNIT/ML VIAL SQ SCH ×2 (00:09→06:55)
[2019-04-02] MEDS: AZTREONAM 2 GM in SODIUM CHLORIDE 0.9% 100 ML IVPB SCH (00:09)
[2019-04-02] MEDS: metroNIDAZOLE-NS PMX 500 MG in SALINE 1 100ML.BAG IVPB SCH (02:48)
[2019-04-02] MEDS: 1: MVI, ADULT NO.4 WITH VIT K 10 ML, TRACE (CONC-1ML/DOSE) 1 ML, SODIUM ACETATE 30 MEQ, IV SCH ×7 (02:48)
[2019-04-02] MEDS: FUROSEMIDE 100 MG in SODIUM CHLORIDE 0.9% 90 ML IV SCH (02:52)
[2019-04-02 04:19] LABS: ABG Base Excess -0.7 mmol/L; ABG HCO3 25 mmol/L (21-25); ABG Oxygen Saturation 87.6 % (94-97); ABG PCO2 49 mmHg (35-45); ABG PH 7.32 (7.35-7.45); ABG TCO2 27 mmol/L (19-24); Allen Test Performed? Yes
[2019-04-02 04:23] LABS: ABG PO2 50 mmHg (83-108)
[2019-04-02 04:28] VITALS: TEMP 98.7
[2019-04-02 05:50] LABS: Basophils # (A) 0.1 k/uL (0-0.2); Basophils % (A) 1 %; Eosinophils # (A) 0.1 k/uL (0-0.7); Eosinophils % (A) 1 %; HCT 30.6 % (34.0-46.0); HGB 10.1 gm/dL (11.4-16.0); Hypochromasia Marked; Lymphocytes # (A) 0.8 k/uL (1.0-4.8); Lymphocytes % (A) 6 %; MCH 32.5 pg (25.0-35.0); MCHC 33.1 g/dL (31.0-37.0); MCV 98.3 fL (80.0-100.0); Macrocytosis Slight; Mean Platelet Volume 10.5; Monocytes # (A) 0.5 k/uL (0-1.0); Monocytes % (A) 4 %; Neutrophils # (A) 10.9 k/uL (1.3-7.7); Neutrophils % (A) 88 %; Platelet Count 177 k/uL (150-450); Poikilocytosis Moderate; RBC 3.11 m/uL (3.80-5.40); RDW 15.4 % (11.5-15.5); WBC 12.5 k/uL (3.8-10.6)
[2019-04-02 06:07] LABS: Ionized Calcium 5.4 mg/dL (4.5-5.3)
[2019-04-02] MEDS: HYDROmorphone 1 MG/ML 1 ML SYRINGE IVP PRN (06:07)
[2019-04-02 06:27] LABS: Calcium 8.4 mg/dL (8.4-10.2); Magnesium 1.9 mg/dL (1.6-2.3); Phosphorus 2.6 mg/dL (2.5-4.5); Potassium 2.9 mmol/L (3.5-5.1)
[2019-04-02 06:38] LABS: Glucose,Whole Blood 203 mg/dL (75-99)
[2019-04-02] MEDS: POTASSIUM CHLORIDE 20 MEQ in WATER FOR INJECTION 1 100ML.BAG IVPB SCH ×3 (06:56→10:53)
[2019-04-02] MEDS: IPRATROPIUM-ALBUTEROL 3 ML NEB INHALATION SCH (07:18)
--- NOTE | 2019-04-02 08:55 | P.PN ---
Subjective Progress Note Date: 04/02/19 oon 04/01/2019 on seeing the patient for a follow-up. I reviewed the events that led this patient to the operating room as the patient was found to have pneumoperitoneum and the patient was taken to the operating room and she was found to have a perforated duodenal ulcer and she underwent oversewing of the duodenal ulcer. Apparently she did well postop and she was extubated in the operating room and she was brought into the intensive care unit for further monitoring. Currently she is postop day #2 post expiratory laparotomy and repair of a duodenal perforation with a duodenal patch. Note that the patient overnight she became progressively more lethargic and obtunded and hypoxic. This morning she is on a BiPAP at a pressure of 14/6 cm of water with an FiO2 of 100%. The blood gases showed a pH of 7.22 with a pCO2 of 49 and pO2 of 60. The chest x-ray is consistent with acute pulmonary edema and this goes along with the aggressive fluid resuscitation and the patient had since admission as the patient is in a positive fluid balance of at least 8 L. She has cardiomyopathy with an ejection fraction of 30-35% on her most recent echocardiogram. Possibility of a pneumonia cannot be completely excluded. The current hemodynamics show that the patient is in normal sinus rhythm. Urine output is diminished and the patient was started to produce approximately 75 mL an hour on Lasix drip at the rate of 10 mg an hour. She is afebrile. The antibiotic coverage includes IV Diflucan 200 mg every 24 hours, IV aztreonam 2 g every 8 hours and metronidazole 500 mg every 6 hours. She was also started on PPN for nutritional support. This morning, she is unresponsive. She withdraws only to painful stimulation. She does not respond to any verbal stimulation. Seems to be slightly more comfortable on a BiPAP since Lasix drip was started. Family is to arrive at the bedside. We will need to discuss with them CODE STATUS to decide if she will need to be reintubated or not. On examination however, she has severe kyphoscoliosis of the thoracic spine and severe kyphosis of the neck and the cervical spine causing considerable amount of flexion of her neck. On today's evaluation of 04/02/2019 the patient is being seen for a follow-up and she is postop day #3 following duodenal perforation and repair of a ulcerated/perforated duodenum with a duodenal patch. Unfortunately, she is doing poorly. This morning on a BiPAP pressure of 14/6 cm of water. Her blood gases from this morning showed a pO2 in the 50 with a pH of 7.32 with a pCO2 of 49. Based on that she was brought up to 5 1200%. Her current oxygen 8435%. She is having agonal breathing. She is working on her breathing and using excessive muscle breathing despite being on a BiPAP and despite generating tidal volume in the range of 450-500. She is tachycardic and the heart rate is in the 120s sinus rhythm. She is not responsive at this point in time. She is third spacing and she has wheezing of fluid from her. She is on Lasix drip which is producing approximately 4 L of urine output over the past 24 hours in a negative fluid balance is in order of 1.5 L. She is on broad-spectrum antibiotics. She is on PPN for nutritional support. Abdominal is unchanged compared to yesterday. There is a wound VAC in place and the SHAUNA drains show minimal amount of output. Nevertheless, the patient is in obvious respiratory failure and she has failed BiPAP treatment. Her CODE STATUS is DNR/DNI and the patient and the family are not is living intubation. As mentioned earlier, the patient has severe kyphoscoliosis of the thoracic and the cervical spine. The patient has also congestion heart failure with an ejection fraction of 30-35%. A repeat x- ray from today was not done. She remains on the same antibiotic coverage. She does groan and moan to painful stimulation and she would dose. She is unable to communicate at this point in time. She is able to keep the full face BiPAP mask on. Mucous membranes are quite dry in her mouth. Objective - Vital Signs Vital signs: Vital Signs Temp 98.7 F 04/02/19 04:00 Pulse 112 H 04/02/19 07:34 Resp 16 04/02/19 07:00 BP 126/49 04/02/19 07:00 Pulse Ox 88 L 04/02/19 07:00 Intake & Output 04/01/19 04/02/19 04/02/19 18:59 06:59 18:59 Intake Total 3966.908 4292.338 93 Output Total 2480 2355 150 Balance -849.128 -610.662 -57 Weight 72.6 kg Intake: IV 1435 1584 93 0.9 Normal Saline 120 10 Amino Acid 4.25%-D10w+ 830 996 83 Lytes*E* 1,000 ml @ 83 mls/hr IV .BY [facility] Rx#:[id number] Aztreonam 2 gm In Sodium 100 100 Chloride 0.9% 100 ml @ 100 mls/hr IVPB Q8HR [facility] Rx#:[id number] Fat Emulsion 20% 250 ml @ 105 168 20.833 mls/hr IV Q24H [facility] Rx#:[id number] Fluconazole in NaCl,Iso- 100 Osm 200 mg In Saline 1 100ml.bag @ 100 mls/hr IVPB DAILY [facility] Rx#: [id number] Sodium Chloride 0.9% 1, 100 000 ml @ 120 mls/hr IV . Q8H20M [facility] Rx#:[id number] metroNIDAZOLE-NS PMX 500 200 200 mg In Saline 1 100ml.bag @ 100 mls/hr IVPB Q6H [facility] Rx#:[id number] Intake, IV Titration 195.872 160.338 Amount Furosemide 100 mg In 81.333 95.667 Sodium Chloride 0.9% 90 ml @ 10 MG/HR 10 mls/hr IV .Q10H [facility] Rx#: [id number] Heparin Sod,Pork in 0.45% 114.539 64.671 NaCl 25,000 unit In 0.45 % NaCl 1 250ml.bag @ 12 UNITS/KG/HR 8.736 mls/hr IV .Q24H [facility] Rx#: [id number] Output: Drainage 100 Left Lower Abdomen 50 Left Upper Abdomen 50 Urine 2480 2255 150 Other: Voiding Method Indwelling Catheter Indwelling Catheter ABP, PAP, CO, CI - Last Documented Arterial Blood Pressure 160/43 - Exam GENERAL EXAM: Alert, pleasant 74-year-old female patient, quite lethargic and struggling while given on a BiPAP at a pressure of 14/6 cm of water. The patient on FiO2 of 100%. She is utilizing a full face mask. She is also not responding to any verbal stimulation or commands. She is responding only to painful stimulation. EYES: Normal reaction of pupils, equal size. NOSE: NG tube in place. Clear with pink turbinates. THROAT: No erythema or exudates. NECK: No masses, no JVD. CHEST: significant chest wall deformity with severe kyphoscoliosis of the spine and severe cervical kyphosis which potentially may effect our ability to intub ate the patient. Currently her neck is quite flexed LUNGS: breath sounds along with crackles in the mid and lower lung silva bilaterally CVS: S1 and S2 normal with no audible murmur, regular rhythm. ABDOMEN: Abdominal dressing in place. No hepatosplenomegaly, no bowel sounds, no guarding or rigidity. SPINE: extensive thoracic scoliosis/ deformity SKIN: No rashes ,Examination of the skin revealed no evidence of significant rashes, suspicious appearing nevi or other concerning lesions. CENTRAL NERVOUS SYSTEM: No focal deficits, plan the patient is unresponsive at this point in time and she withdraws only to painful stimulation. EXTREMITIES: There is peripheral edema. The patient is having fluid seeping from the skin related to her increased erythema in third spacing No clubbing, no cyanosis. Peripheral pulses are intact. - Labs CBC & Chem 7: 04/02/19 05:40 04/02/19 05:40 Labs: Abnormal Lab Results - Last 24 Hours (Table) 04/01/19 04/01/19 04/01/19 Range/Units 08:55 11:58 12:11 WBC (3.8-10.6) k/uL RBC (3.80-5.40) m/uL Hgb (11.4-16.0) gm/dL Hct (34.0-46.0) % Neutrophils # (1.3-7.7) k/uL Lymphocytes # (1.0-4.8) k/uL APTT (22.0-30.0) sec ABG pH 7.23 L 7.29 L (7.35-7.45) ABG pCO2 50 H (35-45) mmHg ABG pO2 61 L 127 H (83-108) mmHg ABG HCO3 20 L (21-25) mmol/L ABG Total CO2 (19-24) mmol/L ABG O2 Saturation 91.3 L 98.8 H (94-97) % Potassium (3.5-5.1) mmol/L Chloride (98-107) mmol/L BUN (7-17) mg/dL Creatinine (0.52-1.04) mg/dL Glucose (74-99) mg/dL POC Glucose (mg/dL) 143 H (75-99) mg/dL Ionized Calcium Angela (4.5-5.3) mg/dL 04/01/19 04/01/19 04/02/19 Range/Units 17:56 21:01 00:02 WBC (3.8-10.6) k/uL RBC (3.80-5.40) m/uL Hgb (11.4-16.0) gm/dL Hct (34.0-46.0) % Neutrophils # (1.3-7.7) k/uL Lymphocytes # (1.0-4.8) k/uL APTT (22.0-30.0) sec ABG pH 7.29 L (7.35-7.45) ABG pCO2 47 H (35-45) mmHg ABG pO2 141 H (83-108) mmHg ABG HCO3 (21-25) mmol/L ABG Total CO2 (19-24) mmol/L ABG O2 Saturation 99.4 H (94-97) % Potassium (3.5-5.1) mmol/L Chloride (98-107) mmol/L BUN (7-17) mg/dL Creatinine (0.52-1.04) mg/dL Glucose (74-99) mg/dL POC Glucose (mg/dL) 129 H 219 H (75-99) mg/dL Ionized Calcium Angela (4.5-5.3) mg/dL 04/02/19 04/02/19 04/02/19 Range/Units 04:15 05:40 05:40 WBC 12.5 H (3.8-10.6) k/uL RBC 3.11 L (3.80-5.40) m/uL Hgb 10.1 L (11.4-16.0) gm/dL Hct 30.6 L (34.0-46.0) % Neutrophils # 10.9 H (1.3-7.7) k/uL Lymphocytes # 0.8 L (1.0-4.8) k/uL APTT (22.0-30.0) sec ABG pH 7.32 L (7.35-7.45) ABG pCO2 49 H (35-45) mmHg ABG pO2 50 L* (83-108) mmHg ABG HCO3 (21-25) mmol/L ABG Total CO2 27 H (19-24) mmol/L ABG O2 Saturation 87.6 L (94-97) % Potassium 2.9 L (3.5-5.1) mmol/L Chloride 114 H (98-107) mmol/L BUN 32 H (7-17) mg/dL Creatinine 1.12 H (0.52-1.04) mg/dL Glucose 197 H (74-99) mg/dL POC Glucose (mg/dL) (75-99) mg/dL Ionized Calcium Angela 5.4 H (4.5-5.3) mg/dL 04/02/19 04/02/19 Range/Units 05:40 06:35 WBC (3.8-10.6) k/uL RBC (3.80-5.40) m/uL Hgb (11.4-16.0) gm/dL Hct (34.0-46.0) % Neutrophils # (1.3-7.7) k/uL Lymphocytes # (1.0-4.8) k/uL APTT 51.3 H (22.0-30.0) sec ABG pH (7.35-7.45) ABG pCO2 (35-45) mmHg ABG pO2 (83-108) mmHg ABG HCO3 (21-25) mmol/L ABG Total CO2 (19-24) mmol/L ABG O2 Saturation (94-97) % Potassium (3.5-5.1) mmol/L Chloride (98-107) mmol/L BUN (7-17) mg/dL Creatinine (0.52-1.04) mg/dL Glucose (74-99) mg/dL POC Glucose (mg/dL) 203 H (75-99) mg/dL Ionized Calcium Angela (4.5-5.3) mg/dL Microbiology - Last 24 Hours (Table) 03/29/19 19:48 Blood Culture - Preliminary Blood No Growth after 72 hours 03/30/19 06:21 Anaerobic Culture - Preliminary Peritoneal Fluid 03/30/19 06:21 Gram Stain - Final Other - Other Wound Culture - Final April albicans Assessment and Plan Plan: 1 Pneumoperitoneum status post exploratory laparotomy with duodenal patch. Postoperative day #3 2 acute hypoxic respiratory failure/hypercapnic respiratory failure with Patchy bibasilar infiltrate suspect aspiration /pneumonia versus fluid overload as the patient has been in significant positive fluid balance of 8 L over the past several days. The patient was subjected to aggressive diuresis yesterday with a Lasix drip. She denied negative fluid balance of 1.5 L. Nevertheless, she continued to be in significant respiratory distress and earlier this morning she is having agonal breathing and using excessive muscle breathing and she also has developed worsening hypoxemia with FiO2 has been brought up to 100% keeping the rest of vent settings unchanged with a BiPAP of 14/6 cm of water. 3 Acute BiPAP dependent respiratory failure. Despite being on a BiPAP at a pressure of 14/6 cm of water with an FiO2 of 100%, 4 Acute exacerbation of systolic congestive heart failure with impaired left ventricular systolic function with ejection fraction 35-40% and the chest x-ray still consistent with fluid overload 5 Hyperlipidemia. 6 History of uterine cancer status post hysterectomy 7 Previous history of chronic tobacco dependence 8 extensive thoracic spine kyphoscoliosis with cervical kyphosis 9 non-STEMI currently on IV heparin 10 anemia, multifactorial without evidence of any blood loss. There is an acute anemia probably related to intraoperative blood loss and dilutional. plan 1 BiPAP at a setting for now 2 DNR/DNI CODE STATUS and no intubation will be offered based on previous d iscussion with the family 3 continue Lasix drip 4 continue the rest of the supportive care including antibiotics, diuretics, PPN 5 family will be arriving to the hospital soon and I'm going to recommend comfort care measures on this patient. She will obviously fail her breathing with the next few hours. Prognosis poor. This will be a mortality and I would recommend comfort care measures. 6 critically care evaluation more than 30 minutes Time with Patient: Greater than 30
--- NOTE | 2019-04-02 08:56 | P.PN ---
Progress Note - Text Progress Note Date: 04/01/19 The patient is currently on BiPAP. She has restrictive failure secondary to atelectasis/pneumonia versus fluid overload. Patient has been started on Lasix. On exam her abdomen is soft. Incision site is clean dry tach. Patient is status post repair of duodenal ulcer. The patient will have her upper GI performed when she is stable. She may be reintubated today.
[2019-04-02] MEDS ORDERED: DRY MOUTH SPRAY 44.3 SPRAY/44.3 ML SPRAY MUCOUS MEM PRN (09:33)
[2019-04-02] MEDS ORDERED: MORPHINE SULFATE 2 MG/ML SYRINGE IV PRN (09:33)
[2019-04-02] MEDS ORDERED: MORPHINE SULFATE (100 MG/2 ML) 100 MG in SODIUM CHLORIDE 0.9% 100 ML IV SCH (09:45)
[2019-04-02] MEDS ORDERED: SCOPOLAMINE 1.5MG/72HR PATCH TRANSDERM SCH (10:00)
[2019-04-02 10:11] VITALS: BMI 27.4
[2019-04-02] MEDS ORDERED: ATROPINE OPHTH SOLN 1% 5ML BTL SUBLINGUAL PRN (10:18)
[2019-04-02 11:12] VITALS: BP 114/50; PULSE 121; RESP 18
--- NOTE | 2019-04-02 14:31 | P.DS ---
Providers Date of admission: 03/29/19 21:04 Expected date of discharge: 04/02/19 Attending physician: Giles Keen MD Consults: 03/30/19 01:46 Consult Physician Routine Consulting Provider: Miguel Angel Smith Consult Reason/Comments: lateral ischemic changes on EKG, elevated trop Do you want consulting provider notified?: Yes, Notify in am 03/30/19 08:05 Consult Physician Routine Consulting Provider: Nehemiah Mantilla Consult Reason/Comments: Antibiotic management, gastric perf Do you want consulting provider notified?: Yes Primary care physician: Stated None Hospital Course: Briefly, the patient is 74-year-old female with a PMH of hyperlipidemia and no known additional past medical history presented to the ED with complaints of abdominal pain, nausea, and vomiting. The patient was found to have pneumoperitoneum, community acquired pneumonia, ROCKY, along with metabolic encephalopathy upon admission. The patient was taken for surgery and was found to have a perforated duodenal ulcer. The patient was placed on IV antibiotics and infectious disease was consulted. Cardiology was also consulted due to EKG changes along with troponin elevations. The patient reportedly did well post- op, was extubated in the OR and was brought to the MICU. Cardiology diagnosed the patient with NSTEMI and the patient was started on Heparin infusion. ID recommended Azactam and Diflucan. She underwent an echocardiogram on 04/01/19, which revealed LFEF 35-40%. On 04/01/19, the patient worsened overnight and became progressively lethargic and hypoxic. The patient's CXR revealed fluid overload and her ABG showed pH of 7.22, pCO2 of 49, and pO2 60. The patient was also 8 L positive in light of her fluid resuscitation. The patient was started on Lasix infusion with adequate urine output and placed on BiPAP. On 04/02/19, the patient progressively worsened with worsening hypoxia while on BiPAP. The case was discussed with the patient's family at the bedside who noted that they wished f or her to be made comfort-care. The patient was placed on morphine infusion and her BiPAP was removed as per family's request. The patient at 11:46 am on 04/02/19. Discharge diagnosis: Pneumopertioneum secondary to perforated duodenal ulcer status post exploratory laparotomy with duodenal patch; acute hypoxic and hypercapnic respiratory failure; NSTEMI; Community acquired pneumonia; Severe protein calorie malnutrition; thoracic spine kyphoscoliosis; acute systolic CHF exacerbation; anemia; HLD, hx of tobacco abuse; hx of uterine cancer s/p hysterectomy A total of 40 minutes of time were spent preparing this complex discharge summary. Plan - Discharge Summary Discharge Rx Participant: Yes New Discharge Prescriptions: No Action Naproxen Sodium [Aleve] 440 mg PO DAILY PRN PRN Reason: Pain Aspirin EC [Ecotrin Low Dose] 81 mg PO DAILY Nystatin 100,000 Unit/gm Powd [Mycostatin Powder] 1 applic TOPICAL TID Periguard Ointment 1 applic TOPICAL TID@0800,1200,1800 Discharge Medication List Aspirin EC [Ecotrin Low Dose] 81 mg PO DAILY 03/17/19 [History] Naproxen Sodium [Aleve] 440 mg PO DAILY PRN 03/17/19 [History] Nystatin 100,000 Unit/gm Powd [Mycostatin Powder] 1 applic TOPICAL TID 03/29/19 [History] Periguard Ointment 1 applic TOPICAL TID@0800,1200,1800 03/29/19 [History] Follow up Appointment(s)/Referral(s): None,Stated [Primary Care Provider] - 1-2 days Activity/Diet/Wound Care/Special Instructions: Patient will be admitted Discharge Disposition: - Preliminary Cause of Preliminary Cause of : Perforated duodenal ulcer
== END 2019-04-02 11:46 | disposition expired | DRG 326 ==
LOC: EC 15:18 → 2SICU 21:04
PROVIDERS: ADMIT Internal Medicine; ATTEND Internal Medicine
PROC: 0DQ90ZZ Repair Duodenum, Open Approach (ICD-10-PCS; 2019-03-30)
PROC: 3E1M38Z Irrigation of Peritoneal Cavity using Irrigating Substance, Percutaneous Approach (ICD-10-PCS; 2019-03-30)
PROC: 0DU907Z Supplement Duodenum with Autologous Tissue Substitute, Open Approach (ICD-10-PCS; principal; 2019-03-30 05:30)
PROC: 03HY32Z Insertion of Monitoring Device into Upper Artery, Percutaneous Approach (ICD-10-PCS; 2019-04-01)
PROC: 5A09357 Assistance with Respiratory Ventilation, Less than 24 Consecutive Hours, Continuous Positive Airway Pressure (ICD-10-PCS; 2019-04-01)
PROC: 4A133B1 Monitoring of Arterial Pressure, Peripheral, Percutaneous Approach (ICD-10-PCS; 2019-04-01)
PROC: 4A133J1 Monitoring of Arterial Pulse, Peripheral, Percutaneous Approach (ICD-10-PCS; 2019-04-01)
PROC: 3E0436Z Introduction of Nutritional Substance into Central Vein, Percutaneous Approach (ICD-10-PCS; 2019-04-01)
DX: K26.5 Chronic or unspecified duodenal ulcer with perforation (principal); L89.323 Pressure ulcer of left buttock, stage 3; L89.313 Pressure ulcer of right buttock, stage 3; K65.9 Peritonitis, unspecified; G93.41 Metabolic encephalopathy; I21.4 Non-ST elevation (NSTEMI) myocardial infarction; I50.23 Acute on chronic systolic (congestive) heart failure; J18.9 Pneumonia, unspecified organism; J96.01 Acute respiratory failure with hypoxia; J96.02 Acute respiratory failure with hypercapnia; E43 Unspecified severe protein-calorie malnutrition; R40.2114 Coma scale, eyes open, never, 24 hours or more after hospital admission; E87.2 Acidosis; I42.9 Cardiomyopathy, unspecified; J44.0 Chronic obstructive pulmonary disease with (acute) lower respiratory infection; N17.9 Acute kidney failure, unspecified; R57.0 Cardiogenic shock; Z66 Do not resuscitate; D64.9 Anemia, unspecified; E78.5 Hyperlipidemia, unspecified; E86.0 Dehydration; E87.8 Other disorders of electrolyte and fluid balance, not elsewhere classified; T50.3X5A Adverse effect of electrolytic, caloric and water-balance agents, initial encounter; I95.1 Orthostatic hypotension; M19.90 Unspecified osteoarthritis, unspecified site; M41.9 Scoliosis, unspecified; Z79.82 Long term (current) use of aspirin; Z82.49 Family history of ischemic heart disease and other diseases of the circulatory system; Z83.3 Family history of diabetes mellitus; Z85.42 Personal history of malignant neoplasm of other parts of uterus; Z87.891 Personal history of nicotine dependence; Z90.710 Acquired absence of both cervix and uterus; R34 Anuria and oliguria; Z68.27 Body mass index [BMI] 27.0-27.9, adult; Z88.0 Allergy status to penicillin; Z79.1 Long term (current) use of non-steroidal anti-inflammatories (NSAID); Z98.1 Arthrodesis status; Z79.899 Other long term (current) drug therapy; Z51.5 Encounter for palliative care
CPT/HCPCS: 36415; 36600; 71045; 71046; 74018; 74177; 80048; 80053; 80061; 81001; 82150; 82330; 82805; 83605; 83690; 83735; 84100; 84132; 84484; 85025; 85610; 85730; 86850; 86900; 86901; 87040; 87070; 87075; 87086; 87205; 93005; 93306; 94640; 94660; 96361; 96365; 96367; 96374; 96375; 96376; 99291